=== PATIENT | female | born 1935 | race Caucasian/White ===

== ENCOUNTER 2017-01-18 04:27 | Inpatient (IN) ==
[2017-01-18] MEDS ORDERED: BISACODYL 10 MG SUPP.RECT PR PRN ×2 (07:11→22:37)
[2017-01-18] MEDS ORDERED: ONDANSETRON 4 MG/2 ML VIAL IV PRN ×4 (07:11→22:37)
[2017-01-18] MEDS ORDERED: HYDROmorphone 2 MG/ML SYRINGE IV PRN (07:11)
[2017-01-18] MEDS ORDERED: ACETAMINOPHEN 1,000 MG/100 ML BOTTLE IV PRN ×2 (07:11→22:37)
[2017-01-18] MEDS ORDERED: ACETAMINOPHEN 325 MG TABLET PO PRN (07:11)
[2017-01-18] MEDS ORDERED: PANTOPRAZOLE 40 MG VIAL IV SCH (07:30)
[2017-01-18] MEDS ORDERED: 0.9 % SODIUM CHLORIDE 250 ML IV SCH (08:00)
--- NOTE | 2017-01-18 08:43 | History and Physical Report ---
DATE OF ADMISSION: 01/18/2017 REASON FOR ADMISSION: Fall with left shoulder injury. HISTORY OF CHIEF COMPLAINT: The patient is a 81-year-old who was seen in [place] at [facility] after she fell in the bathroom, sustaining injury to right shoulder. Initial workup revealed comminuted fracture of left shoulder. Exact precipitant of fall was unclear; however, patient was confused. She to attempting to take a shower. Initial evaluation by the EMS Service revealed low blood sugars around 30. Other than that, patient denies loss of consciousness, incontinence, recent diarrhea, weakness, or medication changes, chest palpitation, thunderclap headaches. There were no available beds at [facility]. Hospitalist Service at [facility] was consulted along with Orthopedic Surgeon, Dr. Boyce and Egg Smeller, Dr. Yeung by Dr. Fisher, [facility] physician. The patient was subsequently transferred. Initial workup including chest imaging was negative except for white count of 17.4. The patient has been afebrile and hemodynamically stable. REVIEW OF SYSTEMS: Ten-point review of system was performed and negative except the ones discussed above. PAST MEDICAL HISTORY: 1. Significant for ESRD on hemodialysis since 2014, managed by Dr. Gilbert. 2. Diabetes mellitus type 2. 3. Left upper extremity fistula placement with Dr. Chase, currently on Plavix. 4. Hypertension. 5. Anxiety disorder. 6. Hyperlipidemia. CURRENT MEDICATIONS: 1. Atorvastatin 80 mg. 2. Glimipiride 2 mg . 3. Sertraline 75 mg. 4. Nadolol 8 mg b.i.d. 5. Clonidine 1 tab t.i.d. 6. Levothyroxine 1 tab daily. 7. Plavix 1 tab daily. 8. Lisinopril 20 mg b.i.d. 9. Torsemide 100 mg q.a.m. ALLERGIES: KNOWN TO SULFA. FAMILY HISTORY: Significant for coronary artery disease, myocardial infarction in son and father. SOCIAL HISTORY: The patient resides at [place]. Her daughter is accompanying her. She is a former smoker, quit in 1974; occasional alcohol, as per patient once or twice a year. CODE STATUS: FULL CODE. PAST SURGICAL HISTORY: 1. Appendectomy. 2. Subclavian dialysis catheter placement. 3. Cholecystectomy. 4. Fistula placement. 5. Hysterectomy. 6. Peritoneal dialysis shunt. PHYSICAL EXAMINATION: GENERAL: The patient is alert, oriented, in moderate distress, appears pale. VITAL SIGNS: Reviewed from medical records, stable, afebrile, heart rate around 60s. HEENT: Pupils symmetric. Oral cavity is dry. No ear or nose discharge. Head is normocephalic and atraumatic. NECK: No lymphadenopathy. CHEST: S1, S2 regular rhythm. ESM grade 1. Diminished breath sounds at bases. ABDOMEN: Soft and nontender. EXTREMITIES: Left upper extremity currently in sling. Lower extremities: No cyanosis or clubbing. No joint swelling. SKIN: No suspicious lesions. PSYCHIATRIC: Alert and cooperative, mild anxiety. NEURO: Nonfocal, normal higher function on limited neuro exam. LABS AND IMAGING: White count 17.4, hemoglobin 7.4, sodium 128, potassium 4.8, creatinine 5.1. X-ray chest: Unremarkable for acute process. X-ray shoulder: Comminuted left shoulder fracture. ASSESSMENT AND PLAN: A 81-year-old with left shoulder comminuted fracture. 1. Left shoulder fracture, will be managed by Orthopedics, Dr. Boyce. 2. Hospitalist consult for medical issues: a. History of diabetes mellitus type 2. Continue basal prandial insulin. b. Hypothyroidism. Continue thyroxine. c. Hyperlipidemia. Continue statin. d. Hypertension. Continue lisinopril and nadolol. e. Anxiety disorder. Continue sertraline. f. End-stage renal disease, on hemodialysis. Continue hemodialysis per Nephrology. Dr. Yeung has been consulted by ER physician at [place]. g. History of peripheral vascular disease. Continue Plavix. h. Anemia likely secondary to chronic kidney disease-2 units blood transfusion preop. AA:alex Job ID: [id number] Doc ID: [id number] Gray Yeung MD
--- NOTE | 2017-01-18 11:06 | Cat Scan Report ---
History: Fell and fractured shoulder Findings: The shoulder was imaged in axial plane at 2.5 mm intervals. Oblique coronal and oblique sagittal along with 3-D volume rendered images were then created. There is an acute comminuted fracture of the proximal humerus. There is a transverse component through the surgical neck. There are small comminuted fractures along the medial side of the neck fracture. There is up to 45 degrees anterior angulation at the junction of the shaft and humeral head. There is impaction of the shaft into the head along the posterior aspect of the fracture line. There is also a comminuted multi partite fracture involving the greater and lesser tuberosities. The alignment of the tuberosities is nearly anatomic. There is relatively little displacement of those fragments. The humeral head remains normally aligned with the glenoid.. The fracture does not extend to the articular surface of the humerus. The scapula and clavicle are normal without evidence of fracture. The visualized left ribs are also normal with no fracture. Impression: Multi partite fracture of the surgical neck of the humerus extending into the tuberosities Interpreted and Authenticated by: Raghu Montgomery 01/18/17
[2017-01-18] MEDS ORDERED: 0.9 % SODIUM CHLORIDE 1,000 ML IV SCH ×4 (11:15→22:37)
[2017-01-18] MEDS: DOCUSATE SODIUM 100 MG CAPSULE PO SCH ×2 (12:28→21:58)
[2017-01-18] MEDS: HEPARIN 5,000 UNIT/ML VIAL SQ SCH ×2 (12:29→21:58)
[2017-01-18] MEDS: 0.9 % SODIUM CHLORIDE 10 ML SYRINGE IV SCH (12:29)
[2017-01-18 13:11] LABS: Hemoglobin A1C 4.7 % HGB (4.0-6.0)
[2017-01-18] MEDS ORDERED: hydrALAZINE 20 MG/ML VIAL IV PRN ×2 (15:13→22:37)
[2017-01-18] MEDS ORDERED: CALCIUM CARBONATE 500 MG TAB.CHEW CHEWED PRN ×2 (17:18→22:37)
[2017-01-18] MEDS ORDERED: cloNIDine HCL 0.1 MG TABLET PO PRN ×2 (17:20→22:37)
[2017-01-18] MEDS ORDERED: SEVELAMER 800 MG TABLET PO SCH (17:30)
[2017-01-18] MEDS ORDERED: cefTRIAXone 2 GM in DEXTROSE 5% IN WATER 50 ML IV SCH (18:30)
[2017-01-18] MEDS ORDERED: cefTRIAXone 1 GM VIAL ONE (19:33)
[2017-01-18] MEDS ORDERED: cefTRIAXone 2 GM VIAL ONE (19:35)
[2017-01-18] MEDS ORDERED: IOPAMIDOL 100 ML BOTTLE IJ ONE (19:42)
--- NOTE | 2017-01-18 19:44 | Internal Med Progress Note ---
Medical - PN: Subj Patient information: Note initiated : 01/18/17 at 7:40 pm Service Date, if different from initiated Date: [] Patient: Debra Wolff 81 y/o F admitted on 01/18/17 for Fracture/dislocation. Chief Complaint: [] Interval history: /-patient admitted after a fall with right humerus and hip fracture. History of ESRD on HD management nephrology. Await orthopedics intervention. Review postop - Constitutional Vitals: Vital Signs Temp Pulse Resp BP Pulse Ox 99.8 F H 86 18 159/46 94 01/18/17 16:00 01/18/17 16:00 01/18/17 16:00 01/18/17 16:00 01/18/17 16:00 Period Temp Pulse Resp BP Sys/Spence Pulse Ox Last 24 Hr 98.7 F-99.8 F 62-93 17-20 109-197/31-92 92-95 Intake and Output 01/18/17 01/18/17 01/18/17 05:59 13:59 21:59 Intake Total 700 / 700 107 / 107 Output Total 40453 / 64161 5704 / 5704 Balance -24030 / -86722 -5597 / -5597 Weight 120 lb 8 oz Patient Weight 01/19/17 05:59 Weight 120 lb 8 oz Intake & Output: Intake & Output 01/18/17 01/18/17 01/18/17 05:59 13:59 21:59 Intake Total 700 / 700 107 / 107 Output Total 69308 / 24123 5704 / 5704 Balance -49436 / -68272 -5597 / -5597 Weight 120 lb 8 oz Intake: IV 107 / 107 Sodium Chloride 0.9% 250 7 / 7 ml @ 20 mls/hr IV . [id number] [facility] Rx#:[id number] Blood Product 700 / 700 Output: Hemodialysis UF 83231 / 43637 5704 / 5704 General appearance: cooperative, no acute distress Medical - PN: Obj Da - Labs CBC & Chem 7: 01/19/17 05:35 01/19/17 05:35 Meds: Medications Acetaminophen (Tylenol) 650 mg PO Q4-6HP PRN PRN Reason: PAIN/FEVER > 101 Bisacodyl (Dulcolax) 10 mg IA Q2-3DAYS PRN PRN Reason: Constipation Calcium Carbonate/Glycine (Tums) 500 mg CHEWED Q4HP PRN PRN Reason: Dyspepsia Clonidine HCl (Catapres) 0.1 mg PO TID [facility] Clonidine HCl (Catapres) 0.1 mg PO Q2HP PRN PRN Reason: Hypertension Docusate Sodium (Colace) 100 mg PO BID [facility] Last Admin: 01/18/17 12:28 Dose: Not Given Heparin Sodium (Porcine) (Heparin) 5,000 unit SQ Q12 [facility] Last Admin: 01/18/17 12:29 Dose: Not Given Hydralazine HCl (Apresoline) 10 mg IV Q4-6HP PRN PRN Reason: Hypertension Hydromorphone HCl (Dilaudid) 0 mg IV Q4HP PRN PRN Reason: Pain Last Admin: 01/18/17 09:34 Dose: 0.5 mg Acetaminophen (Ofirmev) 1,000 mg in 100 mls @ 200 mls/hr IV Q6HP PRN PRN Reason: PAIN/FEVER > 101 Last Infusion: 01/18/17 17:15 Dose: Infused Sodium Chloride (Sodium Chloride 0.9%) 250 mls @ 20 mls/hr IV .[id number] [facility] Stop: 01/18/17 20:29 Last Infusion: 01/18/17 14:30 Dose: Infused Sodium Chloride (Sodium Chloride 0.9%) 1,000 mls @ 50 mls/hr IV .Q20H [facility] Stop: 01/19/17 07:14 Last Admin: 01/18/17 12:00 Dose: 50 mls/hr Ceftriaxone Sodium 2 gm/ (Dextrose) 50 mls @ 100 mls/hr IV Q24H [facility] Lisinopril (Zestril) 20 mg PO BID [facility] Minoxidil (Minoxidil) 2.5 mg PO BID [facility] Nadolol (Corgard) 80 mg PO BID [facility] Ondansetron HCl (Zofran) 4 mg IV Q4-6HP PRN PRN Reason: Nausea And Vomiting Pantoprazole Sodium (Protonix) 40 mg IV QAMAC [facility] Last Admin: 01/18/17 13:11 Dose: 40 mg Senna/Docusate Sodium (Senna Plus Tablet) 1 tab PO HS [facility] Sevelamer Carbonate (Renvela) 1,600 mg PO TIDCC [facility] Last Admin: 01/18/17 18:37 Dose: Not Given Sodium Chloride (Saline Flush) 10 ml IV Q8 [facility] Last Admin: 01/18/17 12:29 Dose: Not Given Torsemide (Demadex) 100 mg PO DAILY [facility] Medical - PN: A/P - Time Spent With Patient Total time spent is greater than 50% in coordination of care (as documented) at patient's floor/unit and/or counseling patient: 25 - 35 minutes (1) Closed left hip fracture Status: Acute Assessment and plan: * left hip fracture-orthopedics on board. Surgery today * Left shoulder fracture-nonoperable as per surgery * Pain management on as needed opioids Issues managed by hospitalist service * Hypertension meds on hold * history of PVD/upper extremity fistula lacement by IR-on Plavix * ESRD on HD Current Visit: Yes Medical - PN: Qual - VTE Deep Vein Thrombosis/Pulmonary Embolism Present on Admission: No
[2017-01-18] MEDS ORDERED: KETAMINE 100 MG/ML ML IV ONE (20:45)
[2017-01-18] MEDS ORDERED: MIDAZOLAM 5 MG/5 ML VIAL IV ONE (20:45)
[2017-01-18] MEDS ORDERED: DEXAMETHASONE 10 MG/ML VIAL IV ONE (20:45)
[2017-01-18] MEDS ORDERED: PROPOFOL 200 MG/20 ML VIAL IV ONE (20:45)
[2017-01-18] MEDS ORDERED: NADOLOL 40 MG TABLET PO SCH (21:00)
[2017-01-18] MEDS ORDERED: cloNIDine HCL 0.1 MG TABLET PO SCH (21:00)
[2017-01-18] MEDS ORDERED: LISINOPRIL 20 MG TABLET PO SCH (21:00)
[2017-01-18] MEDS ORDERED: SENNOSIDES/DOCUSATE SODIUM 1 TAB TABLET PO SCH (21:00)
[2017-01-18] MEDS ORDERED: MINOXIDIL 2.5 MG TABLET PO SCH (21:00)
[2017-01-18] MEDS ORDERED: IPRATROPIUM/ALBUTEROL 3 ML AMPUL.NEB NEB PRN ×2 (21:06→22:37)
[2017-01-18] MEDS ORDERED: NALOXONE HCL 0.4 MG/ML VIAL IV PRN ×2 (21:06→22:37)
[2017-01-18] MEDS ORDERED: 0.9 % SODIUM CHLORIDE 250 ML IV PRN ×2 (21:06→22:37)
[2017-01-18] MEDS ORDERED: diphenhydrAMINE 50 MG/ML VIAL IV PRN ×2 (21:06→22:37)
[2017-01-18] MEDS ORDERED: METHOCARBAMOL 1,000 MG/10 ML VIAL IV PRN ×2 (21:06→22:37)
[2017-01-18] MEDS ORDERED: fentaNYL 100 MCG/2 ML VIAL IV PRN ×2 (21:06→22:37)
[2017-01-18] MEDS ORDERED: BENZOCAINE/MENTHOL 1 LOZENGE PO PRN ×2 (21:06→22:37)
[2017-01-18] MEDS ORDERED: FLUMAZENIL 0.1 MG/ML ML IV PRN ×2 (21:06→22:37)
[2017-01-18] MEDS ORDERED: PROMETHAZINE 25 MG/ML VIAL IV PRN ×2 (21:06→22:37)
--- NOTE | 2017-01-18 21:31 | Brief Operative Note ---
Date of procedure: 01/18/17 Pre-op diagnosis: left hip gamma nail Post-op diagnosis: same Grafts/Implants: Yes Anesthesia: GETA Complications: none Surgeon: Jacinto Boyce Ends Breakage Clerk: Panfilo Guzman Estimated blood loss (cc): 50 Specimens Removed/Pathology: none sent Condition: stable Disposition: PACU
--- NOTE | 2017-01-18 22:10 | General Surgery Progress Note ---
Subjective Narrative: Note initiated : 01/18/17 at 10:04 pm Service Date, if different from initiated Date: [] Patient: Debra Wolff 81 y/o F admitted on 01/18/17 for Fracture/dislocation. Chief Complaint: [] Objective Temp Pulse Resp BP Pulse Ox 99.8 F H 86 18 159/46 94 01/18/17 16:00 01/18/17 16:00 01/18/17 16:00 01/18/17 16:00 01/18/17 16:00 - Additional Data Intake & Output - Last 24 hours: Intake & Output 01/16/17 01/17/17 01/18/17 01/19/17 05:59 05:59 05:59 05:59 Intake Total 1607 / 1607 Output Total 87111 / 58956 Balance - / - Weight 120 lb 8 oz - Labs Diabetes panel 01/18/17 Range/Units 11:27 Hemoglobin A1c 4.7 (4.0-6.0) % [facility] Medical - PN: A/P - Time Spent With Patient Total time spent is greater than 50% in coordination of care (as documented) at patient's floor/unit and/or counseling patient: less than 15 minutes - Narrative A/P Narrative: Patient with EKG changes in PACU on 3 lead telemetry. Repeat 12 Lead EKG ordered and obtained in PACU. Computerized read suggests diffuse ischemia (see EKG printout in chart). Dr. Isaacs called and notified of EKG changes. Patient is asymptomatic with stable vital signs following stable interoperative course. Dr. Isaacs ordered cardiac enzymes. 500 cc fluid challenge administered in PACU. Patient will be transferred to telemetry with Dr. Isaacs managing care upon discharge from PACU.
[2017-01-18] MEDS ORDERED: 0.9 % SODIUM CHLORIDE 500 ML IV ONE (22:22)
[2017-01-18 23:10] LABS: Creatine Kinase 288 IU/L (24-170); Creatine Kinase MB 3.6 ng/ml (0-2.9)
[2017-01-19] MEDS: 0.9 % SODIUM CHLORIDE 10 ML SYRINGE IV SCH ×4 (00:34→22:22)
[2017-01-19] MEDS ORDERED: METOPROLOL TARTRATE 5 MG/5 ML VIAL IV ONE ×3 (00:54→01:14)
[2017-01-19] MEDS: METOPROLOL TARTRATE 5 MG/5 ML VIAL IV SCH ×3 (00:55→01:16)
--- NOTE | 2017-01-19 05:48 | Consultation ---
DATE OF CONSULTATION: 01/18/2017 TYPE OF CONSULTATION: Renal artery and __ consultation. REFERRING PHYSICIAN: Gray Rivas MD REASON FOR CONSULTATION: End-stage renal disease on hemodialysis. HISTORY OF PRESENT ILLNESS: Miss Wolff is a 81-year-old female who has end-stage renal disease and hemodialysis at [facility]. She has dialysis on Tuesdays, and Saturdays. She presented to the [place] emergency room after a fall. She sustained injury to her left shoulder. It appears that she was hypoglycemic at the time. When the EMT arrived and checked her blood sugar, her sugar was around 30. She denies any loss of consciousness. From the [facility] emergency room, she was transferred to [facility] because there were no beds avaialble at [facility]. She is also found to have fracture of left hip. PAST MEDICAL HISTORY significant for: 1. End-stage renal disease, on hemodialysis since 01/08/2015. She dialyses on Sunday, and Saturdays at [facility]. 2. Type 1 diabetes with all of the complciations of diabetes including diabetic retinopathy, neuorpathy and nephropathy. 3. Difficult hypertension. 4. Anxiety disorder. 5. Hyperlipidemia. CURRENT MEDICATIONS: Currently, she is on Atorvastatin 80 mg once daily. Glimepiride 2 mg once daily. Sertraline 75 mg once daily. Nadolol 80 mg twice daily. Claritin 0.1 mg three times daily. Levothyroxine 1 tablet once daily. Plavix 1 tablet daily. Lisinopril 20 mg twice daily. Torsemide 100 mg once daily. ALLERGIES: ALLERGIC TO SULFA. FAMILY HISTORY: Sgnificant for coronary artery disease. Her son of an [place]. SOCIAL HISTORY: The patient lives in [place]. Her daughter is a [employer] sql developer in [place]. CODE STATUS: She is FULL CODE. PAST SURGICAL HISTORY: history of hemodialysis catheter placement, cholecystectomy, a fistula surgery, hysterectomy, and she had a peritoneal dialysis catheter as well. PHYSICAL EXAMINATION: VITAL SIGNS: Her blood pressure is 170-190 systolic with a diastolic in the 50s. Pulse is in the 60s. Pulse oximetry was 92-95 percent on room air. GENERAL: She is alert, oriented times 3. She is not in any distress. HEENT: NC/AT, PERRLA, EOMI. No pallor, no cyanosis, no icterus. Fundus examination is not performed. tympanic membranes appear normal. Oral cavity appears normal. Normal mucosa. NECK: Supple. No jugulovenous distention or lymphadenopathy. No thyromegaly. No carotid bruits. LUNGS: Decreased air entry bilaterally. No rales or rhonchi. HEART: S1 and S2 heard. No S3 or S4. No murmurs, no rubs. ABDOMEN: Soft, nontender, no organomegaly. Positive bowel sounds. No mass, no rebound. EXTREMITIES: Did not show evidence of edema. Difficult to palpate dorsalis pedis and posterior tibialis. No skin rash or joint swelling is noted. NEURO: Her higher functions are normal. Cranial nerves are normal. No sensory or motor deficits. LABORATORY DATA: Apparently, she had a hemoglobin of 7.4 [address] lab done at [facility]. Her creatinine was 5.1 with a potassium of 4.8. ASSESMENT AND PLAN: 1. End-stage renal disease secondary to type 1 diabetes. She usually dialyzes on Sunday, and Sunday at the [facility]. She is due for dialysis today and I have written the orders and I saw the patient on dialysis. She is being dialyzed with a potassium of 3.0 with calcium of 2.5 and will have about 2 liters of fluid removed. 2. Anemia of multiple factors. She will receive 2 units of blood transfusion. 3. Multiple other problems, management per hospitalist. NOMI: Job ID: [id number] Doc ID: [id number] Jose Rivas MD [facility]
--- NOTE | 2017-01-19 06:09 | Orthopedic Progress Note ---
Subjective Patient information: Note initiated : 01/19/17 at 6:07 am Service Date, if different from initiated Date: [] Patient: Derba Wolff 81 y/o F admitted on 01/18/17 for Fracture/dislocation. Chief Complaint: [] Principal diagnosis: S/P left cephalomedullary nailing Interval history: Doing well this morning. Alert and oriented. States that hip feels better and is having no pain just laying there like she was yesterday. Still has some anticipated pain with PROM. No complaints today. Went into Afib last night after surgery but was converted back to normal sinus rhythm early this morning. Scheduled for dialysis today. Objective Vital signs: Vital Signs Temp Pulse Pulse Pulse Resp BP BP 01/19/17 01:50 97.5 F L 128 H 14 114/50 01/19/17 01:00 97.6 F 144 H 14 131/40 01/19/17 00:27 97.5 F L 132 H 14 107/60 01/19/17 00:04 97.5 F L 123 H 14 111/48 01/18/17 23:30 97.5 F L 136 H 14 114/65 01/18/17 23:15 97.5 F L 121 H 16 122/78 01/18/17 23:00 121 H 16 120/75 01/18/17 22:45 129 H 16 121/72 01/18/17 22:40 134 H 18 149/64 01/18/17 22:25 129 H 20 123/43 01/18/17 22:10 97.8 F 132 H 18 140/60 01/18/17 21:55 139 H 18 140/60 01/18/17 21:40 97.8 F 86 86 18 110/26 01/18/17 16:00 99.8 F H 86 18 159/46 01/18/17 14:17 99.1 F 71 194/66 01/18/17 14:02 75 193/92 01/18/17 13:45 93 H 197/42 01/18/17 13:32 68 174/44 01/18/17 13:12 68 181/44 01/18/17 12:58 66 162/33 01/18/17 12:42 65 156/31 01/18/17 12:28 81 134/76 01/18/17 12:14 65 159/31 01/18/17 12:00 98.7 F 66 20 01/18/17 11:58 66 141/45 01/18/17 11:44 67 155/58 01/18/17 11:28 62 116/68 01/18/17 11:19 98.8 F 81 109/42 01/18/17 08:00 99.1 F 71 18 01/18/17 06:45 99.1 F 66 17 BP Pulse Ox 01/19/17 01:50 01/19/17 01:00 98 01/19/17 00:27 98 01/19/17 00:04 95 01/18/17 23:30 96 01/18/17 23:15 97 01/18/17 23:00 99 01/18/17 22:45 99 01/18/17 22:40 99 01/18/17 22:25 99 01/18/17 22:10 99 01/18/17 21:55 99 01/18/17 21:40 01/18/17 16:00 94 01/18/17 14:17 01/18/17 14:02 01/18/17 13:45 01/18/17 13:32 01/18/17 13:12 01/18/17 12:58 01/18/17 12:42 01/18/17 12:28 01/18/17 12:14 01/18/17 12:00 141/45 95 01/18/17 11:58 01/18/17 11:44 01/18/17 11:28 01/18/17 11:19 01/18/17 08:00 132/48 92 01/18/17 06:45 138/46 95 Intake and Output 01/18/17 01/19/17 01/19/17 21:59 05:59 13:59 Intake Total 907 / 907 290 / 290 Output Total 5754 / 5754 Balance -4847 / -4847 290 / 290 Intake: IV 907 / 907 50 / 50 Sodium Chloride 0.9% 250 7 / 7 ml @ 20 mls/hr IV . [id number] [facility] Rx#:[id number] Dextrose 5% in Water 50 50 / 50 ml @ 100 mls/hr IV Q24H [facility] with Rocephin 2 gm Rx #:[id number] Oral 240 / 240 Output: Hemodialysis UF 5704 / 5704 Estimated Blood Loss 50 / 50 Intake & Output: Intake & Output 01/18/17 01/19/17 01/19/17 21:59 05:59 13:59 Intake Total 907 / 907 290 / 290 Output Total 5754 / 5754 Balance -4847 / -4847 290 / 290 Intake: IV 907 / 907 50 / 50 Sodium Chloride 0.9% 250 7 / 7 ml @ 20 mls/hr IV . [id number] [facility] Rx#:[id number] Dextrose 5% in Water 50 50 / 50 ml @ 100 mls/hr IV Q24H [facility] with Rocephin 2 gm Rx #:[id number] Oral 240 / 240 Output: Hemodialysis UF 5704 / 5704 Estimated Blood Loss 50 / 50 Incision: Yes clean and dry Incision clean and dry: Yes Dressing: Yes clean, Yes dry, Yes intact Weight bearing status: non Neurological exam IM: Yes alert, Yes oriented X3, Yes motor sensory intact Extremities exam IM: No calf tenderness, No Hetal's sign, Yes neurovascular intact - Periperhal Pulses Peripheral pulses: 2+: dorsalis pedis (L), dorsalis pedis (R), posterior tibialis (L), posterior tibialis (R) - Labs CBC & BMP: 01/19/17 05:35 01/19/17 05:35 Labs: 01/19/17 05:35 Hgb Pending Hct Pending Assessment and Plan (1) Closed left hip fracture PO day 1 s/p left cephalomedullary nailing; nondisplaced acetabular fracture; displaced 3 part prox humerus fracture; TTWB but due to the proximal humerus fracture she will need to be in a wheelchair as she can't use that shoulder with a walker NWB Left upper extremity Probably need for SNF placement Status: Acute Qualifiers: Encounter type: subsequent encounter Fracture healing: with routine healing Qualified Code(s): S72.002D - Fracture of unspecified part of neck of left femur, subsequent encounter for closed fracture with routine healing
[2017-01-19 06:25] LABS: Mean Cell Volume 94.3 fL (80.0-100.0); Mean Corpuscular Hemoglobin 31.1 pg (26.0-34.0); Platelet Count 200 K/mcL (140-440); RBC 3.78 M/mcL (4.00-5.20); Red Cell Distribution Width 16.4 % (11.5-14.5)
[2017-01-19 06:30] LABS: Creatine Kinase MB 6.7 ng/ml (0-2.9)
[2017-01-19 06:32] LABS: ALT/SGPT 47 U/l (0-40); Albumin 3.4 gm/dL (3.2-5.2); Albumin/Globulin Ratio 0.9 (1.0-2.3); Alkaline Phosphatase 174 U/L (39-117); Bilirubin,Direct 0.3 mg/dL (0.0-0.3); Blood Urea Nitrogen 22 mg/dl (8-23); Gamma Glutamyl Transpeptidase 91 U/L (5-36); Magnesium 2.1 mg/dL (1.6-2.5); Phosphorous 5.7 mg/dL (2.7-4.5); Uric Acid 3.2 mg/dL (2.5-8.0)
[2017-01-19 06:59] LABS: Anisocytosis 1+ (NONE SEEN); Band Neutrophils % 4 % (0-10); Lymphocytes % 6 % (15-49); Monocytes % (Manual) 2 % (1-9); Platelet Estimate NORMAL (NORMAL); RBC Morphology ABNORM (NORMAL); Segmented Neutrophils % 88 % (38-78); Toxic Granulation 1+ (NONE SEEN)
--- NOTE | 2017-01-19 07:42 | Cat Scan Report ---
History: Fell with left-sided hip injury Findings: The pelvis is imaged without contrast at 2.5 mm intervals. Sagittal and coronal reformats were created. There is an acute minimally displaced fracture involving the anterior column of the left acetabulum. There are spurs along the margin of the greater trochanter. There is no clearly identified fracture of the proximal femur. There is also a fracture in the left inferior pubic ramus. A subtle vertically oriented fracture is present in the medial side of the left pubic bone, contiguous with the symphysis pubis.. There is subcutaneous edema lateral to the hip. No intrapelvic hematoma is present. Left SI joint is normal. Impression: Fractures of the anterior column of the left ischium, left inferior pubic ramus and left pubic bone The ICU was called with results Interpreted and Authenticated by: Raghu Montgomery 01/19/17
--- NOTE | 2017-01-19 07:50 | XRay Report ---
HISTORY: Reason for Exam:surgery FINDINGS: A brandon has been inserted through the greater trochanter into the mid shaft of the femur. There is a crossing pin extending through the brandon into the femoral head. No fracture line is seen in the femoral neck or intertrochanteric region. There are small spur along the margin of the greater trochanter. The fractured left inferior pubic ramus is in good alignment. Vascular calcifications are present in the pelvis and groin. The bowel gas pattern is normal. IMPRESSION: Well-positioned hardware in the proximal femur Interpreted and Authenticated by: Raghu Montgomery 01/19/17
[2017-01-19] MEDS: PANTOPRAZOLE 40 MG VIAL IV SCH (07:56)
--- NOTE | 2017-01-19 07:56 | Cat Scan Report ---
CLINICAL INFORMATION: Pulsatile mass in the midabdomen and pelvic fracture COMPARISON: None. TECHNIQUE: 100-cc of Optiray 320 were injected intravenously and using SmartPrep, 0.625 helical slices were obtained throughout the entire abdominal aorta and iliac arteries. Following reconstruction, 2.5-mm axial, sagittal, and coronal images were processed and reviewed. 3D images were also processed. FINDINGS: There are thin bands of scar or discoid atelectasis in the lung bases. The liver and spleen are normal in size and homogeneous. The gallbladder is been removed. The pancreas and adrenals are normal. The kidneys are normal in size and contour and there is no hydronephrosis or significant loss of renal parenchyma. There are densely calcified plaques along the wall normal caliber abdominal aorta. There is no aneurysm or dissection. There is severe atherosclerotic disease causing severe stenosis at the origins of the celiac and superior mesenteric arteries. There are relatively mild stenosis at the origins of the renal arteries. There is no abdominal mass or adenopathy. No ascites is present. There is no intraperitoneal hemorrhage. There are numerous diverticula in the sigmoid colon but without evidence of diverticulitis. A large amount of fecal material is present in the colon. The small bowel is mild ileus pattern. There is a buckle fracture along the anterior margin of the superior portion of the left sacrum. This was outside of the field of view on the preceding hip CT.12 fractures are again noted in the anterior: Left acetabulum left inferior pubic ramus and pubic bone. There is severe disc space narrowing at L5-S1. IMPRESSION: 1. Atherosclerosis in the aorta but there is no aneurysm. 2. Fracture left sacrum, left ischium and left pubic bone 3. Diverticulosis 4. Dr. Rivas was called with results Interpreted and Authenticated by: Raghu Montgomery 01/19/17
[2017-01-19] MEDS ORDERED: TORSEMIDE 10 MG TABLET PO SCH (09:00)
--- NOTE | 2017-01-19 09:31 | History and Physical Report ---
DATE OF ADMISSION: 01/18/2017 CHIEF COMPLAINT: Left shoulder and hip pain. HISTORY: The patient is a 81-year-old female who fell in the bathroom onto her left shoulder and hip. She did not hit her head, had no loss of consciousness. However, she felt that this may be related to low blood sugar which was found to be 30 at that time. She was initially transferred to [facility] and then transferred to [facility] due to bed availability. She is complaining of shoulder and hip pain. No other abnormalities or no other complaints at this time. PAST MEDICAL HISTORY: 1. End-stage renal disease on hemodialysis. 2. Type 2 diabetes. 3. Left upper extremity fistula placement. 4. Hypertension. 5. Anxiety. 6. Hyperlipidemia. PAST SURGICAL HISTORY: 1. Fistula placement. 2. Appendectomy. 3. Cholecystectomy. 4. Hysterectomy. 5. Peritoneal dialysis shunt. MEDICATIONS: 1. Atorvastatin 80 mg p.o. q. day. 2. Glimepiride 2 mg p.o. q. day. 3. Sertraline 75 mg p.o. q. day. 4. Nadolol 8 mg p.o. b.i.d. 5. Clonidine one tablet t.i.d. 6. Levothyroxine one tablet p.o. q. day. 7. Plavix one tablet p.o. q. day. 8. Lisinopril 20 mg p.o. b.i.d. 9. Torsemide 100 mg q.a.m. ALLERGIES: SULFA. FAMILY HISTORY: Significant for coronary artery disease, myocardial infarction. SOCIAL HISTORY: She lives in [place] with her . She is accompanied by her family. She quit smoking in 1974. Occasional alcohol once or twice per year. REVIEW OF SYSTEMS: No recent chest pain, shortness of breath, fever, chills, nausea, vomiting, diarrhea or constipation. PHYSICAL EXAMINATION: GENERAL: Resting on the hospital bed in [id number] pain, alert and oriented x 3 and cooperative to exam. VITALS: Heart rate 60 to 80, temperature 98.6, BP 176/68, sats 98% on room air. HEART: Regular rate and rhythm without murmur or gallop. CHEST: Clear to auscultation in all lung frazier bilaterally. ABDOMEN: Soft, nontender, nondistended. EXTREMITIES: Left upper extremity is in a sling. She is tender to palpation, has some bruising in this area. Full range of motion of the elbow, wrist and fingers. Sensation intact to light touch grossly throughout the extremity, 2+ DP and PT with capillary refill less than 2 seconds. Left hip demonstrates tenderness to palpation in the groin and over the greater trochanter. Pain with any attempt to move the hip. Full range of motion of the right upper and lower extremity. Sensation intact in the lower extremities to light touch grossly, 2+ DP and PT with capillary refill less than 2 seconds. DIAGNOSTIC STUDIES: Radiographs and CT were performed both of the left hip and the left shoulder. Left shoulder demonstrates a comminuted proximal humerus fracture four-part with varus impaction of about 30 degrees. Otherwise stable and in adequate position. The humeral head is well-seated within the glenoid and reduced. The left hip CT demonstrates a nondisplaced intertrochanteric fracture which extends to the greater trochanteric region. There is a nondisplaced lateral acetabular fracture up into the rami. ASSESSMENT: 1. Left proximal humerus comminuted fracture with mild varus angulation but overall in adequate position. 2. Nondisplaced left hip intertrochanteric fracture. 3. Nondisplaced lateral acetabular rim fracture. PLAN: We talked at length about the option on her shoulder. Because of her medical condition and the adequate position currently, we felt that we should watch it and treat it conservatively. We will place her in a sling. No motion of the shoulder at this point. We will plan to see her back in about a week and repeat radiographs to make sure there is no further displacement. If it continues to show adequate position, we will continue to follow it with the goal of it healing nonoperatively. We talked about the possibility and need for physical therapy down the road and possible contracture she could get potentially. As far as the acetabulum goes, it is a small nondisplaced lateral fracture which should heal well. We will have her remain nonweightbearing for about 4 weeks and then gradually progress her weightbearing from there. The intertrochanteric fracture is concerning for potential displacement down the road. We talked about nonoperative versus operative treatment, and she is in quite a bit of pain and with the higher risk of transition to possible displacement, we felt that surgical intervention was warranted. Our plan will be for a left hip intermedullary nailing with a short Gamma nail. The risks and benefits were discussed with the patient in detail including, but not limited to, the risks of anesthesia, problems with the heart or lungs related to anesthesia, infection, compromise or injury to the nerves and blood vessels, deep venous thrombosis, pulmonary embolism, pneumonia, continued pain after surgery, worsening pain or symptoms after surgery, swelling, loss of motion, need for repeat surgery, hardware failure, re-tear or failure of repair site, malunion, nonunion, and hardware pain requiring future removal. We talked about the postoperative course in detail. She and her family wish to proceed. DARRIUS:marija Job ID: [id number] Doc ID: [id number] Hardik Boyce MD
[2017-01-19] MEDS: HEPARIN 5,000 UNIT/ML VIAL SQ SCH ×2 (09:32→22:15)
[2017-01-19] MEDS: LISINOPRIL 20 MG TABLET PO SCH ×2 (09:32→22:17)
[2017-01-19] MEDS: DOCUSATE SODIUM 100 MG CAPSULE PO SCH ×2 (09:33→22:16)
[2017-01-19] MEDS: SEVELAMER 800 MG TABLET PO SCH ×3 (09:33→18:41)
[2017-01-19] MEDS: cloNIDine HCL 0.1 MG TABLET PO SCH ×3 (09:33→22:17)
[2017-01-19] MEDS: cefTRIAXone 2 GM in DEXTROSE 5% IN WATER 50 ML IV SCH (09:36)
--- NOTE | 2017-01-19 09:36 | Operative Note ---
DATE OF OPERATION: 01/18/2017 PREOPERATIVE DIAGNOSIS: Intertrochanteric fracture, left hip. POSTOPERATIVE DIGNOSIS: Intertrochanteric fracture, left hip. PROCEDURE: Left hip cephalomedullary nailing. SURGEON: Hardik Boyce M.D. HANDLE BENDER SURGEON: Panfilo Guzman PA-C. ANESTHESIA: Spinal with LMA assist. ESTIMATED BLOOD LOSS: 50 mL. COMPLICATIONS: None noted. SPECIMENS REMOVED: None. DRAINS: None. IMPLANTS: Yumiko Gamma nail short, 130 degree with an 85 mm lag screw and 5 x 35 mm distal cortical screw. INDICATIONS: The patient fell and was unable to ambulate. Radiographs have confirmed a displaced intertrochanteric fracture of the proximal femur. The patient was admitted to the hospital and underwent medical clearance. After a long discussion about treatment options, the patient elected to proceed with cephalomedullary nailing. The risks and benefits were discussed with the patient in detail including, but not limited to, the risks of anesthesia, problems with the heart or lungs related to anesthesia, infection, compromise or injury to the nerves and blood vessels, deep venous thrombosis, pulmonary embolism, pneumonia, continued pain after surgery, worsening pain or symptoms after surgery, swelling, loss of motion, malunion, non-union, leg length discrepancy, and need for repeat surgery. DESCRIPTION OF PROCEDURE: The patient was seen in pre-anesthesia waiting room where all questions were answered and the correct side and site were identified and marked. The patient was then brought to the operating room and administered the anesthetic and given preoperative antibiotics. A time-out was then called. The patient was placed on the fracture table with all prominences well padded. The leg was brought into traction, adduction, and slight internal rotation. We used C-arm with orthogonal views to confirm anatomic reduction of the fracture. The extremity was prepped and draped in the usual sterile fashion. C-arm was again used to confirm landmarks. A percutaneous incision was created about 4 centimeters proximal to the greater trochanter. A guide pin was placed into the femoral canal under fluoroscopy after we found the appropriate starting position along the medial boarder of the trochanter and just anterior to the center position laterally. We placed a protector sleeve proximally and over-reamed with the 17 mm proximal reamer. Next, we changed out the guide pin for a ball-tipped guide brandon and placed it into the femoral canal. Position was confirmed with the C-arm. The 180 mm Yumiko Gamma nail was then placed with appropriate depth and version using the percutaneous targeting guide. The lateral lag screw sleeve was placed in the targeting guide and a second small percutaneous incision was made to allow the sleeve access to the lateral cortex of the femur. We drilled the guide pin into the center - center position of the femoral head confirmed with fluoroscopy. We measured and drilled over the guide pin. The lag screw was then inserted and we compressed the fracture then placed the proximal screw. The targeting sleeve was again used to place a percutaneous 5.0 mm screw distally in the static hole. It was drilled, measured, and placed using C-arm guidance. Traction was removed on the hip. The targeting device was then removed and final radiographs were taken confirming reduction of the fracture and adequate placement of all hardware. We thoroughly irrigated the three percutaneous incisions and closed the deep fascia with #0 Vicryl. We closed the subcutaneous tissue and skin in layers out to sonja in the skin. A sterile pressure dressing was applied. All needle and sponge counts were correct. The patient was transferred to the recovery room in stable condition. Kim Job ID: [id number] Doc ID: [id number] Hardik Boyce MD
[2017-01-19] MEDS: NADOLOL 40 MG TABLET PO SCH ×2 (09:37→22:15)
[2017-01-19] MEDS: MINOXIDIL 2.5 MG TABLET PO SCH ×2 (10:04→22:14)
[2017-01-19] MEDS: TORSEMIDE 10 MG TABLET PO SCH (10:04)
[2017-01-19] MEDS: ACETAMINOPHEN 325 MG TABLET PO PRN ×2 (10:05→22:16)
--- NOTE | 2017-01-19 12:27 | Internal Med Progress Note ---
Medical - PN: Subj Patient information: Note initiated : 01/19/17 at 12:18 pm Service Date, if different from initiated Date: [] Patient: Debra Wolff 81 y/o F admitted on 01/18/17 for Fracture/Dislocation , Left Shoulder Fracture. Chief Complaint: [] Interval history: 01/18-patient admitted after a fall with Lt humerus and hip fracture. History of ESRD on HD management nephrology. Await orthopedics intervention. Review postop. 01/19-patient seen in room. anesthesia concerned about Intra-Op EKG changes including ST depression. Serial troponins uptrending from 0.06-0.15 likely secondary to anesthesia induced demand ischemia. however patient clearly is asymptomatic without any pain diaphoresis dizziness or unstable hemodynamics. Continue serial trending. patient already on aspirin and Plavix and statin. Patient will require outpatient cardiac stress testing. Extensive peripheral vascular disease as evident on abdominal imaging. hemodialysis ongoing. Postoperative care as per orthopedics along with aggressive rehabilitation. - Constitutional Vitals: Vital Signs Temp Pulse Resp BP Pulse Ox 98.1 F 65 16 167/32 97 01/19/17 10:40 01/19/17 11:50 01/19/17 07:57 01/19/17 11:50 01/19/17 07:57 Period Temp Pulse Resp BP Sys/Spence Pulse Ox Last 24 Hr 97.5 F-99.8 F 65-144 14-20 107-197/26-92 94-99 Intake and Output 01/18/17 01/19/17 01/19/17 21:59 05:59 13:59 Intake Total 907 / 907 290 / 290 400 / 400 Output Total 5754 / 5754 4048 / 4048 Balance -4847 / -4847 290 / 290 -3648 / -3648 Intake & Output: Intake & Output 01/18/17 01/19/17 01/19/17 21:59 05:59 13:59 Intake Total 907 / 907 290 / 290 400 / 400 Output Total 5754 / 5754 4048 / 4048 Balance -4847 / -4847 290 / 290 -3648 / -3648 Intake: IV 907 / 907 50 / 50 50 / 50 Sodium Chloride 0.9% 250 7 / 7 ml @ 20 mls/hr IV . [id number] TERESA Rx#:[id number] Dextrose 5% in Water 50 50 / 50 50 / 50 ml @ 100 mls/hr IV Q24H TERESA with Rocephin 2 gm Rx #:[id number] Oral 240 / 240 350 / 350 Output: Hemodialysis UF 5704 / 5704 4048 / 4048 Estimated Blood Loss 50 / 50 Other: Meal Breakfast Percent of Meal Consumed 100% General appearance: cooperative, no acute distress Exam: alert oriented Left shoulder in sling Left hip postoperative dressing Hemodialysis ongoing no anxiety or agitation nonlabored breathing Medical - PN: Obj Da - Labs CBC & Chem 7: 01/19/17 05:35 01/19/17 05:35 Labs: Abnormal Lab Results 01/19/17 01/19/17 01/19/17 05:35 05:35 05:35 WBC RBC Hgb Hct POC Hct RDW Seg Neutrophils % Lymphocytes % WBC Morphology Toxic Granulation RBC Morphology Anisocytosis POC Chloride Chloride 94 L Carbon Dioxide 21 L Anion Gap 20.0 H Creatinine 3.5 H POC Creatinine Glucose 153 H POC WB Ioniz Calcium Phosphorus 5.7 H GGT 91 H AST 61 H ALT 47 H Alkaline Phosphatase 174 H Lactate Dehydrogenase 387 H Total Creatine Kinase 296 H CK-MB (CK-2) 6.7 H Troponin T 0.15 H* Albumin/Globulin Ratio 0.9 L Triglycerides 178 H 01/19/17 01/18/17 01/18/17 05:35 22:05 22:05 WBC 17.2 H RBC 3.78 L Hgb 11.8 L Hct 35.6 L POC Hct RDW 16.4 H Seg Neutrophils % 88 H Lymphocytes % 6 L WBC Morphology Abnorm A Toxic Granulation 1+ A RBC Morphology Abnorm A Anisocytosis 1+ A POC Chloride Chloride Carbon Dioxide Anion Gap Creatinine POC Creatinine Glucose POC WB Ioniz Calcium Phosphorus GGT AST ALT Alkaline Phosphatase Lactate Dehydrogenase Total Creatine Kinase 288 H CK-MB (CK-2) 3.6 H Troponin T 0.06 H* Albumin/Globulin Ratio Triglycerides 01/18/17 20:20 WBC RBC Hgb Hct POC Hct 31.0 L RDW Seg Neutrophils % Lymphocytes % WBC Morphology Toxic Granulation RBC Morphology Anisocytosis POC Chloride 93 L Chloride Carbon Dioxide Anion Gap Creatinine POC Creatinine 3.0 H Glucose POC WB Ioniz Calcium 1.05 L Phosphorus GGT AST ALT Alkaline Phosphatase Lactate Dehydrogenase Total Creatine Kinase CK-MB (CK-2) Troponin T Albumin/Globulin Ratio Triglycerides Meds: Medications Acetaminophen (Tylenol) 650 mg PO Q4-6HP PRN PRN Reason: PAIN/FEVER > 101 Last Admin: 01/19/17 10:05 Dose: 650 mg Bisacodyl (Dulcolax) 10 mg OR Q2-3DAYS PRN PRN Reason: Constipation Calcium Carbonate/Glycine (Tums) 500 mg CHEWED Q4HP PRN PRN Reason: Dyspepsia Clonidine HCl (Catapres) 0.1 mg PO Q2HP PRN PRN Reason: Hypertension Clonidine HCl (Catapres) 0.1 mg PO TID [facility] Last Admin: 01/19/17 09:33 Dose: 0.1 mg Docusate Sodium (Colace) 100 mg PO BID [facility] Last Admin: 01/19/17 09:33 Dose: 100 mg Heparin Sodium (Porcine) (Heparin) 5,000 unit SQ Q12 [facility] Last Admin: 01/19/17 09:32 Dose: 5,000 unit Hydralazine HCl (Apresoline) 10 mg IV Q4-6HP PRN PRN Reason: Hypertension Hydromorphone HCl (Dilaudid) 0 mg IV Q4HP PRN PRN Reason: Pain Acetaminophen (Ofirmev) 1,000 mg in 100 mls @ 200 mls/hr IV Q6HP PRN PRN Reason: PAIN/FEVER > 101 Ceftriaxone Sodium 2 gm/ (Dextrose) 50 mls @ 100 mls/hr IV Q24H [facility] Last Infusion: 01/19/17 10:06 Dose: Infused Lisinopril (Zestril) 20 mg PO BID [facility] Last Admin: 01/19/17 09:32 Dose: 20 mg Minoxidil (Minoxidil) 2.5 mg PO BID [facility] Last Admin: 01/19/17 10:04 Dose: 2.5 mg Nadolol (Corgard) 80 mg PO BID [facility] Last Admin: 01/19/17 09:37 Dose: 80 mg Ondansetron HCl (Zofran) 4 mg IV Q4-6HP PRN PRN Reason: Nausea And Vomiting Pantoprazole Sodium (Protonix) 40 mg IV QAMAC [facility] Last Admin: 01/19/17 07:56 Dose: 40 mg Senna/Docusate Sodium (Senna Plus Tablet) 1 tab PO HS [facility] Sevelamer Carbonate (Renvela) 1,600 mg PO TIDCC [facility] Last Admin: 01/19/17 09:33 Dose: 1,600 mg Sodium Chloride (Saline Flush) 10 ml IV Q8 [facility] Last Admin: 01/19/17 05:37 Dose: 10 ml Torsemide (Demadex) 100 mg PO DAILY [facility] Last Admin: 01/19/17 10:04 Dose: 100 mg Medical - PN: A/P - Time Spent With Patient Total time spent is greater than 50% in coordination of care (as documented) at patient's floor/unit and/or counseling patient: 25 - 35 minutes (1) Closed left hip fracture Status: Acute Assessment and plan: * left hip fracture-orthopedics on board. postop day 1. management per orthopedics * Left shoulder fracture-nonoperable as per surgery.on shoulder immobilization s per orthopedics * Pain management on as needed opioids Issues managed by hospitalist service * Systemic inflammatory response syndrome-leukocytosis 17,400 likely secondary to fracture induced stress. cultures negative so far. no overnight fever. * Non-ST elevation myocardial infarction with uptrending troponin-likely secondary to anesthesia induced demand ischemia. Peak troponin 0.15. Continue serial trending.Continue aspirin and Plavixstatin. Patient will require outpatient cardiology follow-up * Hypertension- on home meds managed by nephrology. * dM type II-continue prandial insulin * Peripheral Vascular disease continue Plavix/statin Plan * ESRD on HD management nephrology * SIRS workup. * postoperative managed per orthopedics * Serial troponins * Outpatient cardiac consultation for stress testing in light of elevated troponins Current Visit: Yes Medical - PN: Qual - VTE Deep Vein Thrombosis/Pulmonary Embolism Present on Admission: No
--- NOTE | 2017-01-19 15:03 | Nephrology Progress Note ---
Subjective Patient information: Note initiated : 01/19/17 at 3:00 pm Service Date, if different from initiated Date: [] Patient: Debra Wolff 81 y/o F admitted on 01/18/17 for Fracture/Dislocation , Left Shoulder Fracture. Chief Complaint: S/p hip surgery. She is doing well. Principal diagnosis: S/P left cephalomedullary nailing Objective - Vital Signs Vital signs: Vital Signs Temp Pulse Pulse Pulse Resp BP BP 01/19/17 12:40 98.2 F 66 161/51 01/19/17 12:00 98.3 F 65 20 162/37 01/19/17 11:50 65 167/32 01/19/17 11:13 66 197/46 01/19/17 11:10 68 162/37 01/19/17 10:40 98.1 F 96 H 144/35 01/19/17 08:00 73 16 01/19/17 07:57 97.6 F 73 16 179/71 01/19/17 01:50 97.5 F L 128 H 14 114/50 01/19/17 01:00 97.6 F 144 H 14 131/40 01/19/17 00:27 97.5 F L 132 H 14 107/60 01/19/17 00:04 97.5 F L 123 H 14 111/48 01/18/17 23:30 97.5 F L 136 H 14 114/65 01/18/17 23:15 97.5 F L 121 H 16 122/78 01/18/17 23:00 121 H 16 120/75 01/18/17 22:45 129 H 16 121/72 01/18/17 22:40 134 H 18 149/64 01/18/17 22:25 129 H 20 123/43 01/18/17 22:10 97.8 F 132 H 18 140/60 01/18/17 21:55 139 H 18 140/60 01/18/17 21:40 97.8 F 86 86 18 110/26 01/18/17 16:00 99.8 F H 86 18 159/46 Pulse Ox 01/19/17 12:40 01/19/17 12:00 100 01/19/17 11:50 01/19/17 11:13 01/19/17 11:10 01/19/17 10:40 01/19/17 08:00 97 01/19/17 07:57 97 01/19/17 01:50 01/19/17 01:00 98 01/19/17 00:27 98 01/19/17 00:04 95 01/18/17 23:30 96 01/18/17 23:15 97 01/18/17 23:00 99 01/18/17 22:45 99 01/18/17 22:40 99 01/18/17 22:25 99 01/18/17 22:10 99 01/18/17 21:55 99 01/18/17 21:40 01/18/17 16:00 94 Intake and Output 01/19/17 01/19/17 01/19/17 05:59 13:59 21:59 Intake Total 290 / 290 400 / 400 240 / 240 Output Total 6048 / 6048 Balance 290 / 290 -5648 / -5648 240 / 240 Intake: IV 50 / 50 50 / 50 Dextrose 5% in Water 50 50 / 50 50 / 50 ml @ 100 mls/hr IV Q24H TERESA with Rocephin 2 gm Rx #:[id number] Oral 240 / 240 350 / 350 240 / 240 Output: Hemodialysis UF 6048 / 6048 Other: Meal Breakfast Lunch Percent of Meal Consumed 100% 75% Feeding Ability Assist with Tray Set Up Intake & Output: Intake & Output 01/19/17 01/19/17 01/19/17 05:59 13:59 21:59 Intake Total 290 / 290 400 / 400 240 / 240 Output Total 6048 / 6048 Balance 290 / 290 -5648 / -5648 240 / 240 Intake: IV 50 / 50 50 / 50 Dextrose 5% in Water 50 50 / 50 50 / 50 ml @ 100 mls/hr IV Q24H TERESA with Rocephin 2 gm Rx #:[id number] Oral 240 / 240 350 / 350 240 / 240 Output: Hemodialysis UF 6048 / 6048 Other: Meal Breakfast Lunch Percent of Meal Consumed 100% 75% Feeding Ability Assist with Tray Set Up - General Appearance General appearance: appears started age EENT: ATNC Neck: no JVD Respiratory: no kyphosis Cardiology: no murmurs Gastrointestinal: normoactive bowel sounds Integumentary: no rash Neurologic: no focal deficit - Lab 01/19/17 05:35 01/19/17 05:35 Most recent lab results Calcium 8.6 mg/dl (8.6-10.4) 01/19/17 05:35 Phosphorus 5.7 mg/dL (2.7-4.5) H 01/19/17 05:35 Magnesium 2.1 mg/dL (1.6-2.5) 01/19/17 05:35 Assessment and Plan (1) End stage renal disease on dialysis She had dialysis treatment done yesterday and tolerated it. She had contrast study last night. So will redo the HD again today. BP is high. I have requested home meds. I have written dialysis orders for tomorrow. I will not be rounding on her. Please do not hesitate to contact me with any questions. Status: Acute
[2017-01-19 15:44] LABS: Creatine Kinase 384 IU/L (24-170); Creatine Kinase MB 10.5 ng/ml (0-2.9)
[2017-01-19] MEDS ORDERED: CLOPIDOGREL 75 MG TABLET PO ONE (16:15)
[2017-01-19] MEDS ORDERED: ASPIRIN 81 MG TAB.CHEW PO ONE (16:15)
[2017-01-19] MEDS: SENNOSIDES/DOCUSATE SODIUM 1 TAB TABLET PO SCH (22:14)
[2017-01-19] MEDS: ATORVASTATIN 20 MG TABLET PO SCH (22:20)
[2017-01-19] MEDS: HYDROmorphone 2 MG/ML SYRINGE IV PRN (22:41)
[2017-01-20] MEDS: 0.9 % SODIUM CHLORIDE 10 ML SYRINGE IV SCH ×3 (04:19→20:31)
[2017-01-20 05:32] LABS: ALT/SGPT 34 U/l (0-40); Albumin 3.1 gm/dL (3.2-5.2); Albumin/Globulin Ratio 1.1 (1.0-2.3); Alkaline Phosphatase 131 U/L (39-117); Bilirubin,Direct < 0.2 mg/dL (0.0-0.3); Blood Urea Nitrogen 23 mg/dl (8-23); Gamma Glutamyl Transpeptidase 58 U/L (5-36); Phosphorous 3.2 mg/dL (2.7-4.5); Uric Acid 2.9 mg/dL (2.5-8.0)
[2017-01-20 06:26] LABS: Mean Cell Volume 94.6 fL (80.0-100.0); Mean Corpuscular HGB Conc 32.9 g/dL (31.0-36.0); Mean Corpuscular Hemoglobin 31.1 pg (26.0-34.0); Platelet Count 217 K/mcL (140-440); RBC 2.82 M/mcL (4.00-5.20); Red Cell Distribution Width 15.6 % (11.5-14.5)
[2017-01-20 06:30] LABS: Anisocytosis 1+ (NONE SEEN); Band Neutrophils % 3 % (0-10); Eosinophils % (Manual) 3 % (0-7); Lymphocytes % 16 % (15-49); Monocytes % (Manual) 5 % (1-9); Platelet Estimate NORMAL (NORMAL); RBC Morphology ABNORM (NORMAL); Segmented Neutrophils % 73 % (38-78); Toxic Granulation 1+ (NONE SEEN)
[2017-01-20] MEDS: LEVOTHYROXINE 100 MCG TABLET PO SCH (07:23)
[2017-01-20] MEDS: PANTOPRAZOLE 40 MG VIAL IV SCH (07:23)
[2017-01-20] MEDS: HYDROmorphone 2 MG/ML SYRINGE IV PRN ×4 (08:01→20:30)
[2017-01-20] MEDS: SEVELAMER 800 MG TABLET PO SCH ×4 (09:23→17:47)
[2017-01-20] MEDS: cloNIDine HCL 0.1 MG TABLET PO SCH ×4 (09:24→20:26)
[2017-01-20] MEDS: CLOPIDOGREL 75 MG TABLET PO SCH (09:25)
[2017-01-20] MEDS: MINOXIDIL 2.5 MG TABLET PO SCH ×2 (09:26→20:27)
[2017-01-20] MEDS: TORSEMIDE 10 MG TABLET PO SCH (09:36)
[2017-01-20] MEDS: cefTRIAXone 2 GM in DEXTROSE 5% IN WATER 50 ML IV SCH (09:42)
[2017-01-20] MEDS: LISINOPRIL 20 MG TABLET PO SCH ×2 (09:43→20:25)
[2017-01-20] MEDS: DOCUSATE SODIUM 100 MG CAPSULE PO SCH ×2 (09:43→20:26)
[2017-01-20] MEDS: ASPIRIN 81 MG TAB.CHEW PO SCH (09:44)
[2017-01-20] MEDS: NADOLOL 40 MG TABLET PO SCH ×2 (09:44→20:26)
[2017-01-20] MEDS: HEPARIN 5,000 UNIT/ML VIAL SQ SCH ×2 (09:46→20:26)
--- NOTE | 2017-01-20 10:31 | Orthopedic Progress Note ---
Subjective Patient information: Note initiated : 01/20/17 at 10:29 am Service Date, if different from initiated Date: [] Patient: Debra Wolff 81 y/o F admitted on 01/18/17 for Fracture/Dislocation , Left Shoulder Fracture. Chief Complaint: [] Patient is doing well and is awake and oriented. She has been up on the edge of her bed but has not ambulated yet. Denies any calf tenderness. Principal diagnosis: S/P left cephalomedullary nailing Objective Vital signs: Vital Signs Temp Pulse Pulse Resp BP BP BP 01/20/17 04:00 98.7 F 59 L 14 154/56 01/20/17 00:00 98.5 F 62 16 124/81 01/19/17 20:00 98.4 F 63 18 164/66 01/19/17 16:00 98.7 F 65 18 145/52 01/19/17 14:21 65 01/19/17 12:40 98.2 F 66 161/51 01/19/17 12:00 98.3 F 65 20 162/37 01/19/17 11:50 65 167/32 01/19/17 11:13 66 197/46 01/19/17 11:10 68 162/37 01/19/17 10:40 98.1 F 96 H 144/35 Pulse Ox 01/20/17 04:00 97 01/20/17 00:00 97 01/19/17 20:00 99 01/19/17 16:00 100 01/19/17 14:21 01/19/17 12:40 01/19/17 12:00 100 01/19/17 11:50 01/19/17 11:13 01/19/17 11:10 01/19/17 10:40 Intake and Output 01/19/17 01/20/17 01/20/17 21:59 05:59 13:59 Intake Total 980 / 980 240 / 240 Balance 980 / 980 240 / 240 Intake: Oral 980 / 980 240 / 240 Other: Meal Dinner Percent of Meal Consumed 25% Feeding Ability Assist with Tray Set Up Weight 114 lb Intake & Output: Intake & Output 01/19/17 01/20/17 01/20/17 21:59 05:59 13:59 Intake Total 980 / 980 240 / 240 Balance 980 / 980 240 / 240 Weight 114 lb Intake: Oral 980 / 980 240 / 240 Other: Meal Dinner Percent of Meal Consumed 25% Feeding Ability Assist with Tray Set Up Incision: Yes clean and dry Incision clean and dry: Yes Dressing: Yes clean, Yes dry, Yes intact Weight bearing status: non Neurological exam IM: Yes neurovascular intact Extremities exam IM: Yes calf tenderness (Negative), Yes Hetal's sign (Negative) - Labs CBC & BMP: 01/20/17 03:25 01/20/17 03:25 Labs: 01/20/17 01/19/17 03:25 05:35 Hgb 8.8 L 11.8 L Hct 26.7 L 35.6 L Assessment and Plan (1) Closed left hip fracture Patient will continue non-weightbearing/toe-touch weight bearing status on LLE. Ambulate with PT. Status: Acute Qualifiers: Encounter type: subsequent encounter Fracture healing: with routine healing Qualified Code(s): S72.002D - Fracture of unspecified part of neck of left femur, subsequent encounter for closed fracture with routine healing
--- NOTE | 2017-01-20 12:41 | Internal Med Progress Note ---
Medical - PN: Subj Patient information: Note initiated : 01/20/17 at 12:37 pm Service Date, if different from initiated Date: [] Patient: Debra Wolff 81 y/o F admitted on 01/18/17 for Fracture/Dislocation , Left Shoulder Fracture. Chief Complaint: [] Interval history: 01/18-patient admitted after a fall with Lt humerus and hip fracture. History of ESRD on HD management nephrology. Await orthopedics intervention. Review postop. 01/19-patient seen in room. anesthesia concerned about Intra-Op EKG changes including ST depression. Serial troponins uptrending from 0.06-0.15 likely secondary to anesthesia induced demand ischemia. however patient clearly is asymptomatic without any pain diaphoresis dizziness or unstable hemodynamics. Continue serial trending. patient already on aspirin and Plavix and statin. Patient will require outpatient cardiac stress testing. Extensive peripheral vascular disease as evident on abdominal imaging. hemodialysis ongoing. Postoperative care as per orthopedics along with aggressive rehabilitation. EKG no significant change. ADDENDUM 01/19- 18:00 - case discussed with Dr Conti stone driller helper at [facility] as [place] did not have tele beds. Knitter Mechanic recommended medical management as 16 Hrs out troponin level 0.28 is quite reassuring for a minor ischemic event likely precipitated by surgery/ stress. He recommended ASA/ plavix to continue along with statin and a B Natalie. Also Echo and OP nuke stress test on discharge. 01/20- troponin at 0.27 at 24 hours with a peak of 0.28. No chest pain. On aspirin and Plavix/statin. Scheduled outpatient nuclear studies on discharge. Recovering well from hip surgery. No significant postoperative pain. Patient expresses concern about left shoulder fracture and nonoperative management and wanted a second opinion from orthopedics. I subsequently discussed case with Dr. Levi Wilson would see the patient and reviewing images for further advice. I then informed patient about discussion with Dr. Wilson. Patient had hemodialysis yesterday. Managed by nephrology. No overnight fever chills or other concerns per staff. No telemetry events. - Constitutional Vitals: Vital Signs Temp Pulse Resp BP Pulse Ox 98.1 F 48 L 14 126/38 97 01/20/17 11:40 01/20/17 12:10 01/20/17 04:00 01/20/17 12:10 01/20/17 04:00 Period Temp Pulse Resp BP Sys/Spence Pulse Ox Last 24 Hr 98.1 F-98.7 F 48-67 14-18 124-164/38-81 97-100 Intake and Output 01/19/17 01/20/17 01/20/17 21:59 05:59 13:59 Intake Total 980 / 980 240 / 240 Output Total 439 / 439 Balance 980 / 980 240 / 240 -439 / -439 Weight 114 lb Intake & Output: Intake & Output 01/19/17 01/20/17 01/20/17 21:59 05:59 13:59 Intake Total 980 / 980 240 / 240 Output Total 439 / 439 Balance 980 / 980 240 / 240 -439 / -439 Weight 114 lb Intake: Oral 980 / 980 240 / 240 Output: Hemodialysis UF 439 / 439 Other: Meal Dinner Percent of Meal Consumed 25% Feeding Ability Assist with Tray Set Up General appearance: cooperative, no acute distress Exam: alert oriented nonlabored breathing No lymphedema mild anxiety Left arm in sling Medical - PN: Obj Da - Labs CBC & Chem 7: 01/20/17 03:25 01/20/17 03:25 Labs: Abnormal Lab Results 01/20/17 01/20/17 01/20/17 10:20 03:25 03:25 WBC 14.2 H RBC 2.82 L Hgb 8.8 L Hct 26.7 L POC Hct RDW 15.6 H Seg Neutrophils % Lymphocytes % WBC Morphology Abnorm A Toxic Granulation 1+ A RBC Morphology Abnorm A Anisocytosis 1+ A RBC Fragments Occ A Sodium 130 L POC Chloride Chloride 90 L Carbon Dioxide Anion Gap Creatinine 3.6 H POC Creatinine Glucose 183 H Calcium 8.3 L POC WB Ioniz Calcium Phosphorus GGT 58 H AST 40 H ALT Alkaline Phosphatase 131 H Lactate Dehydrogenase 330 H Total Creatine Kinase CK-MB (CK-2) Troponin T 0.27 H* Albumin 3.1 L Albumin/Globulin Ratio Triglycerides 155 H 01/19/17 01/19/17 01/19/17 14:19 14:19 05:35 WBC RBC Hgb Hct POC Hct RDW Seg Neutrophils % Lymphocytes % WBC Morphology Toxic Granulation RBC Morphology Anisocytosis RBC Fragments Sodium POC Chloride Chloride Carbon Dioxide Anion Gap Creatinine POC Creatinine Glucose Calcium POC WB Ioniz Calcium Phosphorus GGT AST ALT Alkaline Phosphatase Lactate Dehydrogenase Total Creatine Kinase 384 H CK-MB (CK-2) 10.5 H Troponin T 0.28 H* 0.15 H* Albumin Albumin/Globulin Ratio Triglycerides 01/19/17 01/19/17 01/19/17 05:35 05:35 05:35 WBC 17.2 H RBC 3.78 L Hgb 11.8 L Hct 35.6 L POC Hct RDW 16.4 H Seg Neutrophils % 88 H Lymphocytes % 6 L WBC Morphology Abnorm A Toxic Granulation 1+ A RBC Morphology Abnorm A Anisocytosis 1+ A RBC Fragments Sodium POC Chloride Chloride 94 L Carbon Dioxide 21 L Anion Gap 20.0 H Creatinine 3.5 H POC Creatinine Glucose 153 H Calcium POC WB Ioniz Calcium Phosphorus 5.7 H GGT 91 H AST 61 H ALT 47 H Alkaline Phosphatase 174 H Lactate Dehydrogenase 387 H Total Creatine Kinase 296 H CK-MB (CK-2) 6.7 H Troponin T Albumin Albumin/Globulin Ratio 0.9 L Triglycerides 178 H 01/18/17 01/18/17 01/18/17 22:05 22:05 20:20 WBC RBC Hgb Hct POC Hct 31.0 L RDW Seg Neutrophils % Lymphocytes % WBC Morphology Toxic Granulation RBC Morphology Anisocytosis RBC Fragments Sodium POC Chloride 93 L Chloride Carbon Dioxide Anion Gap Creatinine POC Creatinine 3.0 H Glucose Calcium POC WB Ioniz Calcium 1.05 L Phosphorus GGT AST ALT Alkaline Phosphatase Lactate Dehydrogenase Total Creatine Kinase 288 H CK-MB (CK-2) 3.6 H Troponin T 0.06 H* Albumin Albumin/Globulin Ratio Triglycerides Meds: Medications Acetaminophen (Tylenol) 650 mg PO Q4-6HP PRN PRN Reason: PAIN/FEVER > 101 Last Admin: 01/19/17 22:16 Dose: 650 mg Aspirin (Aspirin) 81 mg PO DAILY [facility] Last Admin: 01/20/17 09:44 Dose: 81 mg Atorvastatin Calcium (Lipitor) 80 mg PO HS [facility] Last Admin: 01/19/17 22:20 Dose: 80 mg Bisacodyl (Dulcolax) 10 mg NM Q2-3DAYS PRN PRN Reason: Constipation Calcium Carbonate/Glycine (Tums) 500 mg CHEWED Q4HP PRN PRN Reason: Dyspepsia Clonidine HCl (Catapres) 0.1 mg PO Q2HP PRN PRN Reason: Hypertension Clonidine HCl (Catapres) 0.2 mg PO TID [facility] Last Admin: 01/20/17 09:24 Dose: 0.2 mg Clopidogrel Bisulfate (Plavix) 75 mg PO DAILY [facility] Last Admin: 01/20/17 09:25 Dose: 75 mg Docusate Sodium (Colace) 100 mg PO BID [facility] Last Admin: 01/20/17 09:43 Dose: 100 mg Heparin Sodium (Porcine) (Heparin) 5,000 unit SQ Q12 [facility] Last Admin: 01/20/17 09:46 Dose: 5,000 unit Hydralazine HCl (Apresoline) 10 mg IV Q4-6HP PRN PRN Reason: Hypertension Hydromorphone HCl (Dilaudid) 0 mg IV Q4HP PRN PRN Reason: Pain Last Admin: 01/20/17 08:01 Dose: 0.25 mg Acetaminophen (Ofirmev) 1,000 mg in 100 mls @ 200 mls/hr IV Q6HP PRN PRN Reason: PAIN/FEVER > 101 Ceftriaxone Sodium 2 gm/ (Dextrose) 50 mls @ 100 mls/hr IV Q24H [facility] Last Admin: 01/20/17 09:42 Dose: 100 mls/hr Levothyroxine Sodium (Synthroid) 100 mcg PO QAMAC [facility] Last Admin: 01/20/17 07:23 Dose: 100 mcg Lisinopril (Zestril) 20 mg PO BID [facility] Last Admin: 01/20/17 09:43 Dose: 20 mg Minoxidil (Minoxidil) 2.5 mg PO BID [facility] Last Admin: 01/20/17 09:26 Dose: 2.5 mg Nadolol (Corgard) 80 mg PO BID [facility] Last Admin: 01/20/17 09:44 Dose: 80 mg Ondansetron HCl (Zofran) 4 mg IV Q4-6HP PRN PRN Reason: Nausea And Vomiting Pantoprazole Sodium (Protonix) 40 mg IV QAMAC [facility] Last Admin: 01/20/17 07:23 Dose: 40 mg Senna/Docusate Sodium (Senna Plus Tablet) 1 tab PO HS [facility] Last Admin: 01/19/17 22:14 Dose: 1 tab Sertraline HCl (Zoloft) 75 mg PO DAILY [facility] Sevelamer Carbonate (Renvela) 1,600 mg PO TIDCC [facility] Last Admin: 01/20/17 09:23 Dose: 1,600 mg Sodium Chloride (Saline Flush) 10 ml IV Q8 [facility] Last Admin: 01/20/17 04:19 Dose: 10 ml Torsemide (Demadex) 100 mg PO DAILY [facility] Last Admin: 01/20/17 09:36 Dose: 100 mg Medical - PN: A/P - Time Spent With Patient Total time spent is greater than 50% in coordination of care (as documented) at patient's floor/unit and/or counseling patient: 25 - 35 minutes (1) Closed left hip fracture Status: Acute Assessment and plan: * left hip fracture-orthopedics on board. postop day 2. management per orthopedics * Left shoulder fracture-nonoperable as per surgery.on shoulder immobilization s per orthopedics,however patient insists on second opinion. Dr. Meza consulted. * Pain management- stable Issues managed by hospitalist service * Non-ST elevation myocardial infarction-peak troponin 0.28. Case discussed with cardiology. Recommended medical management on aspirin and Plavix and statin. schedule outpatient nuclear stress test. Echo ordered * Systemic inflammatory response syndrome- improving leukocytosis at 14.2. likely fracture/surgery induced stress response * Non-ST elevation myocardial infarction with uptrending troponin-likely secondary to anesthesia induced demand ischemia. Peak troponin 0.15. Continue serial trending.Continue aspirin and Plavixstatin. Patient will require outpatient cardiology follow-up * Hypertension- on home meds managed by nephrology. * DM type II-continue prandial insulin * Peripheral Vascular disease continue Plavix/statin Plan * postoperative care per orthopedics * left shoulder fracture second opinion from Dr. Levi Wilson(on patient's request) * ESRD on HD management nephrology * Echocardiogram * outpatient nuclear stress test on discharge * medical management of CAD as per cardiology Current Visit: Yes Medical - PN: Qual - VTE Deep Vein Thrombosis/Pulmonary Embolism Present on Admission: No
[2017-01-20] MEDS: SERTRALINE 50 MG TABLET PO SCH (15:15)
[2017-01-20] MEDS ORDERED: 0.9 % SODIUM CHLORIDE 500 ML IV ONE (15:24)
[2017-01-20] MEDS: METOPROLOL TARTRATE 5 MG/5 ML VIAL IV SCH ×2 (15:42→15:51)
[2017-01-20] MEDS: SENNOSIDES/DOCUSATE SODIUM 1 TAB TABLET PO SCH (20:26)
[2017-01-20] MEDS: ATORVASTATIN 20 MG TABLET PO SCH (20:58)
[2017-01-21] MEDS: 0.9 % SODIUM CHLORIDE 10 ML SYRINGE IV SCH ×4 (03:55→21:13)
[2017-01-21 05:11] LABS: Mean Cell Volume 94.9 fL (80.0-100.0); Mean Corpuscular HGB Conc 33.6 g/dL (31.0-36.0); Mean Corpuscular Hemoglobin 31.9 pg (26.0-34.0); Platelet Count 219 K/mcL (140-440); RBC 2.89 M/mcL (4.00-5.20); Red Cell Distribution Width 15.4 % (11.5-14.5)
[2017-01-21 05:41] LABS: ALT/SGPT 32 U/l (0-40); Albumin 3.1 gm/dL (3.2-5.2); Albumin/Globulin Ratio 1.1 (1.0-2.3); Alkaline Phosphatase 122 U/L (39-117); Bilirubin,Direct < 0.2 mg/dL (0.0-0.3); Blood Urea Nitrogen 15 mg/dl (8-23); Gamma Glutamyl Transpeptidase 55 U/L (5-36); Magnesium 2.1 mg/dL (1.6-2.5); Uric Acid 2.2 mg/dL (2.5-8.0)
[2017-01-21 05:53] LABS: Anisocytosis 1+ (NONE SEEN); Band Neutrophils % 3 % (0-10); Eosinophils % (Manual) 1 % (0-7); Lymphocytes % 17 % (15-49); Monocytes % (Manual) 9 % (1-9); Platelet Estimate NORMAL (NORMAL); RBC Morphology ABNORM (NORMAL); Segmented Neutrophils % 70 % (38-78); Toxic Granulation 1+ (NONE SEEN)
[2017-01-21] MEDS: PANTOPRAZOLE 40 MG VIAL IV SCH (07:45)
[2017-01-21] MEDS: SEVELAMER 800 MG TABLET PO SCH ×3 (07:45→17:22)
[2017-01-21] MEDS: LEVOTHYROXINE 100 MCG TABLET PO SCH (07:45)
[2017-01-21] MEDS: cefTRIAXone 2 GM in DEXTROSE 5% IN WATER 50 ML IV SCH (09:11)
[2017-01-21] MEDS: ASPIRIN 81 MG TAB.CHEW PO SCH (09:11)
[2017-01-21] MEDS: TORSEMIDE 10 MG TABLET PO SCH (09:11)
[2017-01-21] MEDS: cloNIDine HCL 0.1 MG TABLET PO SCH ×3 (09:14→21:09)
[2017-01-21] MEDS: SERTRALINE 50 MG TABLET PO SCH (09:15)
[2017-01-21] MEDS: LISINOPRIL 20 MG TABLET PO SCH ×2 (09:15→21:09)
[2017-01-21] MEDS: CLOPIDOGREL 75 MG TABLET PO SCH (09:16)
[2017-01-21] MEDS: DOCUSATE SODIUM 100 MG CAPSULE PO SCH ×2 (09:16→21:09)
[2017-01-21] MEDS: MINOXIDIL 2.5 MG TABLET PO SCH ×2 (09:17→21:08)
[2017-01-21] MEDS: NADOLOL 40 MG TABLET PO SCH ×2 (09:18→21:08)
[2017-01-21] MEDS: HEPARIN 5,000 UNIT/ML VIAL SQ SCH ×2 (09:19→21:07)
--- NOTE | 2017-01-21 09:54 | Orthopedic Progress Note ---
Subjective Patient information: Note initiated : 01/21/17 at 9:44 am Service Date, if different from initiated Date: [] Patient: Debra Wolff 81 y/o F admitted on 01/18/17 for Fracture/Dislocation , Left Shoulder Fracture. Chief Complaint: [] Principal diagnosis: S/P left cephalomedullary nailing Interval history: doing better today. hip pain improving Objective Vital signs: Vital Signs Temp Pulse Pulse Resp BP BP BP 01/21/17 07:54 70 01/21/17 07:51 98.4 F 70 16 148/39 01/21/17 05:29 122/76 01/21/17 04:15 70 175/64 01/21/17 04:00 99.1 F 70 16 197/57 01/20/17 23:54 97.9 F 110 H 16 144/75 01/20/17 20:00 107 H 01/20/17 19:54 97.3 F L 20 112/58 01/20/17 15:25 98.2 F 20 92/48 01/20/17 14:40 98.5 F 82 126/56 01/20/17 14:10 75 158/32 01/20/17 13:40 58 L 211/76 01/20/17 12:43 98 H 180/38 01/20/17 12:41 61 207/66 01/20/17 12:10 48 L 126/38 01/20/17 12:00 98.1 F 20 180/38 01/20/17 11:40 98.1 F 61 164/40 Pulse Ox 01/21/17 07:54 01/21/17 07:51 98 01/21/17 05:29 01/21/17 04:15 01/21/17 04:00 98 01/20/17 23:54 99 01/20/17 20:00 01/20/17 19:54 98 01/20/17 15:25 98 01/20/17 14:40 01/20/17 14:10 01/20/17 13:40 01/20/17 12:43 01/20/17 12:41 01/20/17 12:10 01/20/17 12:00 95 01/20/17 11:40 Intake and Output 01/20/17 01/21/17 01/21/17 21:59 05:59 13:59 Intake Total 120 / 120 300 / 300 Output Total 6411 / 6411 Balance -6291 / -6291 300 / 300 Intake: Oral 120 / 120 300 / 300 Output: Hemodialysis UF 6411 / 6411 Other: Meal Dinner Percent of Meal Consumed 50% Feeding Ability Assist with Tray Set Up # Bowel Movements 0 Weight 114 lb 8 oz Intake & Output: Intake & Output 01/20/17 01/21/17 01/21/17 21:59 05:59 13:59 Intake Total 120 / 120 300 / 300 Output Total 6411 / 6411 Balance -6291 / -6291 300 / 300 Weight 114 lb 8 oz Intake: Oral 120 / 120 300 / 300 Output: Hemodialysis UF 6411 / 6411 Other: Meal Dinner Percent of Meal Consumed 50% Feeding Ability Assist with Tray Set Up # Bowel Movements 0 Incision: Yes healing, Yes clean and dry Incision clean and dry: Yes Dressing: Yes clean, Yes dry Weight bearing status: non Neurological exam IM: Yes abnormal gait, Yes alert, Yes oriented X3, Yes motor sensory intact, Yes neurovascular intact Extremities exam IM: No calf tenderness, Yes Foot pink and warm, Yes neurovascular intact - Labs CBC & BMP: 01/21/17 03:29 01/21/17 03:29 Labs: 01/21/17 01/20/17 01/19/17 03:29 03:25 05:35 Hgb 9.2 L 8.8 L 11.8 L Hct 27.4 L 26.7 L 35.6 L Assessment and Plan (1) Closed left hip fracture pod 2 s/p left hip gamma nail. left proximal humerus fracture non-operative treatment NWB LUE, NWB LLE but ok to stand and pivot for transfers ok for rehab when ok per medicine f/u in office in 10-14 days. Status: Acute Qualifiers: Encounter type: subsequent encounter Fracture healing: with routine healing Qualified Code(s): S72.002D - Fracture of unspecified part of neck of left femur, subsequent encounter for closed fracture with routine healing
--- NOTE | 2017-01-21 10:01 | Internal Med Progress Note ---
Medical - PN: Subj Patient information: Note initiated : 01/21/17 at 9:57 am Service Date, if different from initiated Date: [] Patient: Debra Wolff 81 y/o F admitted on 01/18/17 for Fracture/Dislocation , Left Shoulder Fracture. Chief Complaint: [] Interval history: 01/18-patient admitted after a fall with Lt humerus and hip fracture. History of ESRD on HD management nephrology. Await orthopedics intervention. Review postop. 01/19-patient seen in room. anesthesia concerned about Intra-Op EKG changes including ST depression. Serial troponins uptrending from 0.06-0.15 likely secondary to anesthesia induced demand ischemia. however patient clearly is asymptomatic without any pain diaphoresis dizziness or unstable hemodynamics. Continue serial trending. patient already on aspirin and Plavix and statin. Patient will require outpatient cardiac stress testing. Extensive peripheral vascular disease as evident on abdominal imaging. hemodialysis ongoing. Postoperative care as per orthopedics along with aggressive rehabilitation. EKG no significant change. ADDENDUM 01/19- 18:00 - case discussed with Dr Conti systems lead at [facility] as [place] did not have tele beds. Tree Trimmer recommended medical management as 16 Hrs out troponin level 0.28 is quite reassuring for a minor ischemic event likely precipitated by surgery/ stress. He recommended ASA/ plavix to continue along with statin and a B Natalie. Also Echo and OP nuke stress test on discharge. 01/20- troponin at 0.27 at 24 hours with a peak of 0.28. No chest pain. On aspirin and Plavix/statin. Scheduled outpatient nuclear studies on discharge. Recovering well from hip surgery. No significant postoperative pain. Patient expresses concern about left shoulder fracture and nonoperative management and wanted a second opinion from orthopedics. I subsequently discussed case with Dr. Levi Wilson would see the patient and review images for further advice. I then informed patient about discussion with Dr. Wilson. Patient had hemodialysis yesterday. Managed by nephrology. No overnight fever chills or other concerns per staff. No telemetry events. 01/21- Patient complaining of left elbow pain. No overnight events. paroxysmal A. fib rate controlled and intermittently in sinus. Hemodialysis yesterday. patient's chads score is over 2 mandating anticoagulation on Coumadin however being on aspirin and Plavix patient will be a high risk bleeding. at this time will continue an aspirin Plavix/beta natalie and have patient follow outpatient cardiology/nuclear stress test on discharge. orthopedics recommends discharging in 24 hours. no overnight fever chills nausea vomiting. Telemetry paroxysmal A. fib. white count down to 11.8 from 14.2. Afebrile. - Constitutional Vitals: Vital Signs Temp Pulse Resp BP Pulse Ox 98.4 F 70 16 148/39 98 01/21/17 07:51 01/21/17 07:54 01/21/17 07:51 01/21/17 07:51 01/21/17 07:51 Period Temp Pulse Resp BP Sys/Spence Pulse Ox Last 24 Hr 97.3 F-99.1 F 48-110 16-20 92-211/32-76 95-99 Intake and Output 01/20/17 01/21/17 01/21/17 21:59 05:59 13:59 Intake Total 120 / 120 300 / 300 200 / 200 Output Total 6411 / 6411 Balance -6291 / -6291 300 / 300 200 / 200 Weight 114 lb 8 oz Intake & Output: Intake & Output 01/20/17 01/21/17 01/21/17 21:59 05:59 13:59 Intake Total 120 / 120 300 / 300 200 / 200 Output Total 6411 / 6411 Balance -6291 / -6291 300 / 300 200 / 200 Weight 114 lb 8 oz Intake: Oral 120 / 120 300 / 300 200 / 200 Output: Hemodialysis UF 6411 / 6411 Other: Meal Dinner Breakfast Percent of Meal Consumed 50% 50% Feeding Ability Assist with Tray Set Up Assist with Tray Set Up # Bowel Movements 0 General appearance: cooperative, no acute distress Exam: lert and oriented left arm in sling Left hipPostop dressing No anxiety telemetry proximal A. fib Nonlabored breathing Medical - PN: Obj Da - Labs CBC & Chem 7: 01/21/17 03:29 01/21/17 03:29 Labs: Abnormal Lab Results 01/21/17 01/21/17 01/20/17 03:29 03:29 10:20 WBC 11.8 H RBC 2.89 L Hgb 9.2 L Hct 27.4 L POC Hct RDW 15.4 H Seg Neutrophils % Lymphocytes % WBC Morphology Abnorm A Vacuolated Neuts 1+ A Toxic Granulation 1+ A RBC Morphology Abnorm A Anisocytosis 1+ A RBC Fragments Sodium POC Chloride Chloride 95 L Carbon Dioxide Anion Gap Creatinine 3.0 H POC Creatinine Glucose 117 H Uric Acid 2.2 L Calcium 8.3 L POC WB Ioniz Calcium Phosphorus GGT 55 H AST ALT Alkaline Phosphatase 122 H Lactate Dehydrogenase 312 H Total Creatine Kinase CK-MB (CK-2) Troponin T 0.27 H* Albumin 3.1 L Albumin/Globulin Ratio Triglycerides 170 H 01/20/17 01/20/17 01/19/17 03:25 03:25 14:19 WBC 14.2 H RBC 2.82 L Hgb 8.8 L Hct 26.7 L POC Hct RDW 15.6 H Seg Neutrophils % Lymphocytes % WBC Morphology Abnorm A Vacuolated Neuts Toxic Granulation 1+ A RBC Morphology Abnorm A Anisocytosis 1+ A RBC Fragments Occ A Sodium 130 L POC Chloride Chloride 90 L Carbon Dioxide Anion Gap Creatinine 3.6 H POC Creatinine Glucose 183 H Uric Acid Calcium 8.3 L POC WB Ioniz Calcium Phosphorus GGT 58 H AST 40 H ALT Alkaline Phosphatase 131 H Lactate Dehydrogenase 330 H Total Creatine Kinase CK-MB (CK-2) Troponin T 0.28 H* Albumin 3.1 L Albumin/Globulin Ratio Triglycerides 155 H 01/19/17 01/19/17 01/19/17 14:19 05:35 05:35 WBC RBC Hgb Hct POC Hct RDW Seg Neutrophils % Lymphocytes % WBC Morphology Vacuolated Neuts Toxic Granulation RBC Morphology Anisocytosis RBC Fragments Sodium POC Chloride Chloride Carbon Dioxide Anion Gap Creatinine POC Creatinine Glucose Uric Acid Calcium POC WB Ioniz Calcium Phosphorus GGT AST ALT Alkaline Phosphatase Lactate Dehydrogenase Total Creatine Kinase 384 H 296 H CK-MB (CK-2) 10.5 H 6.7 H Troponin T 0.15 H* Albumin Albumin/Globulin Ratio Triglycerides 01/19/17 01/19/17 01/18/17 05:35 05:35 22:05 WBC 17.2 H RBC 3.78 L Hgb 11.8 L Hct 35.6 L POC Hct RDW 16.4 H Seg Neutrophils % 88 H Lymphocytes % 6 L WBC Morphology Abnorm A Vacuolated Neuts Toxic Granulation 1+ A RBC Morphology Abnorm A Anisocytosis 1+ A RBC Fragments Sodium POC Chloride Chloride 94 L Carbon Dioxide 21 L Anion Gap 20.0 H Creatinine 3.5 H POC Creatinine Glucose 153 H Uric Acid Calcium POC WB Ioniz Calcium Phosphorus 5.7 H GGT 91 H AST 61 H ALT 47 H Alkaline Phosphatase 174 H Lactate Dehydrogenase 387 H Total Creatine Kinase CK-MB (CK-2) Troponin T 0.06 H* Albumin Albumin/Globulin Ratio 0.9 L Triglycerides 178 H 01/18/17 01/18/17 22:05 20:20 WBC RBC Hgb Hct POC Hct 31.0 L RDW Seg Neutrophils % Lymphocytes % WBC Morphology Vacuolated Neuts Toxic Granulation RBC Morphology Anisocytosis RBC Fragments Sodium POC Chloride 93 L Chloride Carbon Dioxide Anion Gap Creatinine POC Creatinine 3.0 H Glucose Uric Acid Calcium POC WB Ioniz Calcium 1.05 L Phosphorus GGT AST ALT Alkaline Phosphatase Lactate Dehydrogenase Total Creatine Kinase 288 H CK-MB (CK-2) 3.6 H Troponin T Albumin Albumin/Globulin Ratio Triglycerides Meds: Medications Acetaminophen (Tylenol) 650 mg PO Q4-6HP PRN PRN Reason: PAIN/FEVER > 101 Last Admin: 01/19/17 22:16 Dose: 650 mg Aspirin (Aspirin) 81 mg PO DAILY [facility] Last Admin: 01/21/17 09:11 Dose: 81 mg Atorvastatin Calcium (Lipitor) 80 mg PO HS [facility] Last Admin: 01/20/17 20:58 Dose: 80 mg Bisacodyl (Dulcolax) 10 mg MS Q2-3DAYS PRN PRN Reason: Constipation Calcium Carbonate/Glycine (Tums) 500 mg CHEWED Q4HP PRN PRN Reason: Dyspepsia Clonidine HCl (Catapres) 0.2 mg PO TID [facility] Last Admin: 01/21/17 09:14 Dose: 0.2 mg Clonidine HCl (Catapres) 0.1 mg PO Q4HP PRN PRN Reason: Hypertension Clopidogrel Bisulfate (Plavix) 75 mg PO DAILY [facility] Last Admin: 01/21/17 09:16 Dose: 75 mg Docusate Sodium (Colace) 100 mg PO BID [facility] Last Admin: 01/21/17 09:16 Dose: 100 mg Heparin Sodium (Porcine) (Heparin) 5,000 unit SQ Q12 [facility] Last Admin: 01/21/17 09:19 Dose: 5,000 unit Hydralazine HCl (Apresoline) 10 mg IV Q4-6HP PRN PRN Reason: Hypertension Last Admin: 01/21/17 03:54 Dose: 10 mg Hydromorphone HCl (Dilaudid) 0 mg IV Q4HP PRN PRN Reason: Pain Last Admin: 01/20/17 20:30 Dose: 0.25 mg Acetaminophen (Ofirmev) 1,000 mg in 100 mls @ 200 mls/hr IV Q6HP PRN PRN Reason: PAIN/FEVER > 101 Ceftriaxone Sodium 2 gm/ (Dextrose) 50 mls @ 100 mls/hr IV Q24H [facility] Last Admin: 01/21/17 09:11 Dose: 100 mls/hr Levothyroxine Sodium (Synthroid) 100 mcg PO QAMAC [facility] Last Admin: 01/21/17 07:45 Dose: 100 mcg Lisinopril (Zestril) 20 mg PO BID [facility] Last Admin: 01/21/17 09:15 Dose: 20 mg Minoxidil (Minoxidil) 2.5 mg PO BID [facility] Last Admin: 01/21/17 09:17 Dose: 2.5 mg Nadolol (Corgard) 80 mg PO BID [facility] Last Admin: 01/21/17 09:18 Dose: 80 mg Ondansetron HCl (Zofran) 4 mg IV Q4-6HP PRN PRN Reason: Nausea And Vomiting Pantoprazole Sodium (Protonix) 40 mg IV QAMAC [facility] Last Admin: 01/21/17 07:45 Dose: 40 mg Senna/Docusate Sodium (Senna Plus Tablet) 1 tab PO HS [facility] Last Admin: 01/20/17 20:26 Dose: 1 tab Sertraline HCl (Zoloft) 75 mg PO DAILY [facility] Last Admin: 01/21/17 09:15 Dose: 75 mg Sevelamer Carbonate (Renvela) 1,600 mg PO TIDCC [facility] Last Admin: 01/21/17 07:45 Dose: 1,600 mg Sodium Chloride (Saline Flush) 10 ml IV Q8 [facility] Last Admin: 01/21/17 05:09 Dose: 10 ml Torsemide (Demadex) 100 mg PO DAILY [facility] Last Admin: 01/21/17 09:11 Dose: 100 mg Medical - PN: A/P - Time Spent With Patient Total time spent is greater than 50% in coordination of care (as documented) at patient's floor/unit and/or counseling patient: 25 - 35 minutes (1) Closed left hip fracture Status: Acute Assessment and plan: * left hip fracture-orthopedics on board. postop day 3. management per orthopedics * Left shoulder fracture-nonoperable as per surgery.on shoulder immobilization s per orthopedics,however patient insists on second opinion. Dr. Meza consulted. * Left elbow pain- imaging ordered. Discussed with orthopedics. Orthopedics will review imaging for further advice * Postop pain-stable Issues managed by hospitalist service * Non-ST elevation myocardial infarction-peak troponin 0.28. Case discussed with cardiology Dr. Conti at [facility]. Recommended medical management on aspirin and Plavix and statin along with addition of beta natalie. schedule outpatient nuclear stress test. Echo read pending. * Systemic inflammatory response syndrome- improving leukocytosis at 11.8. likely trauma/surgery induced stress responsep * Hypertension- stable on home meds. Managed by nephrology * DM type II-continue prandial insulin * PVD- continue Plavix/statin Plan * possible discharge in 24 hour as per orthopedics * Orthopedics to review left elbow imaging * ESRD on HD management nephrology * await Echocardiogram * value analysis coordinator to schedule outpatient nuclear stress test on discharge * cardiology follow-up on discharge Current Visit: Yes Medical - PN: Qual - VTE Deep Vein Thrombosis/Pulmonary Embolism Present on Admission: No
[2017-01-21] MEDS: HYDROmorphone 2 MG/ML SYRINGE IV PRN ×2 (10:33→21:10)
--- NOTE | 2017-01-21 10:51 | Echocardiogram Report ---
ECHOCARDIOGRAM: 2-D and M-mode echocardiography with cardiac Doppler and color flow imaging were performed with a [employer] A[employer]io MX. (See accompanying M-mode and Doppler reports for quantitation.) INDICATION: Elevated troponin. Overall size of the four cardiac chambers and aortic root appeared normal. LV wall thickness appeared mildly to moderately increased. Systolic performance appeared hyperdynamic. Estimated ejection fraction is 75 percent. The aortic root appeared sclerotic. The aortic valve appeared trileaflet. Light leaflet calcification was present. Maximal instantaneous aortic valve flow systolic velocity was slightly elevated at 2.0 meters per second, probably high flow related. Aortic regurgitation, probably mild (1+) was noted. The mitral and tricuspid valves appeared unremarkable. Heavy calcification involving the aortic-mitral intervalvular fibrosis was noted. Doppler interrogation of LV inflow disclosed a monophasic spectral dispersion pattern related to absent AV synchrony. There was no evidence for mitral regurgitation. Pulmonary venous interrogation appeared to show normal \\"S\\" wave dominance. The pulmonic valve is not visualized. Pulmonary artery acceleration time appeared normal. There was no evidence for pulmonic stenosis or pulmonic regurgitation. There was no evidence for tricuspid regurgitation. No intracardiac shunting was appreciated. There was no evidence of pericardial effusion. The IVC was narrow and showed normal respiratory variation. Atrial fibrillation with a moderate response was present. CONCLUSION: Technically difficult study due to immobile left shoulder/hemodialysis during exam. Aortic root sclerosis. Light aortic leaflet calcification with adequate valve opening and aortic regurgitation, probably mild (1+). Mild to moderate concentric LVH with hyperdynamic systolic performance. Heavy calcification, aortic-mitral intervalvular fibrosa. (See accompanying M-mode and Doppler reports for quantitation). ECHOCARDIOGRAPHY M-MODE CALCULATIONS: HT: 5 feet 1 inch. WT: 114. BSA: 1.49. NORMALS AORTA: AORTIC ROOT 2.2 2.0-3.7 cm LEFT ATRIUM 2.4 1.9-4.0 cm MITRAL VALVE: EXCURSION 1.8 1.9-2.7 cm EPSS 0.2 <0.5 cm LT VENTRICLE: LVID (ED) 3.5-5.7 cm LVID (ES) SEPTAL THICKNESS 0.6-1.1 cm SEPTAL EXCURSION 0.3-0.8 cm LVPW THICKNESS 0.6-1.1 cm LVPW EXCURSION 0.9-1.4 cm MINOR AXIS FS 25%-40% RT VENTRICLE: RVID (ED) 0.9-2.6 cm(up to 3cm if LLD) QUALITATIVE DOPPLER FLOW STUDIES MITRAL VALVE AORTIC VALVE AR, probably mild (1+). TRICUSPID VALVE PULMONIC VALVE QUANTITATIVE DOPPLER FLOW STUDIES SAMPLE SITES VELOCITIES PEAK PRESSURE VALVE AREA and/or VALVE WINDOW (PEAK,M/SEC) DROP (GRADIENT) PRESSURE HALF-TIME MV (Diastole) 1.1 MV (Systole) AO (Diastole) 3.5 AO (Systole) 2.0 TV (Systole) PV (Systole) 0.9 PV (Diastole) LWG:anna Job ID: [id number] Doc ID: [id number] Anuel Sotomayor MD
--- NOTE | 2017-01-21 14:49 | XRay Report ---
HISTORY: Reason for Exam:New development of left elbow pain FINDINGS: No fracture or dislocation are present. The joint spaces are normal in width and alignment. There is no joint effusion. There is a long slender spur along the posterior border of the olecranon where the Achilles tendon inserts. In the antecubital fossa there are vascular calcifications and a few surgical clips. There is nonspecific soft tissue swelling along the dorsal side of the proximal shaft of the ulna. No bone erosion is present. IMPRESSION: Soft tissue swelling and no fracture Interpreted and Authenticated by: Raghu Montgomery 01/21/17
--- NOTE | 2017-01-21 19:29 | Nephrology Progress Note ---
Subjective Patient information: Note initiated : 01/21/17 at 7:27 pm Service Date, if different from initiated Date: [] Patient: Debra Wolff 81 y/o F admitted on 01/18/17 for Fracture/Dislocation , Left Shoulder Fracture. Chief Complaint: Denies any pain. No shortness of breath. Principal diagnosis: S/P left cephalomedullary nailing Objective - Vital Signs Vital signs: Vital Signs Temp Pulse Resp BP BP Pulse Ox 01/21/17 16:30 98.7 F 64 16 147/62 100 01/21/17 16:23 66 01/21/17 12:18 98.2 F 65 14 115/31 99 01/21/17 11:47 63 01/21/17 07:54 70 01/21/17 07:51 98.4 F 70 16 148/39 98 01/21/17 07:50 67 16 98 01/21/17 05:29 122/76 01/21/17 04:15 70 175/64 01/21/17 04:00 99.1 F 70 16 197/57 98 01/20/17 23:54 97.9 F 110 H 16 144/75 99 01/20/17 20:00 107 H 01/20/17 19:54 97.3 F L 20 112/58 98 Intake and Output 01/21/17 01/21/17 01/21/17 05:59 13:59 21:59 Intake Total 300 / 300 250 / 250 240 / 240 Balance 300 / 300 250 / 250 240 / 240 Intake: IV 50 / 50 Dextrose 5% in Water 50 50 / 50 ml @ 100 mls/hr IV Q24H TERESA with Rocephin 2 gm Rx #:[id number] Oral 300 / 300 200 / 200 240 / 240 Other: Meal Breakfast Dinner Percent of Meal Consumed 50% 50% Feeding Ability Assist with Tray Set Up Assist with Tray Set Up Intake & Output: Intake & Output 01/21/17 01/21/17 01/21/17 05:59 13:59 21:59 Intake Total 300 / 300 250 / 250 240 / 240 Balance 300 / 300 250 / 250 240 / 240 Intake: IV 50 / 50 Dextrose 5% in Water 50 50 / 50 ml @ 100 mls/hr IV Q24H TERESA with Rocephin 2 gm Rx #:[id number] Oral 300 / 300 200 / 200 240 / 240 Other: Meal Breakfast Dinner Percent of Meal Consumed 50% 50% Feeding Ability Assist with Tray Set Up Assist with Tray Set Up - General Appearance General appearance: well-developed EENT: ATNC Neck: no JVD Respiratory: no kyphosis Cardiology: no murmurs Gastrointestinal: normoactive bowel sounds Integumentary: no rash Neurologic: no focal deficit - Lab 01/21/17 03:29 01/21/17 03:29 Most recent lab results Calcium 8.3 mg/dl (8.6-10.4) L 01/21/17 03:29 Phosphorus 3.0 mg/dL (2.7-4.5) 01/21/17 03:29 Magnesium 2.1 mg/dL (1.6-2.5) 01/21/17 03:29 Assessment and Plan (1) End stage renal disease on dialysis Electrolytes and volume status appear adequate. BP is better Status: Acute
[2017-01-21] MEDS: SENNOSIDES/DOCUSATE SODIUM 1 TAB TABLET PO SCH (21:07)
[2017-01-21] MEDS: ATORVASTATIN 20 MG TABLET PO SCH (21:09)
[2017-01-22] MEDS: HYDROmorphone 2 MG/ML SYRINGE IV PRN ×2 (00:46→07:42)
[2017-01-22 06:43] LABS: Mean Cell Volume 94.3 fL (80.0-100.0); Mean Corpuscular HGB Conc 32.9 g/dL (31.0-36.0); Platelet Count 199 K/mcL (140-440); RBC 2.84 M/mcL (4.00-5.20); Red Cell Distribution Width 15.3 % (11.5-14.5)
--- NOTE | 2017-01-22 07:20 | Orthopedic Progress Note ---
Subjective Patient information: Note initiated : 01/22/17 at 7:18 am Service Date, if different from initiated Date: [] Patient: Debra Wolff 81 y/o F admitted on 01/18/17 for Fracture/Dislocation , Left Shoulder Fracture. Chief Complaint: [] Principal diagnosis: S/P left cephalomedullary nailing Interval history: continues to improve. pain under control Objective Vital signs: Vital Signs Temp Pulse Resp BP BP Pulse Ox 01/22/17 04:56 98.9 F 20 129/41 99 01/22/17 00:47 98.5 F 22 160/46 100 01/21/17 21:00 100.0 F H 100 H 16 130/65 100 01/21/17 20:00 100 H 01/21/17 16:30 98.7 F 64 16 147/62 100 01/21/17 16:23 66 01/21/17 12:18 98.2 F 65 14 115/31 99 01/21/17 11:47 63 01/21/17 07:54 70 01/21/17 07:51 98.4 F 70 16 148/39 98 01/21/17 07:50 67 16 98 Intake and Output 01/21/17 01/22/17 01/22/17 21:59 05:59 13:59 Intake Total 240 / 240 150 / 150 Balance 240 / 240 150 / 150 Intake: Oral 240 / 240 150 / 150 Other: Meal Dinner Percent of Meal Consumed 50% Feeding Ability Assist with Tray Set Up Weight 115 lb Intake & Output: Intake & Output 01/21/17 01/22/17 01/22/17 21:59 05:59 13:59 Intake Total 240 / 240 150 / 150 Balance 240 / 240 150 / 150 Weight 115 lb Intake: Oral 240 / 240 150 / 150 Other: Meal Dinner Percent of Meal Consumed 50% Feeding Ability Assist with Tray Set Up Incision: Yes healing, Yes clean and dry Incision clean and dry: Yes Dressing: Yes clean, Yes dry, Yes intact Weight bearing status: non Neurological exam IM: Yes alert, Yes oriented X3, Yes motor sensory intact, Yes neurovascular intact Extremities exam IM: Yes Foot pink and warm, Yes neurovascular intact - Labs CBC & BMP: 01/22/17 04:40 01/21/17 03:29 Labs: 01/22/17 01/21/17 01/20/17 04:40 03:29 03:25 Hgb 8.8 L 9.2 L 8.8 L Hct 26.8 L 27.4 L 26.7 L 01/19/17 05:35 Hgb 11.8 L Hct 35.6 L Assessment and Plan (1) Closed left hip fracture pod 3 s/p left hip gamma nail. left proximal humerus fracture non-operative treatment NWB LUE, NWB LLE but ok to stand and pivot for transfers ok to come out of the sling for rom of the elbow, wrist, fingers take of mckayla wrap over arm at least once per day to allow skin to breath ok for rehab when ok per medicine f/u in office in 10-14 days. Status: Acute Qualifiers: Encounter type: subsequent encounter Fracture healing: with routine healing Qualified Code(s): S72.002D - Fracture of unspecified part of neck of left femur, subsequent encounter for closed fracture with routine healing
[2017-01-22 07:26] LABS: ALT/SGPT 27 U/l (0-40); Albumin 2.6 gm/dL (3.2-5.2); Albumin/Globulin Ratio 0.9 (1.0-2.3); Alkaline Phosphatase 99 U/L (39-117); Bilirubin,Direct < 0.2 mg/dL (0.0-0.3); Blood Urea Nitrogen 24 mg/dl (8-23); Gamma Glutamyl Transpeptidase 43 U/L (5-36); Magnesium 2.1 mg/dL (1.6-2.5); Phosphorous 2.9 mg/dL (2.7-4.5); Uric Acid 3.5 mg/dL (2.5-8.0)
[2017-01-22] MEDS: PANTOPRAZOLE 40 MG VIAL IV SCH (07:26)
[2017-01-22] MEDS: 0.9 % SODIUM CHLORIDE 10 ML SYRINGE IV SCH ×4 (07:26→21:33)
[2017-01-22] MEDS: LEVOTHYROXINE 100 MCG TABLET PO SCH (07:42)
[2017-01-22 08:13] LABS: Band Neutrophils % 1 % (0-10); Basophils % (Manual) 1 % (0-2); Eosinophils % (Manual) 2 % (0-7); Lymphocytes % 17 % (15-49); Monocytes % (Manual) 10 % (1-9); Platelet Estimate NORMAL (NORMAL); RBC Morphology NORMAL (NORMAL); Segmented Neutrophils % 69 % (38-78)
[2017-01-22] MEDS: SEVELAMER 800 MG TABLET PO SCH ×3 (09:29→18:07)
[2017-01-22] MEDS: NADOLOL 40 MG TABLET PO SCH ×2 (09:30→21:29)
[2017-01-22] MEDS: TORSEMIDE 10 MG TABLET PO SCH (09:30)
[2017-01-22] MEDS: cloNIDine HCL 0.1 MG TABLET PO SCH ×3 (09:30→21:29)
[2017-01-22] MEDS: DOCUSATE SODIUM 100 MG CAPSULE PO SCH ×2 (09:30→21:28)
[2017-01-22] MEDS: ASPIRIN 81 MG TAB.CHEW PO SCH (09:30)
[2017-01-22] MEDS: MINOXIDIL 2.5 MG TABLET PO SCH ×2 (09:31→21:29)
[2017-01-22] MEDS: HEPARIN 5,000 UNIT/ML VIAL SQ SCH ×2 (09:31→21:26)
[2017-01-22] MEDS: SERTRALINE 50 MG TABLET PO SCH (09:32)
[2017-01-22] MEDS: LISINOPRIL 20 MG TABLET PO SCH ×2 (09:32→21:28)
[2017-01-22] MEDS: CLOPIDOGREL 75 MG TABLET PO SCH (09:32)
[2017-01-22] MEDS: cefTRIAXone 2 GM in DEXTROSE 5% IN WATER 50 ML IV SCH (09:57)
--- NOTE | 2017-01-22 13:17 | Internal Med Progress Note ---
Medical - PN: Subj Patient information: Note initiated : 01/22/17 at 1:15 pm Service Date, if different from initiated Date: [] Patient: Debra Wolff 81 y/o F admitted on 01/18/17 for Fracture/Dislocation , Left Shoulder Fracture. Chief Complaint: [] Interval history: 01/18-patient admitted after a fall with Lt humerus and left femur fracture, pelvis fracture. History of ESRD on HD management nephrology. Await orthopedics intervention. Review postop. 01/19-patient seen in room. anesthesia concerned about Intra-Op EKG changes including ST depression. Serial troponin uptrending from 0.06-0.15 likely secondary to anesthesia induced demand ischemia. however patient clearly is asymptomatic without any pain diaphoresis dizziness or unstable hemodynamics. Continue serial trending. patient already on aspirin and Plavix and statin. Patient will require outpatient cardiac stress testing. Extensive peripheral vascular disease as evident on abdominal imaging. hemodialysis ongoing. Postoperative care as per orthopedics along with aggressive rehabilitation. EKG no significant change. ADDENDUM 01/19- 18:00 - case discussed with Dr Conti clinic clerk at [facility] as [place] did not have tele beds. Auto Radio Mechanic recommended medical management as 16 Hrs out troponin level 0.28 is quite reassuring for a minor ischemic event likely precipitated by surgery/ stress. He recommended ASA/ plavix to continue along with statin and a B Natalie. Also Echo and OP nuke stress test on discharge. 01/20- troponin at 0.27 at 24 hours with a peak of 0.28. No chest pain. On aspirin and Plavix/statin. Scheduled outpatient nuclear studies on discharge. Recovering well from hip surgery. No significant postoperative pain. Patient expresses concern about left shoulder fracture and nonoperative management and wanted a second opinion from orthopedics. I subsequently discussed case with Dr. Levi Wilson would see the patient and review images for further advice. I then informed patient about discussion with Dr. Wilson. Patient had hemodialysis yesterday. Managed by nephrology. No overnight fever chills or other concerns per staff. No telemetry events. 01/21- Patient complaining of left elbow pain. No overnight events. paroxysmal A. fib rate controlled and intermittently in sinus. Hemodialysis yesterday. patient's chads score is over 2 mandating anticoagulation on Coumadin however being on aspirin and Plavix patient will be a high risk bleeding. at this time will continue an aspirin Plavix/beta natalie and have patient follow outpatient cardiology/nuclear stress test on discharge. orthopedics recommends discharging in 24 hours. no overnight fever chills nausea vomiting. Telemetry paroxysmal A. fib. white count down to 11.8 from 14.2. Afebrile. 01/22 Patient reports pain control is not adequate, she still is in significant pain, labs reviewed shows Sodium dropped to 124, from 136, no changes in mental status. The patient is also drinking a lot of water as per her. Discussed with her that the low sodium could be from pain vs excess water consumption in [facility]. Pt will be placed on free water restriction of 1500ml, started on po oxycodone in addition to dilaudid for pain control. Overnight intermittent in AFib, but no RVR, monitor, to be followed up by cardiology as outpatient. Pt was also on rocephin for unknow reason, I spoke with Dr Hassan who noted no indication for IV antibiotics, I could not find any need for rocephin based on chart review. no h/o infection in ER notes in [facility]. Will stop same. Pertinent ROS: Denies headache, dizziness Denies chest pain, palpitations Denies cough or shortness of breath Denies abdominal pain, nausea or vomiting. - Constitutional Vitals: Vital Signs Temp Pulse Resp BP Pulse Ox 96.7 F L 60 20 114/56 100 01/22/17 11:42 01/22/17 08:00 01/22/17 11:42 01/22/17 11:42 01/22/17 11:42 Period Temp Pulse Resp BP Sys/Spence Pulse Ox Last 24 Hr 96.7 F-100.0 F 60-100 16-22 114-160/41-65 99-100 Intake and Output 01/21/17 01/22/17 01/22/17 21:59 05:59 13:59 Intake Total 240 / 240 150 / 150 240 / 240 Balance 240 / 240 150 / 150 240 / 240 Weight 115 lb Intake & Output: Intake & Output 01/21/17 01/22/17 01/22/17 21:59 05:59 13:59 Intake Total 240 / 240 150 / 150 240 / 240 Balance 240 / 240 150 / 150 240 / 240 Weight 115 lb Intake: Oral 240 / 240 150 / 150 240 / 240 Other: Meal Dinner Breakfast Percent of Meal Consumed 50% 50% Feeding Ability Assist with Tray Set Up Assist with Tray Set Up Exam: Constitutional; Afebrile, cooperative, alert, not in distress. Eyes- No icterus, Pupils equal, reactive, No periorbital swelling Ears- Ext ear normal, hearing normal to conversation. Neck- Midline trachea, supple Respiratory system: Air Entry equal on both sides, No crackles or wheezing, no rhonchi. CVS- Rate rhythm regular, S1,S2 heard, no gallop, no rub. Abdomen- Soft nontender abdomen, no organomegaly, no tenderness, no guarding or rigidity, VESSEL OPERATOR- AOOx3, exam grossly non focal. limited due to fractures. Medical - PN: Obj Da - Labs CBC & Chem 7: 01/22/17 04:40 01/22/17 04:40 Labs: Abnormal Lab Results 01/22/17 01/22/17 01/21/17 04:40 04:40 03:29 WBC 11.9 H RBC 2.84 L Hgb 8.8 L Hct 26.8 L RDW 15.3 H Monocytes % (Manual) 10 H WBC Morphology Vacuolated Neuts Toxic Granulation RBC Morphology Anisocytosis RBC Fragments Sodium 124 L Chloride 85 L 95 L BUN 24 H Creatinine 4.4 H 3.0 H Glucose 157 H 117 H Uric Acid 2.2 L Calcium 8.0 L 8.3 L GGT 43 H 55 H AST Alkaline Phosphatase 122 H Lactate Dehydrogenase 296 H 312 H Total Creatine Kinase CK-MB (CK-2) Troponin T Total Protein 5.6 L Albumin 2.6 L 3.1 L Albumin/Globulin Ratio 0.9 L Triglycerides 193 H 170 H 01/21/17 01/20/17 01/20/17 03:29 10:20 03:25 WBC 11.8 H RBC 2.89 L Hgb 9.2 L Hct 27.4 L RDW 15.4 H Monocytes % (Manual) WBC Morphology Abnorm A Vacuolated Neuts 1+ A Toxic Granulation 1+ A RBC Morphology Abnorm A Anisocytosis 1+ A RBC Fragments Sodium 130 L Chloride 90 L BUN Creatinine 3.6 H Glucose 183 H Uric Acid Calcium 8.3 L GGT 58 H AST 40 H Alkaline Phosphatase 131 H Lactate Dehydrogenase 330 H Total Creatine Kinase CK-MB (CK-2) Troponin T 0.27 H* Total Protein Albumin 3.1 L Albumin/Globulin Ratio Triglycerides 155 H 01/20/17 01/19/17 01/19/17 03:25 14:19 14:19 WBC 14.2 H RBC 2.82 L Hgb 8.8 L Hct 26.7 L RDW 15.6 H Monocytes % (Manual) WBC Morphology Abnorm A Vacuolated Neuts Toxic Granulation 1+ A RBC Morphology Abnorm A Anisocytosis 1+ A RBC Fragments Occ A Sodium Chloride BUN Creatinine Glucose Uric Acid Calcium GGT AST Alkaline Phosphatase Lactate Dehydrogenase Total Creatine Kinase 384 H CK-MB (CK-2) 10.5 H Troponin T 0.28 H* Total Protein Albumin Albumin/Globulin Ratio Triglycerides Meds: Medications Acetaminophen (Tylenol) 650 mg PO Q4-6HP PRN PRN Reason: PAIN/FEVER > 101 Last Admin: 01/19/17 22:16 Dose: 650 mg Aspirin (Aspirin) 81 mg PO DAILY [facility] Last Admin: 01/22/17 09:30 Dose: 81 mg Atorvastatin Calcium (Lipitor) 80 mg PO HS [facility] Last Admin: 01/21/17 21:09 Dose: 80 mg Bisacodyl (Dulcolax) 10 mg HI Q2-3DAYS PRN PRN Reason: Constipation Calcium Carbonate/Glycine (Tums) 500 mg CHEWED Q4HP PRN PRN Reason: Dyspepsia Clonidine HCl (Catapres) 0.2 mg PO TID [facility] Last Admin: 01/22/17 09:30 Dose: 0.2 mg Clonidine HCl (Catapres) 0.1 mg PO Q4HP PRN PRN Reason: Hypertension Clopidogrel Bisulfate (Plavix) 75 mg PO DAILY [facility] Last Admin: 01/22/17 09:32 Dose: 75 mg Docusate Sodium (Colace) 100 mg PO BID [facility] Last Admin: 01/22/17 09:30 Dose: 100 mg Heparin Sodium (Porcine) (Heparin) 5,000 unit SQ Q12 [facility] Last Admin: 01/22/17 09:31 Dose: 5,000 unit Hydralazine HCl (Apresoline) 10 mg IV Q4-6HP PRN PRN Reason: Hypertension Last Admin: 01/21/17 03:54 Dose: 10 mg Hydromorphone HCl (Dilaudid) 0 mg IV Q4HP PRN PRN Reason: Pain Last Admin: 01/22/17 07:42 Dose: 0.25 mg Acetaminophen (Ofirmev) 1,000 mg in 100 mls @ 200 mls/hr IV Q6HP PRN PRN Reason: PAIN/FEVER > 101 Ceftriaxone Sodium 2 gm/ (Dextrose) 50 mls @ 100 mls/hr IV Q24H [facility] Last Admin: 01/22/17 09:57 Dose: 100 mls/hr [facility]othyroxine [facility] (Synthroid) [facility] Last Admin: 01/22/17 07:42 Dose: 100 mcg Lisinopril (Zestril) 20 mg PO BID [facility] Last Admin: 01/22/17 09:32 Dose: 20 mg Minoxidil (Minoxidil) 2.5 mg PO BID [facility] Last Admin: 01/22/17 09:31 Dose: 2.5 mg Nadolol (Corgard) 80 mg PO BID [facility] Last Admin: 01/22/17 09:30 Dose: 80 mg Ondansetron HCl (Zofran) 4 mg IV Q4-6HP PRN PRN Reason: Nausea And Vomiting Oxycodone HCl (Roxicodone) 5 mg PO Q4HP PRN PRN Reason: Pain Pantoprazole Sodium (Protonix) [facility] Last Admin: 01/22/17 07:26 Dose: 40 mg Senna/Docusate Sodium (Senna Plus Tablet) 1 tab PO HS [facility] Last Admin: 01/21/17 21:07 Dose: 1 tab Sertraline HCl (Zoloft) 75 mg PO DAILY [facility] Last Admin: 01/22/17 09:32 Dose: 75 mg Sevelamer Carbonate (Renvela) 1,600 mg PO TIDCC [facility] Last Admin: 01/22/17 09:29 Dose: 1,600 mg Sodium Chloride (Saline Flush) 10 ml IV Q8 [facility] Last Admin: 01/22/17 07:45 Dose: 10 ml Torsemide (Demadex) 100 mg PO DAILY [facility] Last Admin: 01/22/17 09:30 Dose: 100 mg Medical - PN: A/P - Time Spent With Patient Total time spent is greater than 50% in coordination of care (as documented) at patient's floor/unit and/or counseling patient: (1) Hyponatremia Status: Acute Current Visit: Yes (2) Shoulder fracture, left Status: Acute Current Visit: Yes (3) Hypertension Status: Acute Current Visit: Yes (4) Pain, postoperative, acute Status: Acute Current Visit: Yes (5) Closed left hip fracture Status: Acute Current Visit: Yes (6) End stage renal disease on dialysis Status: Acute Current Visit: Yes (7) Atrial fib/flutter, transient Status: Acute Current Visit: Yes (8) Non-ST elevation myocardial infarction (NSTEMI), type 2 Status: Acute Current Visit: Yes - Narrative A/P Narrative: Patient with low sodium, likely due to inadequate pain management as well as excess free water intake Restrict free water to 1500ml / day, Increase pain medication, start on oxycodone Recheck sodium later continue to monitor on telemetery. continue dialysis as per nephrology, on TTS schedule. D/C rocephin BP stable, continue home medications. continue to monitor for now, Anticipate D/C to snf in AM. Medical - PN: Qual - VTE Deep Vein Thrombosis/Pulmonary Embolism Present on Admission: No
[2017-01-22 14:22] LABS: Blood Urea Nitrogen 30 mg/dl (8-23)
--- NOTE | 2017-01-22 17:03 | Nephrology Progress Note ---
Subjective Patient information: Note initiated : 01/22/17 at 4:55 pm Service Date, if different from initiated Date: [] Patient: Debra Wolff 81 y/o F admitted on 01/18/17 for Fracture/Dislocation , Left Shoulder Fracture. Chief Complaint: Some pain in the hip. No shortness of breath. Overall feels well. Principal diagnosis: S/P left cephalomedullary nailing Objective - Vital Signs Vital signs: Vital Signs Temp Pulse Resp BP BP Pulse Ox 01/22/17 16:00 97.9 F 20 105/49 98 01/22/17 11:42 96.7 F L 20 114/56 100 01/22/17 08:00 60 01/22/17 04:56 98.9 F 20 129/41 99 01/22/17 00:47 98.5 F 22 160/46 100 01/21/17 21:00 100.0 F H 100 H 16 130/65 100 01/21/17 20:00 100 H Intake and Output 01/22/17 01/22/17 01/22/17 05:59 13:59 21:59 Intake Total 150 / 150 240 / 240 Output Total 0 / 0 Balance 150 / 150 240 / 240 0 / 0 Intake: Oral 150 / 150 240 / 240 Output: Void Amount 0 / 0 Other: Meal Breakfast Percent of Meal Consumed 50% Feeding Ability Assist with Tray Set Up # Bowel Movements 0 Intake & Output: Intake & Output 01/22/17 01/22/17 01/22/17 05:59 13:59 21:59 Intake Total 150 / 150 240 / 240 Output Total 0 / 0 Balance 150 / 150 240 / 240 0 / 0 Intake: Oral 150 / 150 240 / 240 Output: Void Amount 0 / 0 Other: Meal Breakfast Percent of Meal Consumed 50% Feeding Ability Assist with Tray Set Up # Bowel Movements 0 - General Appearance General appearance: well-developed EENT: ATNC Neck: no JVD Respiratory: no kyphosis Cardiology: no murmurs Gastrointestinal: normoactive bowel sounds Integumentary: no rash Neurologic: no focal deficit Musculoskeletal: no deformities - Lab 01/22/17 04:40 01/22/17 13:25 Most recent lab results Calcium 7.9 mg/dl (8.6-10.4) L 01/22/17 13:25 Phosphorus 2.9 mg/dL (2.7-4.5) 01/22/17 04:40 Magnesium 2.1 mg/dL (1.6-2.5) 01/22/17 04:40 Assessment and Plan (1) End stage renal disease on dialysis Volume status appear adequate. BP is adequate. Hyponatremia. Restrict free water. Dialysis will fix it. Status: Acute
[2017-01-22] MEDS ORDERED: PAMIDRONATE 90 MG in 0.9 % SODIUM CHLORIDE 500 ML IV ONE (18:00)
[2017-01-22] MEDS: SENNOSIDES/DOCUSATE SODIUM 1 TAB TABLET PO SCH (21:28)
[2017-01-22] MEDS: ATORVASTATIN 20 MG TABLET PO SCH (21:32)
[2017-01-22 22:36] LABS: Blood Urea Nitrogen 32 mg/dl (8-23)
[2017-01-22] MEDS: oxyCODONE HCL 5 MG TABLET PO PRN (23:07)
[2017-01-22] MEDS ORDERED: SODIUM CHLORIDE 3 % 50 ML IV SCH ×2 (23:15)
--- NOTE | 2017-01-22 23:23 | Event Note ---
subacute hyponatremia, Na 120 presently was 124 this AM and 136 yesterday AM. Case was discussed with nephrology, advised fluid restriction, which was done. Pt Na stil dropped from 124 to 120. Plan to give 50cc of Hypertonic saline one time now, and recheck bmp with AM labs which is in 4 from the adminstration of sodium Pt will have tsh, cortisol level checked in AM. Low Na likely due to pain (appropriate ADH Secretion) Vs excess intake of free water. Will have HD tomorrow, monitor closely for now, pt on tele.
[2017-01-23] MEDS: oxyCODONE HCL 5 MG TABLET PO PRN ×5 (03:16→20:14)
[2017-01-23 05:32] LABS: Mean Cell Volume 93.6 fL (80.0-100.0); Mean Corpuscular Hemoglobin 30.9 pg (26.0-34.0); Platelet Count 176 K/mcL (140-440); Red Cell Distribution Width 15.2 % (11.5-14.5)
[2017-01-23] MEDS: 0.9 % SODIUM CHLORIDE 10 ML SYRINGE IV SCH ×3 (06:04→20:32)
[2017-01-23 06:16] LABS: ALT/SGPT 24 U/l (0-40); Albumin 2.5 gm/dL (3.2-5.2); Albumin/Globulin Ratio 0.8 (1.0-2.3); Alkaline Phosphatase 91 U/L (39-117); Bilirubin,Direct < 0.2 mg/dL (0.0-0.3); Blood Urea Nitrogen 33 mg/dl (8-23); Gamma Glutamyl Transpeptidase 35 U/L (5-36); Phosphorous 3.8 mg/dL (2.7-4.5); Uric Acid 4.3 mg/dL (2.5-8.0)
[2017-01-23] MEDS: HYDROmorphone 2 MG/ML SYRINGE IV PRN (06:33)
[2017-01-23] MEDS ORDERED: SODIUM CHLORIDE 3 % 50 ML IV ONE (07:15)
[2017-01-23 07:36] LABS: Anisocytosis 1+ (NONE SEEN); Band Neutrophils % 1 % (0-10); Eosinophils % (Manual) 3 % (0-7); Lymphocytes % 5 % (15-49); Monocytes % (Manual) 8 % (1-9); Platelet Estimate NORMAL (NORMAL); RBC Morphology ABNORM (NORMAL); Segmented Neutrophils % 83 % (38-78)
[2017-01-23] MEDS ORDERED: 0.9 % SODIUM CHLORIDE 250 ML IV SCH ×2 (09:00)
[2017-01-23] MEDS: PANTOPRAZOLE 40 MG VIAL IV SCH (09:50)
[2017-01-23] MEDS: SEVELAMER 800 MG TABLET PO SCH ×3 (10:10→18:02)
--- NOTE | 2017-01-23 12:42 | Nephrology Progress Note ---
Subjective Patient information: Note initiated : 01/23/17 at 12:38 pm Service Date, if different from initiated Date: [] Patient: Debra Wolff 81 y/o F admitted on 01/18/17 for Fracture/Dislocation , Left Shoulder Fracture. Chief Complaint: Confused. Better at dialysis. BP is going up. Principal diagnosis: S/P left cephalomedullary nailing Objective - Vital Signs Vital signs: Vital Signs Temp Pulse Pulse Resp BP BP BP 01/23/17 12:31 94 H 187/61 01/23/17 12:01 81 176/52 01/23/17 12:00 97.8 F 20 176/92 01/23/17 11:30 77 157/65 01/23/17 11:01 81 159/54 01/23/17 10:36 96.3 F L 61 151/53 01/23/17 08:00 98.4 F 94 H 21 160/87 01/23/17 04:00 97.7 F 20 134/52 01/23/17 00:00 98.3 F 20 135/49 01/22/17 19:31 98.3 F 20 108/52 01/22/17 19:00 60 01/22/17 16:00 97.9 F 20 105/49 Pulse Ox 01/23/17 12:31 01/23/17 12:01 01/23/17 12:00 94 01/23/17 11:30 01/23/17 11:01 01/23/17 10:36 01/23/17 08:00 95 01/23/17 04:00 97 01/23/17 00:00 97 01/22/17 19:31 99 01/22/17 19:00 95 01/22/17 16:00 98 Intake and Output 01/22/17 01/23/17 01/23/17 21:59 05:59 13:59 Intake Total 400 / 400 880 / 880 Output Total 6348 / 6348 Balance 399 / 399 880 / 880 -6348 / -6348 Intake: IV 580 / 580 Sodium Chloride 0.9% 500 530 / 530 ml @ 88.333 mls/hr IV ONCE ONE with Aredia 90 mg Rx#:[id number] Sodium Chloride 3% 50 ml 50 / 50 @ 50 mls/hr IV ONCE TERESA Rx#:[id number] Oral 400 / 400 300 / 300 Output: Void Amount 0 / 0 250 / 250 # of times incontinent of 1 / 1 urine Hemodialysis UF 6098 / 6098 Other: # Bowel Movements 0 0 Weight 123 lb Intake & Output: Intake & Output 01/22/17 01/23/17 01/23/17 21:59 05:59 13:59 Intake Total 400 / 400 880 / 880 Output Total 6348 / 6348 Balance 399 / 399 880 / 880 -6348 / -6348 Weight 123 lb Intake: IV 580 / 580 Sodium Chloride 0.9% 500 530 / 530 ml @ 88.333 mls/hr IV ONCE ONE with Aredia 90 mg Rx#:[id number] Sodium Chloride 3% 50 ml 50 / 50 @ 50 mls/hr IV ONCE TERESA Rx#:[id number] Oral 400 / 400 300 / 300 Output: Void Amount 0 / 0 250 / 250 # of times incontinent of 1 / 1 urine Hemodialysis UF 6098 / 6098 Other: # Bowel Movements 0 0 - General Appearance General appearance: appears started age EENT: ATNC Neck: no JVD Respiratory: no kyphosis Cardiology: no murmurs Gastrointestinal: normoactive bowel sounds Integumentary: no rash Neurologic: no focal deficit - Lab 01/23/17 04:19 01/23/17 04:19 Most recent lab results Calcium 8.0 mg/dl (8.6-10.4) L 01/23/17 04:19 Phosphorus 3.8 mg/dL (2.7-4.5) 01/23/17 04:19 Magnesium 2.0 mg/dL (1.6-2.5) 01/23/17 04:19 Assessment and Plan (1) End stage renal disease on dialysis ESRD on dialysis now. Doing well. Volume status appear adequate. BP getting high on dialysis. She will get more clonidine. Hyponatremia. Restrict free water. Being dialysed. Change in mental status. Related to narcotics. Will get a head ct because of recent fall. Status: Acute
[2017-01-23] MEDS: cloNIDine HCL 0.1 MG TABLET PO PRN (12:54)
--- NOTE | 2017-01-23 13:07 | Internal Med Progress Note ---
Medical - PN: Subj Patient information: Note initiated : 01/23/17 at 1:05 pm Service Date, if different from initiated Date: [] Patient: Debra Wolff 81 y/o F admitted on 01/18/17 for Fracture/Dislocation , Left Shoulder Fracture. Chief Complaint: [] Interval history: 01/18-patient admitted after a fall with Lt humerus and left femur fracture, pelvis fracture. History of ESRD on HD management nephrology. Await orthopedics intervention. Review postop. 01/19-patient seen in room. anesthesia concerned about Intra-Op EKG changes including ST depression. Serial troponin uptrending from 0.06-0.15 likely secondary to anesthesia induced demand ischemia. however patient clearly is asymptomatic without any pain diaphoresis dizziness or unstable hemodynamics. Continue serial trending. patient already on aspirin and Plavix and statin. Patient will require outpatient cardiac stress testing. Extensive peripheral vascular disease as evident on abdominal imaging. hemodialysis ongoing. Postoperative care as per orthopedics along with aggressive rehabilitation. EKG no significant change. ADDENDUM 01/19- 18:00 - case discussed with Dr Conti story analyst at [facility] as [place] did not have tele beds. Academic Advising Director recommended medical management as 16 Hrs out troponin level 0.28 is quite reassuring for a minor ischemic event likely precipitated by surgery/ stress. He recommended ASA/ plavix to continue along with statin and a B Natalie. Also Echo and OP nuke stress test on discharge. 01/20- troponin at 0.27 at 24 hours with a peak of 0.28. No chest pain. On aspirin and Plavix/statin. Scheduled outpatient nuclear studies on discharge. Recovering well from hip surgery. No significant postoperative pain. Patient expresses concern about left shoulder fracture and nonoperative management and wanted a second opinion from orthopedics. I subsequently discussed case with Dr. Levi Wilson would see the patient and review images for further advice. I then informed patient about discussion with Dr. Wilson. Patient had hemodialysis yesterday. Managed by nephrology. No overnight fever chills or other concerns per staff. No telemetry events. 01/21- Patient complaining of left elbow pain. No overnight events. paroxysmal A. fib rate controlled and intermittently in sinus. Hemodialysis yesterday. patient's chads score is over 2 mandating anticoagulation on Coumadin however being on aspirin and Plavix patient will be a high risk bleeding. at this time will continue an aspirin Plavix/beta natalie and have patient follow outpatient cardiology/nuclear stress test on discharge. orthopedics recommends discharging in 24 hours. no overnight fever chills nausea vomiting. Telemetry paroxysmal A. fib. white count down to 11.8 from 14.2. Afebrile. 01/22 Patient reports pain control is not adequate, she still is in significant pain, labs reviewed shows Sodium dropped to 124, from 136, no changes in mental status. The patient is also drinking a lot of water as per her. Discussed with her that the low sodium could be from pain vs excess water consumption in [facility]. Pt will be placed on free water restriction of 1500ml, started on po oxycodone in addition to dilaudid for pain control. Overnight intermittent in AFib, but no RVR, monitor, to be followed up by cardiology as outpatient. Pt was also on rocephin for unknow reason, I spoke with Dr Hassan who noted no indication for IV antibiotics, I could not find any need for rocephin based on chart review. no h/o infection in ER notes in [facility]. Will stop same. 01/23 pt seen examined, overnight events noted, pt was hyponatremic last night needing hypertonic saline x 1, her na this AM was better, but she was confused so was monitored on tele. 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 Pertinent ROS: Denies headache, dizziness Denies chest pain, palpitations Denies cough or shortness of breath Denies abdominal pain, nausea or vomiting. - Constitutional Vitals: Vital Signs Temp Pulse Resp BP Pulse Ox 97.8 F 60 20 165/63 94 01/23/17 12:00 01/23/17 13:02 01/23/17 12:00 01/23/17 13:02 01/23/17 12:00 Period Temp Pulse Resp BP Sys/Spence Pulse Ox Last 24 Hr 96.3 F-98.4 F 60-94 20-21 105-187/49-92 94-99 Intake and Output 01/22/17 01/23/17 01/23/17 21:59 05:59 13:59 Intake Total 400 / 400 880 / 880 Output Total 9092 / 9092 Balance 399 / 399 880 / 880 -9092 / -9092 Weight 123 lb Intake & Output: Intake & Output 01/22/17 01/23/17 01/23/17 21:59 05:59 13:59 Intake Total 400 / 400 880 / 880 Output Total 9092 / 9092 Balance 399 / 399 880 / 880 -9092 / -9092 Weight 123 lb Intake: IV 580 / 580 Sodium Chloride 0.9% 500 530 / 530 ml @ 88.333 mls/hr IV ONCE ONE with Aredia 90 mg Rx#:[id number] Sodium Chloride 3% 50 ml 50 / 50 @ 50 mls/hr IV ONCE TERESA Rx#:[id number] Oral 400 / 400 300 / 300 Output: Void Amount 0 / 0 250 / 250 # of times incontinent of urine Hemodialysis UF 8842 / 8842 Other: # Bowel Movements 0 0 Exam: Constitutional; Afebrile, cooperative, alert, not in distress. Eyes- No icterus, Pupils equal, reactive, No periorbital swelling Ears- Ext ear normal, hearing normal to conversation. Neck- Midline trachea, supple Respiratory system: Air Entry equal on both sides, No crackles or wheezing, no rhonchi. CVS- Rate rhythm regular, S1,S2 heard, no gallop, no rub. Abdomen- Soft nontender abdomen, no organomegaly, no tenderness, no guarding or rigidity, DATABASE MARKETING ANALYST- AOOx2, moving all extremities, no focal deficit noted. Medical - PN: Obj Da - Labs CBC & Chem 7: 01/23/17 04:19 01/23/17 04:19 Labs: Abnormal Lab Results 01/23/17 01/23/17 01/22/17 04:19 04:19 21:30 WBC 11.1 H RBC 2.50 L Hgb 7.7 L Hct 23.4 L RDW 15.2 H Seg Neutrophils % 83 H Lymphocytes % 5 L Monocytes % (Manual) WBC Morphology Abnorm A Vacuolated Neuts 1+ A Toxic Granulation RBC Morphology Abnorm A Polychromasia Few A Anisocytosis 1+ A Sodium 123 L 120 L Potassium 3.2 L Chloride 84 L 82 L Anion Gap 17.0 H BUN 33 H 32 H Creatinine 5.0 H 4.8 H Glucose 139 H 156 H Uric Acid Calcium 8.0 L 7.7 L GGT Alkaline Phosphatase Lactate Dehydrogenase 256 H Total Protein 5.5 L Albumin 2.5 L Albumin/Globulin Ratio 0.8 L Triglycerides 179 H 01/22/17 01/22/17 01/22/17 13:25 04:40 04:40 WBC 11.9 H RBC 2.84 L Hgb 8.8 L Hct 26.8 L RDW 15.3 H Seg Neutrophils % Lymphocytes % Monocytes % (Manual) 10 H WBC Morphology Vacuolated Neuts Toxic Granulation RBC Morphology Polychromasia Anisocytosis Sodium 122 L 124 L Potassium Chloride 82 L 85 L Anion Gap BUN 30 H 24 H Creatinine 4.7 H 4.4 H Glucose 154 H 157 H Uric Acid Calcium 7.9 L 8.0 L GGT 43 H Alkaline Phosphatase Lactate Dehydrogenase 296 H Total Protein 5.6 L Albumin 2.6 L Albumin/Globulin Ratio 0.9 L Triglycerides 193 H 01/21/17 01/21/17 03:29 03:29 WBC 11.8 H RBC 2.89 L Hgb 9.2 L Hct 27.4 L RDW 15.4 H Seg Neutrophils % Lymphocytes % Monocytes % (Manual) WBC Morphology Abnorm A Vacuolated Neuts 1+ A Toxic Granulation 1+ A RBC Morphology Abnorm A Polychromasia Anisocytosis 1+ A Sodium Potassium Chloride 95 L Anion Gap BUN Creatinine 3.0 H Glucose 117 H Uric Acid 2.2 L Calcium 8.3 L GGT 55 H Alkaline Phosphatase 122 H Lactate Dehydrogenase 312 H Total Protein Albumin 3.1 L Albumin/Globulin Ratio Triglycerides 170 H Meds: Medications Acetaminophen (Tylenol) 650 mg PO Q4-6HP PRN PRN Reason: PAIN/FEVER > 101 Last Admin: 01/19/17 22:16 Dose: 650 mg Aspirin (Aspirin) 81 mg PO DAILY PENDING SALE TO [facility] Last Admin: 01/22/17 09:30 Dose: 81 mg Atorvastatin Calcium (Lipitor) 80 mg PO HS PENDING SALE TO [facility] Last Admin: 01/22/17 21:32 Dose: 80 mg Bisacodyl (Dulcolax) 10 mg OH Q2-3DAYS PRN PRN Reason: Constipation Calcium Carbonate/Glycine (Tums) 500 mg CHEWED Q4HP PRN PRN Reason: Dyspepsia Clonidine HCl (Catapres) 0.2 mg PO TID PENDING SALE TO [facility] Last Admin: 01/22/17 21:29 Dose: 0.2 mg Clonidine HCl (Catapres) 0.1 mg PO Q4HP PRN PRN Reason: Hypertension Last Admin: 01/23/17 12:54 Dose: 0.1 mg Clopidogrel Bisulfate (Plavix) 75 mg PO DAILY PENDING SALE TO [facility] Last Admin: 01/22/17 09:32 Dose: 75 mg Docusate Sodium (Colace) 100 mg PO BID PENDING SALE TO [facility] Last Admin: 01/22/17 21:28 Dose: 100 mg Heparin Sodium (Porcine) (Heparin) 5,000 unit SQ Q12 PENDING SALE TO [facility] Last Admin: 01/22/17 21:26 Dose: 5,000 unit Hydralazine HCl (Apresoline) 10 mg IV Q4-6HP PRN PRN Reason: Hypertension Last Admin: 01/21/17 03:54 Dose: 10 mg Hydromorphone HCl (Dilaudid) 0 mg IV Q4HP PRN PRN Reason: Pain Last Admin: 01/23/17 06:33 Dose: 0.25 mg Acetaminophen (Ofirmev) 1,000 mg in 100 mls @ 200 mls/hr IV Q6HP PRN PRN Reason: PAIN/FEVER > 101 Sodium Chloride (Sodium Chloride 0.9%) 250 mls @ 20 mls/hr IV .[id number] PENDING SALE TO [facility] Stop: 01/23/17 21:29 Sodium Chloride (Sodium Chloride 0.9%) 250 mls @ 20 mls/hr IV .[id number] PENDING SALE TO [facility] Stop: 01/23/17 21:29 Last Admin: 01/23/17 10:04 Dose: Not Given Levothyroxine Sodium (Synthroid) 100 mcg PO QAMAC PENDING SALE TO [facility] Last Admin: 01/22/17 07:42 Dose: 100 mcg Lisinopril (Zestril) 20 mg PO BID PENDING SALE TO [facility] Last Admin: 01/22/17 21:28 Dose: 20 mg Minoxidil (Minoxidil) 2.5 mg PO BID PENDING SALE TO [facility] Last Admin: 01/22/17 21:29 Dose: 2.5 mg Nadolol (Corgard) 80 mg PO BID PENDING SALE TO [facility] Last Admin: 01/22/17 21:29 Dose: 80 mg Ondansetron HCl (Zofran) 4 mg IV Q4-6HP PRN PRN Reason: Nausea And Vomiting Oxycodone HCl (Roxicodone) 5 mg PO Q4HP PRN PRN Reason: Pain Last Admin: 01/23/17 11:46 Dose: 5 mg Pantoprazole Sodium (Protonix) 40 mg IV QAMAC PENDING SALE TO [facility] Last Admin: 01/23/17 09:50 Dose: 40 mg Senna/Docusate Sodium (Senna Plus Tablet) 1 tab PO HS PENDING SALE TO [facility] Last Admin: 01/22/17 21:28 Dose: 1 tab Sertraline HCl (Zoloft) 75 mg PO DAILY PENDING SALE TO [facility] Last Admin: 01/22/17 09:32 Dose: 75 mg Sevelamer Carbonate (Renvela) 1,600 mg PO TIDCC PENDING SALE TO [facility] Last Admin: 01/23/17 10:10 Dose: 1,600 mg Sodium Chloride (Saline Flush) 10 ml IV Q8 PENDING SALE TO [facility] Last Admin: 01/23/17 06:04 Dose: 10 ml Torsemide (Demadex) 100 mg PO DAILY PENDING SALE TO [facility] Last Admin: 01/22/17 09:30 Dose: 100 mg Medical - PN: A/P - Time Spent With Patient Total time spent is greater than 50% in coordination of care (as documented) at patient's floor/unit and/or counseling patient: (1) Hyponatremia Status: Acute Current Visit: Yes (2) Shoulder fracture, left Status: Acute Current Visit: Yes (3) Hypertension Status: Acute Current Visit: Yes (4) Pain, postoperative, acute Status: Acute Current Visit: Yes (5) Closed left hip fracture Status: Acute Current Visit: Yes (6) End stage renal disease on dialysis Status: Acute Current Visit: Yes (7) Atrial fib/flutter, transient Status: Acute Current Visit: Yes (8) Non-ST elevation myocardial infarction (NSTEMI), type 2 Status: Acute Current Visit: Yes - Narrative A/P Narrative: HD today Transfuse 2 units blood for anemia, MOnitor Sodium later in the day after transfusion. monitor on tele for now. has intermittent afib, but plan is outpatient follow up for now. Medical - PN: Qual - VTE Deep Vein Thrombosis/Pulmonary Embolism Present on Admission: No
[2017-01-23] MEDS: LISINOPRIL 20 MG TABLET PO SCH ×2 (14:14→20:34)
[2017-01-23] MEDS: DOCUSATE SODIUM 100 MG CAPSULE PO SCH ×2 (14:14→20:14)
[2017-01-23] MEDS: CLOPIDOGREL 75 MG TABLET PO SCH (14:15)
[2017-01-23] MEDS: SERTRALINE 50 MG TABLET PO SCH (14:15)
[2017-01-23] MEDS: HEPARIN 5,000 UNIT/ML VIAL SQ SCH ×2 (14:15→20:33)
[2017-01-23] MEDS: ASPIRIN 81 MG TAB.CHEW PO SCH (14:16)
[2017-01-23] MEDS: cloNIDine HCL 0.1 MG TABLET PO SCH ×3 (14:16→20:33)
[2017-01-23] MEDS: TORSEMIDE 10 MG TABLET PO SCH (14:23)
[2017-01-23] MEDS: LEVOTHYROXINE 100 MCG TABLET PO SCH (14:24)
[2017-01-23] MEDS: NADOLOL 40 MG TABLET PO SCH ×2 (14:25→20:33)
[2017-01-23] MEDS: MINOXIDIL 2.5 MG TABLET PO SCH ×2 (14:25→21:11)
--- NOTE | 2017-01-23 14:58 | Orthopedic Progress Note ---
Subjective Patient information: Note initiated : 01/23/17 at 2:56 pm Service Date, if different from initiated Date: [] Patient: Debra Wolff 81 y/o F admitted on 01/18/17 for Fracture/Dislocation , Left Shoulder Fracture. Chief Complaint: [] Principal diagnosis: S/P left cephalomedullary nailing Interval history: doing well. no complaints from an ortho standpoint, issues with sodium and some confusion Objective Vital signs: Vital Signs Temp Pulse Pulse Resp BP BP BP 01/23/17 14:05 97.1 F L 43 L 112/67 01/23/17 13:37 58 L 166/57 01/23/17 13:02 60 165/63 01/23/17 12:31 94 H 187/61 01/23/17 12:01 81 176/52 01/23/17 12:00 97.8 F 20 176/92 01/23/17 11:30 77 157/65 01/23/17 11:01 81 159/54 01/23/17 10:36 96.3 F L 61 151/53 01/23/17 08:00 98.4 F 94 H 21 160/87 01/23/17 04:00 97.7 F 20 134/52 01/23/17 00:00 98.3 F 20 135/49 01/22/17 19:31 98.3 F 20 108/52 01/22/17 19:00 60 01/22/17 16:00 97.9 F 20 105/49 Pulse Ox 01/23/17 14:05 01/23/17 13:37 01/23/17 13:02 01/23/17 12:31 01/23/17 12:01 01/23/17 12:00 94 01/23/17 11:30 01/23/17 11:01 01/23/17 10:36 01/23/17 08:00 95 01/23/17 04:00 97 01/23/17 00:00 97 01/22/17 19:31 99 01/22/17 19:00 95 01/22/17 16:00 98 Intake and Output 01/23/17 01/23/17 01/23/17 05:59 13:59 21:59 Intake Total 880 / 880 Output Total 23162 / 80981 3400 / 3400 Balance 880 / 880 -59300 / -02377 -3400 / -3400 Intake: IV 580 / 580 Sodium Chloride 0.9% 500 530 / 530 ml @ 88.333 mls/hr IV ONCE ONE with Aredia 90 mg Rx#:[id number] Sodium Chloride 3% 50 ml 50 / 50 @ 50 mls/hr IV ONCE TERESA Rx#:[id number] Oral 300 / 300 Output: Void Amount 250 / 250 Hemodialysis UF 89567 / 79646 3400 / 3400 Other: # Bowel Movements 0 Intake & Output: Intake & Output 01/23/17 01/23/17 01/23/17 05:59 13:59 21:59 Intake Total 880 / 880 Output Total 93945 / 11037 3400 / 3400 Balance 880 / 880 -76870 / -63457 -3400 / -3400 Intake: IV 580 / 580 Sodium Chloride 0.9% 500 530 / 530 ml @ 88.333 mls/hr IV ONCE ONE with Aredia 90 mg Rx#:[id number] Sodium Chloride 3% 50 ml 50 / 50 @ 50 mls/hr IV ONCE TERESA Rx#:[id number] Oral 300 / 300 Output: Void Amount 250 / 250 Hemodialysis UF 19839 / 31148 3400 / 3400 Other: # Bowel Movements 0 Incision: Yes healing, Yes clean and dry Incision clean and dry: Yes Dressing: Yes clean, Yes dry, Yes intact Weight bearing status: non Neurological exam IM: Yes abnormal gait, Yes alert, Yes oriented X3, Yes motor sensory intact, Yes neurovascular intact Extremities exam IM: Yes Foot pink and warm, Yes neurovascular intact - Labs CBC & BMP: 01/23/17 04:19 01/23/17 04:19 Labs: 01/23/17 01/22/17 01/21/17 04:19 04:40 03:29 Hgb 7.7 L 8.8 L 9.2 L Hct 23.4 L 26.8 L 27.4 L 01/20/17 01/19/17 03:25 05:35 Hgb 8.8 L 11.8 L Hct 26.7 L 35.6 L Assessment and Plan (1) Closed left hip fracture pod 4 s/p left hip gamma nail. left proximal humerus fracture non-operative treatment NWB LUE, NWB LLE but ok to stand and pivot for transfers ok to come out of the sling for rom of the elbow, wrist, fingers take of mckayla wrap over arm at least once per day to allow skin to breath ok for rehab when ok per medicine f/u in office in 10-14 days. Status: Acute Qualifiers: Encounter type: subsequent encounter Fracture healing: with routine healing Qualified Code(s): S72.002D - Fracture of unspecified part of neck of left femur, subsequent encounter for closed fracture with routine healing
[2017-01-23] MEDS: SENNOSIDES/DOCUSATE SODIUM 1 TAB TABLET PO SCH (20:31)
[2017-01-23] MEDS: ATORVASTATIN 20 MG TABLET PO SCH (20:40)
[2017-01-24 00:48] LABS: Blood Urea Nitrogen 17 mg/dl (8-23)
[2017-01-24 00:51] LABS: Basophils # (Auto) 0 K/mcL (0.0-0.3); Basophils % (Auto) 0 % (0.0-2.0); Eosinophils # (Auto) 0.1 K/mcL (0.0-0.7); Eosinophils % (Auto) 0.9 % (0.0-7.0); Granulocytes % (Auto) 84.2 % (38.0-78.0); Lymphocytes # (Auto) 1.1 K/mcL (1.5-4.8); Lymphocytes % (Auto) 9.1 % (15.5-49.0); Mean Cell Volume 87.5 fL (80.0-100.0); Mean Corpuscular HGB Conc 32.1 g/dL (31.0-36.0); Mean Corpuscular Hemoglobin 28.1 pg (26.0-34.0); Monocytes # (Auto) 0.7 K/mcL (0.1-0.9); Monocytes % (Auto) 5.8 % (1.0-9.0); Platelet Count 180 K/mcL (140-440); RBC 3.78 M/mcL (4.00-5.20); Red Cell Distribution Width 14.3 % (11.5-14.5)
[2017-01-24] MEDS ORDERED: LORazepam 2 MG/ML VIAL IV PRN (02:27)
[2017-01-24] MEDS ORDERED: HYDROmorphone 2 MG TABLET PO PRN (07:22)
[2017-01-24 08:08] LABS: ALT/SGPT 30 U/l (0-40); Albumin 2.7 gm/dL (3.2-5.2); Albumin/Globulin Ratio 1.1 (1.0-2.3); Alkaline Phosphatase 104 U/L (39-117); Bilirubin,Direct 0.4 mg/dL (0.0-0.3); Blood Urea Nitrogen 17 mg/dl (8-23); Gamma Glutamyl Transpeptidase 37 U/L (5-36); Phosphorous 2.8 mg/dL (2.7-4.5); Uric Acid 2.9 mg/dL (2.5-8.0)
[2017-01-24] MEDS: MINOXIDIL 2.5 MG TABLET PO SCH ×2 (08:33→20:53)
[2017-01-24] MEDS: cloNIDine HCL 0.1 MG TABLET PO SCH ×3 (08:33→20:54)
[2017-01-24] MEDS: LISINOPRIL 20 MG TABLET PO SCH ×2 (08:33→20:54)
[2017-01-24] MEDS: HYDROmorphone 2 MG/ML SYRINGE IV PRN ×2 (08:35→22:01)
--- NOTE | 2017-01-24 08:36 | Nephrology Progress Note ---
Subjective Patient information: Note initiated : 01/24/17 at 8:33 am Service Date, if different from initiated Date: [] Patient: Debra Wolff 81 y/o F admitted on 01/18/17 for Fracture/Dislocation , Left Shoulder Fracture. Chief Complaint: Was confused at night. This morning painful when moved to have CT. When she is in bed, she is pain free. Principal diagnosis: S/P left cephalomedullary nailing Objective - Vital Signs Vital signs: Vital Signs Temp Pulse Pulse Resp BP BP BP 01/24/17 04:00 98.5 F 68 20 114/46 01/24/17 00:00 98.8 F 74 18 103/42 01/23/17 20:00 97.5 F L 20 88/42 01/23/17 17:42 99.4 F 74 16 105/30 01/23/17 16:00 97.1 F L 20 89/34 01/23/17 14:05 97.1 F L 43 L 112/67 01/23/17 13:37 58 L 166/57 01/23/17 13:02 60 165/63 01/23/17 12:31 94 H 187/61 01/23/17 12:01 81 176/52 01/23/17 12:00 97.8 F 20 176/92 01/23/17 11:30 77 157/65 01/23/17 11:01 81 159/54 01/23/17 10:36 96.3 F L 61 151/53 Pulse Ox 01/24/17 04:00 98 01/24/17 00:00 97 01/23/17 20:00 99 01/23/17 17:42 100 01/23/17 16:00 100 01/23/17 14:05 01/23/17 13:37 01/23/17 13:02 01/23/17 12:31 01/23/17 12:01 01/23/17 12:00 94 01/23/17 11:30 01/23/17 11:01 01/23/17 10:36 Intake and Output 01/23/17 01/24/17 01/24/17 21:59 05:59 13:59 Intake Total 565 / 565 425 / 425 Output Total 3400 / 3400 Balance -2835 / -2835 425 / 425 Intake: Oral 240 / 240 100 / 100 Blood Product 325 / 325 325 / 325 Output: Void Amount 0 / 0 Hemodialysis UF 3400 / 3400 Other: Meal Dinner Percent of Meal Consumed 75% Feeding Ability Assist with Tray Set Up # Bowel Movements 0 Weight 121 lb Intake & Output: Intake & Output 01/23/17 01/24/17 01/24/17 21:59 05:59 13:59 Intake Total 565 / 565 425 / 425 Output Total 3400 / 3400 Balance -2835 / -2835 425 / 425 Weight 121 lb Intake: Oral 240 / 240 100 / 100 Blood Product 325 / 325 325 / 325 Output: Void Amount 0 / 0 Hemodialysis UF 3400 / 3400 Other: Meal Dinner Percent of Meal Consumed 75% Feeding Ability Assist with Tray Set Up # Bowel Movements 0 - General Appearance General appearance: appears started age EENT: ATNC Neck: no JVD Respiratory: no kyphosis Cardiology: no murmurs Gastrointestinal: normoactive bowel sounds Integumentary: no rash Neurologic: no focal deficit Musculoskeletal: no deformities - Lab 01/23/17 23:40 01/23/17 23:40 Most recent lab results Calcium 7.6 mg/dl (8.6-10.4) L 01/23/17 23:40 Phosphorus 2.8 mg/dL (2.7-4.5) 01/23/17 23:40 Magnesium 2.0 mg/dL (1.6-2.5) 01/23/17 23:40 Assessment and Plan (1) End stage renal disease on dialysis ESRD on dialysis now. Doing well. Volume status appear adequate. BP getting high on dialysis. She will get more clonidine. Hyponatremia. Restrict free water. Being dialysed. Better this am. Change in mental status. Related to narcotics. Will get a head ct because of recent fall. Status: Acute
[2017-01-24] MEDS ORDERED: CALCITONIN NASAL SPRAY 3.7ML BOTTLE NS SCH (09:00)
[2017-01-24] MEDS ORDERED: CELECOXIB 100 MG CAPSULE PO ONE (09:00)
[2017-01-24] MEDS: SEVELAMER 800 MG TABLET PO SCH ×3 (09:18→17:21)
[2017-01-24] MEDS: NADOLOL 40 MG TABLET PO SCH ×2 (09:55→20:54)
[2017-01-24] MEDS: 0.9 % SODIUM CHLORIDE 10 ML SYRINGE IV SCH ×3 (09:56→22:53)
[2017-01-24] MEDS: cloNIDine HCL 0.1 MG TABLET PO PRN (11:01)
[2017-01-24] MEDS: TORSEMIDE 10 MG TABLET PO SCH (12:45)
[2017-01-24] MEDS: LACTULOSE 20 GM/30 ML ORAL.SOL PO SCH ×3 (12:59→20:52)
[2017-01-24] MEDS: HEPARIN 5,000 UNIT/ML VIAL SQ SCH ×2 (13:00→20:54)
[2017-01-24] MEDS: PANTOPRAZOLE 40 MG VIAL IV SCH (13:00)
[2017-01-24] MEDS: POLYETHYLENE GLYCOL 3350 17 GM PACKET PO SCH (13:01)
[2017-01-24] MEDS: DOCUSATE SODIUM 100 MG CAPSULE PO SCH ×2 (13:02→20:54)
[2017-01-24] MEDS: LEVOTHYROXINE 100 MCG TABLET PO SCH (13:03)
[2017-01-24] MEDS: ASPIRIN 81 MG TAB.CHEW PO SCH (13:03)
[2017-01-24] MEDS: CLOPIDOGREL 75 MG TABLET PO SCH (13:04)
[2017-01-24] MEDS: SERTRALINE 50 MG TABLET PO SCH (13:04)
[2017-01-24] MEDS: traMADol HCL/ACETAMINOPHEN 1 TAB TABLET PO SCH ×2 (13:13→20:55)
[2017-01-24] MEDS ORDERED: CELECOXIB 200 MG CAPSULE PO ONE (14:00)
--- NOTE | 2017-01-24 14:17 | Internal Med Progress Note ---
Medical - PN: Subj Patient information: Note initiated : 01/24/17 at 2:13 pm Service Date, if different from initiated Date: [] Patient: Debra Wolff 81 y/o F admitted on 01/18/17 for Fracture/Dislocation , Left Shoulder Fracture. Chief Complaint: [] Interval history: 01/18-patient admitted after a fall with Lt humerus and left femur fracture, pelvis fracture. History of ESRD on HD management nephrology. Await orthopedics intervention. Review postop. 01/19-patient seen in room. anesthesia concerned about Intra-Op EKG changes including ST depression. Serial troponin uptrending from 0.06-0.15 likely secondary to anesthesia induced demand ischemia. however patient clearly is asymptomatic without any pain diaphoresis dizziness or unstable hemodynamics. Continue serial trending. patient already on aspirin and Plavix and statin. Patient will require outpatient cardiac stress testing. Extensive peripheral vascular disease as evident on abdominal imaging. hemodialysis ongoing. Postoperative care as per orthopedics along with aggressive rehabilitation. EKG no significant change. ADDENDUM 01/19- 18:00 - case discussed with Dr Conti doll eye setter at [facility] as [facility] did not have tele beds. Television News Reporter recommended medical management as 16 Hrs out troponin level 0.28 is quite reassuring for a minor ischemic event likely precipitated by surgery/ stress. He recommended ASA/ plavix to continue along with statin and a B Natalie. Also Echo and OP nuke stress test on discharge. 01/20- troponin at 0.27 at 24 hours with a peak of 0.28. No chest pain. On aspirin and Plavix/statin. Scheduled outpatient nuclear studies on discharge. Recovering well from hip surgery. No significant postoperative pain. Patient expresses concern about left shoulder fracture and nonoperative management and wanted a second opinion from orthopedics. I subsequently discussed case with Dr. Levi Wilosn would see the patient and review images for further advice. I then informed patient about discussion with Dr. Wilson. Patient had hemodialysis yesterday. Managed by nephrology. No overnight fever chills or other concerns per staff. No telemetry events. 01/21- Patient complaining of left elbow pain. No overnight events. paroxysmal A. fib rate controlled and intermittently in sinus. Hemodialysis yesterday. patient's chads score is over 2 mandating anticoagulation on Coumadin however being on aspirin and Plavix patient will be a high risk bleeding. at this time will continue an aspirin Plavix/beta natalie and have patient follow outpatient cardiology/nuclear stress test on discharge. orthopedics recommends discharging in 24 hours. no overnight fever chills nausea vomiting. Telemetry paroxysmal A. fib. white count down to 11.8 from 14.2. Afebrile. 01/22 Patient reports pain control is not adequate, she still is in significant pain, labs reviewed shows Sodium dropped to 124, from 136, no changes in mental status. The patient is also drinking a lot of water as per her. Discussed with her that the low sodium could be from pain vs excess water consumption [facility]. Pt will be placed on free water restriction of 1500ml, started on po oxycodone in addition to dilaudid for pain control. Overnight intermittent in AFib, but no RVR, monitor, to be followed up by cardiology as outpatient. Pt was also on rocephin for unknow reason, I spoke with Dr Hassan who noted no indication for IV antibiotics, I could not find any need for rocephin based on chart review. no h/o infection in ER notes in [facility]. Will stop same. 01/23 pt seen examined, overnight events noted, pt was hyponatremic last night needing hypertonic saline x 1, her na this AM was better, but she was confused so was monitored on tele. She had HD today Discussed her case with her rate engineer Dr Gilbert who advised that she will get better after dialysis and to keep her on fluid restriction in the [place] She had HD today Her hb was low and plan to give her 2 Units prbc Pt denies any bleeding, no black stools, no halle Will keep pt for 24 hrs and monitor her, d/c to snf if remains stable in AM, Pain control with iv dialudid and po oxycodone for now. 01/24 patient seen examined, was confused last night, Na level > 130, do not think low sodium was source of confustion. patient this am somewhat confused but better than yesterday, feeling much better. still has severe pain when she moves. plan was for d/c today, however given ther pain issues when moved, consideration given to see if we could change the patient to swing status till her pain is better controlled and then d/c her. The patient will h ave HD today, continue on fluid restrictions Medication oxycodone changed to po dilaudid. Delirium could be related to this medication Dr Gilbert also added some tramadol and ordered Head CT for the patient. Pertinent ROS: Denies headache, dizziness Denies chest pain, palpitations Denies cough or shortness of breath Denies abdominal pain, nausea or vomiting. - Constitutional Vitals: Vital Signs Temp Pulse Resp BP Pulse Ox 97.9 F 108 H 20 139/100 93 01/24/17 12:03 01/24/17 12:03 01/24/17 12:00 01/24/17 12:03 01/24/17 12:00 Period Temp Pulse Resp BP Sys/Spence Pulse Ox Last 24 Hr 97.1 F-99.4 F 68-108 16-20 88-185/30-100 93-100 Intake and Output 01/24/17 01/24/17 01/24/17 05:59 13:59 21:59 Intake Total 538 / 538 420 / 420 Output Total 85218 / 23609 Balance 538 / 538 -79451 / -64114 Intake & Output: Intake & Output 01/24/17 01/24/17 01/24/17 05:59 13:59 21:59 Intake Total 538 / 538 420 / 420 Output Total 11470 / 95713 Balance 538 / 538 -82277 / -31654 Intake: IV 113 / 113 Sodium Chloride 0.9% 250 113 / 113 ml @ 20 mls/hr IV . [id number] [facility] Rx#:[id number] Oral 100 / 100 420 / 420 Blood Product 325 / 325 Output: Hemodialysis UF 74585 / 45901 Other: Meal Lunch Percent of Meal Consumed 50% Feeding Ability Assist with Tray Set Up Exam: Constitutional; Afebrile, cooperative, alert, not in distress. Eyes- No icterus, Pupils equal, reactive, No periorbital swelling Ears- Ext ear normal, hearing normal to conversation. Neck- Midline trachea, supple Respiratory system: Air Entry equal on both sides, No crackles or wheezing, no rhonchi. CVS- Rate rhythm regular, S1,S2 heard, no gallop, no rub. Abdomen- Soft nontender abdomen, no organomegaly, no tenderness, no guarding or rigidity, EARLY INTERVENTION SPECIALIST- AOOx2, moving all extremities, no focal deficit noted. Medical - PN: Obj Da - Labs CBC & Chem 7: 01/23/17 23:40 01/23/17 23:40 Labs: Abnormal Lab Results 01/23/17 01/23/17 01/23/17 23:40 23:40 23:40 WBC 12.6 H RBC 3.78 L Hgb 10.6 L Hct 33.1 L RDW Gran % 84.2 H Lymph % (Auto) 9.1 L Gran # 10.7 H Lymph # 1.1 L Seg Neutrophils % Lymphocytes % Monocytes % (Manual) WBC Morphology Vacuolated Neuts RBC Morphology Polychromasia Anisocytosis Sodium 132 L 131 L Potassium Chloride 90 L 91 L Anion Gap 18.0 H BUN Creatinine 2.9 H 3.0 H Glucose 151 H 147 H Calcium 7.6 L 7.6 L Total Bilirubin 1.4 H Direct Bilirubin 0.4 H GGT 37 H Lactate Dehydrogenase 296 H Total Protein 5.2 L Albumin 2.7 L Albumin/Globulin Ratio Triglycerides 178 H 01/23/17 01/23/17 01/22/17 04:19 04:19 21:30 WBC 11.1 H RBC 2.50 L Hgb 7.7 L Hct 23.4 L RDW 15.2 H Gran % Lymph % (Auto) Gran # Lymph # Seg Neutrophils % 83 H Lymphocytes % 5 L Monocytes % (Manual) WBC Morphology Abnorm A Vacuolated Neuts 1+ A RBC Morphology Abnorm A Polychromasia Few A Anisocytosis 1+ A Sodium 123 L 120 L Potassium 3.2 L Chloride 84 L 82 L Anion Gap 17.0 H BUN 33 H 32 H Creatinine 5.0 H 4.8 H Glucose 139 H 156 H Calcium 8.0 L 7.7 L Total Bilirubin Direct Bilirubin GGT Lactate Dehydrogenase 256 H Total Protein 5.5 L Albumin 2.5 L Albumin/Globulin Ratio 0.8 L Triglycerides 179 H 01/22/17 01/22/17 01/22/17 13:25 04:40 04:40 WBC 11.9 H RBC 2.84 L Hgb 8.8 L Hct 26.8 L RDW 15.3 H Gran % Lymph % (Auto) Gran # Lymph # Seg Neutrophils % Lymphocytes % Monocytes % (Manual) 10 H WBC Morphology Vacuolated Neuts RBC Morphology Polychromasia Anisocytosis Sodium 122 L 124 L Potassium Chloride 82 L 85 L Anion Gap BUN 30 H 24 H Creatinine 4.7 H 4.4 H Glucose 154 H 157 H Calcium 7.9 L 8.0 L Total Bilirubin Direct Bilirubin GGT 43 H Lactate Dehydrogenase 296 H Total Protein 5.6 L Albumin 2.6 L Albumin/Globulin Ratio 0.9 L Triglycerides 193 H Meds: Medications Acetaminophen (Tylenol) 650 mg PO Q4-6HP PRN PRN Reason: PAIN/FEVER > 101 Last Admin: 01/19/17 22:16 Dose: 650 mg Aspirin (Aspirin) 81 mg PO DAILY [facility] Last Admin: 01/24/17 13:03 Dose: 81 mg Atorvastatin Calcium (Lipitor) 80 mg PO HS [facility] Last Admin: 01/23/17 20:40 Dose: 80 mg Bisacodyl (Dulcolax) 10 mg IA Q2-3DAYS PRN PRN Reason: Constipation Calcium Carbonate/Glycine (Tums) 500 mg CHEWED Q4HP PRN PRN Reason: Dyspepsia Clonidine HCl (Catapres) 0.2 mg PO TID [facility] Last Admin: 01/24/17 13:11 Dose: Not Given Clonidine HCl (Catapres) 0.1 mg PO Q4HP PRN PRN Reason: Hypertension Last Admin: 01/24/17 11:01 Dose: 0.1 mg Clopidogrel Bisulfate (Plavix) 75 mg PO DAILY [facility] Last Admin: 01/24/17 13:04 Dose: 75 mg Docusate Sodium (Colace) 100 mg PO BID [facility] Last Admin: 01/24/17 13:02 Dose: 100 mg Heparin Sodium (Porcine) (Heparin) 5,000 unit SQ Q12 [facility] Last Admin: 01/24/17 13:00 Dose: 5,000 unit Hydralazine HCl (Apresoline) 10 mg IV Q4-6HP PRN PRN Reason: Hypertension Last Admin: 01/21/17 03:54 Dose: 10 mg Hydromorphone HCl (Dilaudid) 0 mg IV Q4HP PRN PRN Reason: Pain Last Admin: 01/24/17 08:35 Dose: 0.5 mg Hydromorphone HCl (Dilaudid) 2 mg PO Q4HP PRN PRN Reason: Pain Acetaminophen (Ofirmev) 1,000 mg in 100 mls @ 200 mls/hr IV Q6HP PRN PRN Reason: PAIN/FEVER > 101 Lactulose (Cephulac) 30 gm PO TID [facility] Last Admin: 01/24/17 13:12 Dose: Not Given Levothyroxine Sodium (Synthroid) 100 mcg PO QAMAC [facility] Last Admin: 01/24/17 13:03 Dose: 100 mcg Lisinopril (Zestril) 20 mg PO BID [facility] Last Admin: 01/24/17 08:33 Dose: Not Given Lorazepam (Ativan) 1 mg IV Q2-4HP PRN PRN Reason: ANXIETY/SEDATION Minoxidil (Minoxidil) 2.5 mg PO BID [facility] Last Admin: 01/24/17 08:33 Dose: Not Given Nadolol (Corgard) 80 mg PO BID [facility] Last Admin: 01/24/17 09:55 Dose: 80 mg Ondansetron HCl (Zofran) 4 mg IV Q4-6HP PRN PRN Reason: Nausea And Vomiting Pantoprazole Sodium (Protonix) 40 mg IV QAMAC [facility] Last Admin: 01/24/17 13:00 Dose: 40 mg Polyethylene Glycol (Miralax) 17 gm PO DAILY [facility] Last Admin: 01/24/17 13:01 Dose: 17 gm Senna/Docusate Sodium (Senna Plus Tablet) 1 tab PO HS [facility] Last Admin: 01/23/17 20:31 Dose: 1 tab Sertraline HCl (Zoloft) 75 mg PO DAILY [facility] Last Admin: 01/24/17 13:04 Dose: 75 mg Sevelamer Carbonate (Renvela) 1,600 mg PO TIDCC [facility] Last Admin: 01/24/17 13:03 Dose: 1,600 mg Sodium Chloride (Saline Flush) 10 ml IV Q8 [facility] Last Admin: 01/24/17 13:21 Dose: 10 ml Torsemide (Demadex) 100 mg PO DAILY [facility] Last Admin: 01/24/17 12:45 Dose: Not Given Tramadol/Acetaminophen (Ultracet) 1 tab PO BID [facility] Last Admin: 01/24/17 13:13 Dose: 1 tab Medical - PN: A/P - Time Spent With Patient Total time spent is greater than 50% in coordination of care (as documented) at patient's floor/unit and/or counseling patient: (1) Hyponatremia Status: Acute Current Visit: Yes (2) Shoulder fracture, left Status: Acute Current Visit: Yes (3) Hypertension Status: Acute Current Visit: Yes (4) Pain, postoperative, acute Status: Acute Current Visit: Yes (5) Closed left hip fracture Status: Acute Current Visit: Yes (6) End stage renal disease on dialysis Status: Acute Current Visit: Yes (7) Atrial fib/flutter, transient Status: Acute Current Visit: Yes (8) Non-ST elevation myocardial infarction (NSTEMI), type 2 Status: Acute Current Visit: Yes - Narrative A/P Narrative: Hyponatreami improving, on fluid restriction continue same, HD also helping, Delirium- due to age and pain/ Oxycodone, Medication changed. Pain- On po dilaudid, IV dilaudid and prn tramadol, monitor ESRD on HD NSTEMI/ AFIB follow up as outpatient with cardiology Patient will be changed to swing status tomorrow to help with pain management. to Avoid transportation of the patient back and forth from [place] for dialysis as this would exacerbate the patients pain. If swing is not possible, the patient can be d/c to SNF in AM. Medical - PN: Qual - VTE Deep Vein Thrombosis/Pulmonary Embolism Present on Admission: No
--- NOTE | 2017-01-24 17:26 | Cat Scan Report ---
CLINICAL INFORMATION: Decreased mental status COMPARISON: None. TECHNIQUE: 2.5 mm helical slices were obtained in the skull base to vertex. Following reconstruction, axial reformatted images were reviewed at bone and parenchymal windows. FINDINGS: The ventricles, sulci, fissures, and cisterns are symmetrically enlarged compatible with with mild age-related atrophy - no extra-axial fluid collections or masses appreciated. Minimal chronic ischemic changes in the deep cerebral white matter typical for age. There is no intracerebral hemorrhage, mass effect, edema or other acute finding. Bone windows show no osseous abnormality. IMPRESSION: Mild atrophy and chronic ischemic changes in cerebral white matter is typical for age.. Interpreted and Authenticated by: Jacinto Rivera 01/24/17
[2017-01-24] MEDS: ATORVASTATIN 20 MG TABLET PO SCH (20:52)
[2017-01-24] MEDS: ACETAMINOPHEN 325 MG TABLET PO PRN (20:53)
[2017-01-24] MEDS: SENNOSIDES/DOCUSATE SODIUM 1 TAB TABLET PO SCH (20:54)
[2017-01-25] MEDS: 0.9 % SODIUM CHLORIDE 10 ML SYRINGE IV SCH ×2 (05:31→07:43)
[2017-01-25 05:51] LABS: Basophils # (Auto) 0.1 K/mcL (0.0-0.3); Basophils % (Auto) 0.7 % (0.0-2.0); Eosinophils # (Auto) 0.1 K/mcL (0.0-0.7); Eosinophils % (Auto) 0.8 % (0.0-7.0); Granulocytes % (Auto) 82.1 % (38.0-78.0); Lymphocytes # (Auto) 1.1 K/mcL (1.5-4.8); Lymphocytes % (Auto) 9.8 % (15.5-49.0); Mean Cell Volume 91.2 fL (80.0-100.0); Mean Corpuscular HGB Conc 32.8 g/dL (31.0-36.0); Mean Corpuscular Hemoglobin 29.9 pg (26.0-34.0); Monocytes # (Auto) 0.8 K/mcL (0.1-0.9); Monocytes % (Auto) 6.6 % (1.0-9.0); Platelet Count 201 K/mcL (140-440); RBC 3.88 M/mcL (4.00-5.20); Red Cell Distribution Width 16.2 % (11.5-14.5)
[2017-01-25 06:31] LABS: ALT/SGPT 38 U/l (0-40); Albumin/Globulin Ratio 1.2 (1.0-2.3); Alkaline Phosphatase 135 U/L (39-117); Bilirubin,Direct 0.2 mg/dL (0.0-0.3); Blood Urea Nitrogen 16 mg/dl (8-23); Gamma Glutamyl Transpeptidase 47 U/L (5-36); Magnesium 2.2 mg/dL (1.6-2.5); Phosphorous 1.9 mg/dL (2.7-4.5); Uric Acid 2.4 mg/dL (2.5-8.0)
--- NOTE | 2017-01-25 06:43 | Orthopedic Progress Note ---
Subjective Patient information: Note initiated : 01/25/17 at 6:42 am Service Date, if different from initiated Date: [] Patient: Debra Wolff 81 y/o F admitted on 01/18/17 for Fracture/Dislocation , Left Shoulder Fracture. Chief Complaint: [] Principal diagnosis: S/P left cephalomedullary nailing Interval history: still painful but improving, hip feels better. shoulder still sore with motion Objective Vital signs: Vital Signs Temp Pulse Resp BP BP BP Pulse Ox 01/25/17 04:00 97.8 F 12 132/65 99 01/25/17 00:00 97.3 F L 16 114/58 97 01/24/17 20:00 97.9 F 18 145/49 99 01/24/17 16:00 97.8 F 18 105/46 95 01/24/17 12:03 97.9 F 108 H 139/100 01/24/17 12:00 97.2 F L 20 139/72 93 01/24/17 11:27 88 157/71 01/24/17 10:56 98 H 175/77 01/24/17 10:27 90 185/65 01/24/17 09:55 80 143/60 01/24/17 09:26 96 H 146/83 01/24/17 09:02 97.5 F L 88 131/65 Intake and Output 01/24/17 01/25/17 01/25/17 21:59 05:59 13:59 Intake Total 600 / 600 360 / 360 Balance 600 / 600 360 / 360 Intake: Oral 600 / 600 360 / 360 Other: Meal Dinner Percent of Meal Consumed 50% Feeding Ability Independent # Voids 1 # Bowel Movements 2 Weight 117 lb 6.4 oz Intake & Output: Intake & Output 01/24/17 01/25/17 01/25/17 21:59 05:59 13:59 Intake Total 600 / 600 360 / 360 Balance 600 / 600 360 / 360 Weight 117 lb 6.4 oz Intake: Oral 600 / 600 360 / 360 Other: Meal Dinner Percent of Meal Consumed 50% Feeding Ability Independent # Voids 1 # Bowel Movements 2 Incision: Yes clean and dry Incision clean and dry: Yes Dressing: Yes clean, Yes dry, Yes intact Weight bearing status: non Neurological exam IM: Yes motor sensory intact, Yes neurovascular intact Extremities exam IM: Yes Foot pink and warm, Yes neurovascular intact - Labs CBC & BMP: 01/25/17 04:16 01/25/17 04:16 Labs: 01/25/17 01/23/17 01/23/17 04:16 23:40 04:19 Hgb 11.6 L 10.6 L 7.7 L Hct 35.3 L 33.1 L 23.4 L 01/22/17 01/21/17 01/20/17 04:40 03:29 03:25 Hgb 8.8 L 9.2 L 8.8 L Hct 26.8 L 27.4 L 26.7 L 01/19/17 05:35 Hgb 11.8 L Hct 35.6 L Assessment and Plan (1) Closed left hip fracture pod 6 s/p left hip gamma nail. left proximal humerus fracture non-operative treatment NWB LUE, NWB LLE but ok to stand and pivot for transfers ok to come out of the sling for rom of the elbow, wrist, fingers take of mckayla wrap over arm at least once per day to allow skin to breath ok for rehab when ok per medicine f/u in office in 10-14 days. Status: Acute Qualifiers: Encounter type: subsequent encounter Fracture healing: with routine healing Qualified Code(s): S72.002D - Fracture of unspecified part of neck of left femur, subsequent encounter for closed fracture with routine healing
[2017-01-25] MEDS: PANTOPRAZOLE 40 MG VIAL IV SCH (07:43)
[2017-01-25] MEDS: LEVOTHYROXINE 100 MCG TABLET PO SCH (07:43)
[2017-01-25] MEDS: HYDROmorphone 2 MG/ML SYRINGE IV PRN (08:02)
[2017-01-25] MEDS: SEVELAMER 800 MG TABLET PO SCH ×2 (08:05→12:30)
[2017-01-25] MEDS: ASPIRIN 81 MG TAB.CHEW PO SCH (09:02)
[2017-01-25] MEDS: SERTRALINE 50 MG TABLET PO SCH (09:03)
[2017-01-25] MEDS: NADOLOL 40 MG TABLET PO SCH (09:04)
[2017-01-25] MEDS: cloNIDine HCL 0.1 MG TABLET PO SCH (09:04)
[2017-01-25] MEDS: MINOXIDIL 2.5 MG TABLET PO SCH (09:04)
[2017-01-25] MEDS: DOCUSATE SODIUM 100 MG CAPSULE PO SCH (09:04)
[2017-01-25] MEDS: CLOPIDOGREL 75 MG TABLET PO SCH (09:04)
[2017-01-25] MEDS: traMADol HCL/ACETAMINOPHEN 1 TAB TABLET PO SCH (09:05)
[2017-01-25] MEDS: HEPARIN 5,000 UNIT/ML VIAL SQ SCH (09:05)
[2017-01-25] MEDS: TORSEMIDE 10 MG TABLET PO SCH (09:06)
[2017-01-25] MEDS: LISINOPRIL 20 MG TABLET PO SCH (09:12)
[2017-01-25] MEDS: POLYETHYLENE GLYCOL 3350 17 GM PACKET PO SCH (09:13)
--- NOTE | 2017-01-25 11:31 | Discharge Summary ---
Medical - DS: Prov Patient information: Note initiated : 01/25/17 at 11:29 am Service Date, if different from initiated Date: [] Patient: Debra Wolff 81 y/o F admitted on 01/18/17 for Fracture/Dislocation , Left Shoulder Fracture. Chief Complaint: [] Date of admission: 01/18/17 06:45 Discharge date: 01/25/17 Primary care physician: [Dr. Saravia, phone #[phone]] Admitting clinician: Gray Rivas Consults: 01/18/17 07:13 Consult to Physician [CONS] Routine Comment: Consulting Provider: Gabby Yeung Reason For Exam: Physician to Consult 01/18/17 07:24 Consult to Physician [CONS] Routine Comment: Consulting Provider: Jacinto Boyce Reason For Exam: Physician to Consult Attending physician on discharge: Sharron Pillai Medical - DS: Meds - Discharge Medications Active and Home Medications: Home Medications Acetaminophen [Tylenol] 1,000 mg PO Q4-6HP PRN 01/18/17 [History Confirmed 01/18 Last Taken 01/17/17] Aspirin [Aspirin] 81 mg PO DAILY 01/18/17 [History Confirmed 01/18/17 Last Taken 01/17/17] Atorvastatin Calcium 80 mg PO HS 01/18/17 [History Confirmed 01/18/17 Last Taken 01/17/17] Calcium Carbonate [Tums] 500 mg CHEWED Q4HP PRN 01/18/17 [History Confirmed 01/05 Last Taken 01/11/17] Clopidogrel Bisulfate [Plavix] 75 mg PO DAILY 01/18/17 [History Confirmed Last Taken 01/17/17] Docusate Sodium [Colace] 100 mg PO DAILY 01/18/17 [History Confirmed 01/18/17 Last Taken 01/17/17] Glimepiride [Amaryl] 2 mg PO QAMAC 01/18/17 [History Confirmed 01/18/17 Last Taken 01/17/17] Levothyroxine Sodium [Levoxyl] 100 mcg PO QAMCC 01/18/17 [History Confirmed 01/05 Last Taken 01/17/17] Lisinopril [Zestril] 20 mg PO BID 01/18/17 [History Confirmed 01/18/17 Last Taken 01/17/17] Minoxidil 2.5 mg PO BID 01/18/17 [History Confirmed 01/18/17 Last Taken 01/17/17 ] Nadolol [Corgard] 80 mg PO BID 01/18/17 [History Confirmed 01/18/17 Last Taken 01/17/17] Sertraline HCl [Zoloft] 75 mg PO DAILY 01/18/17 [History Confirmed 01/18/17 Last Taken 01/17/17] Sevelamer [Renvela] 1,600 mg PO TIDCC 01/18/17 [History Confirmed 01/18/17 Last Taken 01/17/17] Torsemide 100 mg PO DAILY 01/18/17 [History Confirmed 01/18/17 Last Taken ] Vit B Cmplx 3/FA/Vit C/Biotin [Yamile-Luigi Rx Tablet] 1 tab PO DAILY 01/18/17 [ History Confirmed 01/18/17 Last Taken 01/17/17] cloNIDine HCL [Catapres] 0.1 mg PO TID 01/18/17 [History Confirmed 01/18/17 Last Taken 01/17/17] Medical - DS: Hosp Hospital course: Mrs. Wolff is a 81 year old female who was admitted on January 18 after a fall which caused a left humerus and left femur fracture, as well as a pelvis fracture. -She did have some EKG changes intra-op, and her troponin did bump from 0.06 up to 0.28. This was thought due to demand ischemia. she has remained clinically stable.- ardiology telephone consult was obtained with Dr. Conti at [facility], and he suggested continuing medical management with aspirin and Plavix, plus statin and beta trinity. He recommends echocardiogram and stress test after discharge. -the patient also has intermittent atrial fibrillation, and chads score of greater than 2, which would suggest adding Coumadin. However this has been held because of her need for aspirin and Plavix. -The patient did develop hyponatremia with sodium dropped down to 124. 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 She has undergone 3 times per week dialysis while here. - the patient has had some episodes of confusion at night, thought to be due to a combination of her low sodium, ICU psychosis, and pain medications. Oxycodone was changed over to by mouth Dilaudid, and she does seem to be tolerating that better. -left hip gamma nail was placed by Dr. Boyce for her hip fracture. -the patient did have postop anemia, and was transfused 2 units of packed red blood cells. today, the patient's pain control seems to be better. She is having less of the excruciating left arm pain. She was able to sit up in a chair for a while today. Our team thinks that she is ready to discharge to rehabilitation. Unfortunately, she needs dialysis 3 times a week, and the prospect of getting in and out of a vehicle for transport 3 days a week was overwhelming. We have decided instead, to transfer the patient to a swing bed status, so she can undergo rehabilitation here, and then can get to dialysis without getting into a vehicle. Otherwise, the patient denies fever or chills, headaches or dizziness, chest pain or palpitations or shortness of breath. She denies cough abdominal pain, nausea or vomiting or diarrhea, or dysuria. on exam, she is sitting in a chair, in no acute distress. Neck is supple without obvious lymphadenopathy or JVD. Cardiac exam shows regular rate and rhythm. Lungshave a few crackles at the bases. Abdomen soft and nontender. Extremities show no significant edema. Left shoulder is held in place with a sling. assessment and plan: #1. Multiple fractures, including her left arm and left hip and pelvis. -She will be discharged to rehabilitation today, to continue her complicated rehabilitation regimen to try to heal all of her fractures. -Continue by mouth Dilaudid, tramadol, Tylenol as needed for pain. -per Dr. Boyce: pod 6 s/p left hip gamma nail. left proximal humerus fracture non-operative treatment NWB LUE, NWB LLE but ok to stand and pivot for transfers ok to come out of the sling for rom of the elbow, wrist, fingers take of mckayla wrap over arm at least once per day to allow skin to breath ok for rehab when ok per medicine f/u in office in 10-14 days. #2. Probable recent mild cardiac event. -The patient has remained stable clinically and on telemetry. We will continue with aspirin and Plavix, plus statin and beta trinity. #3. Hypertension. -She will continue her complicated medical regimen, which is generally managed by nephrology. #4.End-stage renal disease. Managed by nephrology with dialysis. #5. Hyponatremia. This has improved. #6. DVT prophylaxis:The patient has been maintained on subcutaneous heparin, and addition to plavix and aspirin. We may want to consider discontinuing the heparin at some point. #7. CODE STATUS: Full code. Discharge diagnosis: left hip, lefthumerus, and pelvis fractures. Hyponatremia. ICU psychosis. Secondary discharge diagnosis: end-stage renal disease. -Intraoperative cardiac ischemia. - Time Spent with Patient Total time spent providing and/or coordinating discharge services: Greater than 30 minutes (reater than 30 minutes was spent today, interviewing and examining the patient, discussing plan of care with her family, reviewing the plan with staff, and writing orders.) Medical - DS: Exam - Constitutional Vitals: Vital Signs Temp Pulse Resp BP BP BP Pulse Ox 01/25/17 04:00 97.8 F 12 132/65 99 01/25/17 00:00 97.3 F L 16 114/58 97 01/24/17 20:00 97.9 F 18 145/49 99 01/24/17 16:00 97.8 F 18 105/46 95 01/24/17 12:03 97.9 F 108 H 139/100 01/24/17 12:00 97.2 F L 20 139/72 93 Intake and Output 01/24/17 01/25/17 01/25/17 21:59 05:59 13:59 Intake Total 600 / 600 360 / 360 240 / 240 Balance 600 / 600 360 / 360 240 / 240 Intake: Oral 600 / 600 360 / 360 240 / 240 Other: Meal Dinner Percent of Meal Consumed 50% 25% Feeding Ability Independent Assist with Tray Set Up # Voids 1 # Bowel Movements 2 Weight 117 lb 6.4 oz Medical - DS: Data Labs on day of discharge: Labs from last 24 hours 01/25/17 01/25/17 01/24/17 04:16 04:16 23:40 WBC 11.5 H RBC 3.88 L Hgb 11.6 L Hct 35.3 L MCV 91.2 MCH 29.9 MCHC 32.8 RDW 16.2 H Plt Count 201 MPV 8.7 Gran % 82.1 H Lymph % (Auto) 9.8 L [place] % (Auto) 6.6 Eos % (Auto) 0.8 Baso % (Auto) 0.7 Gran # 9.4 H Lymph # 1.1 L [place] # 0.8 Eos # 0.1 Baso # 0.1 Sodium 137 TNP Potassium 3.4 TNP Chloride 94 L TNP Carbon Dioxide 29 TNP Anion Gap 14.0 TNP BUN 16 TNP Creatinine 2.8 H TNP GFR Calculation 15 TNP Glucose 175 H TNP Uric Acid 2.4 L TNP Calcium 7.5 L TNP Phosphorus 1.9 L TNP Magnesium 2.2 TNP Total Bilirubin 0.6 TNP Direct Bilirubin 0.2 TNP GGT 47 H TNP AST 43 H TNP ALT 38 TNP Alkaline Phosphatase 135 H TNP Lactate Dehydrogenase 318 H TNP Total Protein 5.5 L TNP Albumin 3.0 L TNP Globulin 2.5 TNP Albumin/Globulin Ratio 1.2 TNP Triglycerides 187 H TNP blood cultures from January [address] showed mild chronic changes consistent with age. Medical - DS: A/P - Patient/Caregiver Discharge Instructions Activity: as per physical therapy, increase activity as tolerated Diet: Renal/Consistent Carbs Other Amb Orders: OT Discharge Order Location: Determined By Patient Physical Therapy at Discharge - General Location: Determined By Patient - Follow up Plan Disposition: [facility] Swing Bed Prognosis: Good Rehab Potential: Good I certify that the patient requires SNF services: Yes Overall status at discharge: patient is progressing back to baseline Medical - DS: Qual - VTE Deep Vein Thrombosis/Pulmonary Embolism Present on Admission: No
== END 2017-01-25 11:39 | disposition other institution (70) | DRG 956 ==
LOC: ICU 06:45 → SUATTDRO 06:45 → ICU 01-23 08:30
PROVIDERS: ADMIT Internal Medicine; ATTEND Internal Medicine

== ENCOUNTER 2017-01-25 11:40 | Inpatient (IN) ==
[2017-01-25] MEDS ORDERED: LORazepam 2 MG/ML VIAL IV PRN (14:25)
[2017-01-25] MEDS ORDERED: cloNIDine HCL 0.1 MG TABLET PO PRN (14:25)
[2017-01-25] MEDS ORDERED: ACETAMINOPHEN 325 MG TABLET PO PRN (14:25)
[2017-01-25] MEDS: cloNIDine HCL 0.1 MG TABLET PO SCH (15:39)
[2017-01-25] MEDS: HYDROmorphone 2 MG/ML SYRINGE IV PRN ×2 (15:59→19:47)
[2017-01-25] MEDS: 0.9 % SODIUM CHLORIDE 10 ML SYRINGE IV SCH ×2 (16:03→20:00)
[2017-01-25] MEDS: SEVELAMER 800 MG TABLET PO SCH (17:56)
[2017-01-25] MEDS ORDERED: HEPARIN 5,000 UNIT/ML VIAL SQ SCH (21:00)
[2017-01-25] MEDS: traMADol HCL/ACETAMINOPHEN 1 TAB TABLET PO SCH ×2 (21:40→21:52)
[2017-01-25] MEDS: DOCUSATE SODIUM 100 MG CAPSULE PO SCH (21:40)
[2017-01-25] MEDS: ATORVASTATIN 20 MG TABLET PO SCH (21:41)
[2017-01-25] MEDS: HEPARIN 5,000 UNIT/ML VIAL SQ SCH (21:41)
[2017-01-25] MEDS: SENNOSIDES/DOCUSATE SODIUM 1 TAB TABLET PO SCH (21:41)
[2017-01-26] MEDS: MINOXIDIL 2.5 MG TABLET PO SCH ×2 (01:18→08:30)
[2017-01-26] MEDS: NADOLOL 40 MG TABLET PO SCH ×3 (01:18→21:26)
[2017-01-26] MEDS: LISINOPRIL 20 MG TABLET PO SCH ×3 (01:19→21:34)
[2017-01-26] MEDS: cloNIDine HCL 0.1 MG TABLET PO SCH ×3 (01:21→14:44)
[2017-01-26 06:20] LABS: Basophils # (Auto) 0 K/mcL (0.0-0.3); Basophils % (Auto) 0.1 % (0.0-2.0); Eosinophils # (Auto) 0.5 K/mcL (0.0-0.7); Eosinophils % (Auto) 4.2 % (0.0-7.0); Granulocytes % (Auto) 82.6 % (38.0-78.0); Lymphocytes # (Auto) 1.2 K/mcL (1.5-4.8); Mean Cell Volume 90.2 fL (80.0-100.0); Mean Corpuscular HGB Conc 33.3 g/dL (31.0-36.0); Monocytes # (Auto) 0.5 K/mcL (0.1-0.9); Monocytes % (Auto) 4.1 % (1.0-9.0); Platelet Count 178 K/mcL (140-440); RBC 3.59 M/mcL (4.00-5.20); Red Cell Distribution Width 15.9 % (11.5-14.5)
[2017-01-26 06:36] LABS: ALT/SGPT 34 U/l (0-40); Albumin 2.8 gm/dL (3.2-5.2); Albumin/Globulin Ratio 1.1 (1.0-2.3); Alkaline Phosphatase 153 U/L (39-117); Blood Urea Nitrogen 28 mg/dl (8-23)
[2017-01-26] MEDS ORDERED: DEXTROSE 50% 50 ML VIAL IV PRN (07:49)
[2017-01-26] MEDS: 0.9 % SODIUM CHLORIDE 10 ML SYRINGE IV SCH ×3 (08:03→22:26)
[2017-01-26] MEDS: CLOPIDOGREL 75 MG TABLET PO SCH (08:08)
[2017-01-26] MEDS: PANTOPRAZOLE 40 MG PACKET PO SCH (08:08)
[2017-01-26] MEDS: ASPIRIN 81 MG TAB.CHEW PO SCH (08:09)
[2017-01-26] MEDS: LEVOTHYROXINE 100 MCG TABLET PO SCH (08:09)
[2017-01-26] MEDS: DOCUSATE SODIUM 100 MG CAPSULE PO SCH ×2 (08:09→21:32)
[2017-01-26] MEDS: HEPARIN 5,000 UNIT/ML VIAL SQ SCH ×2 (08:09→21:31)
[2017-01-26] MEDS: SERTRALINE 50 MG TABLET PO SCH (08:17)
[2017-01-26] MEDS: SEVELAMER 800 MG TABLET PO SCH ×3 (08:17→18:00)
[2017-01-26] MEDS: VITAMIN B COMPLEX 1 CAPSULE PO SCH (08:17)
[2017-01-26] MEDS: POLYETHYLENE GLYCOL 3350 17 GM PACKET PO SCH (08:17)
[2017-01-26] MEDS: TORSEMIDE 10 MG TABLET PO SCH (08:17)
[2017-01-26] MEDS: traMADol HCL/ACETAMINOPHEN 1 TAB TABLET PO SCH ×2 (08:17→21:33)
[2017-01-26] MEDS: HYDROmorphone 2 MG/ML SYRINGE IV PRN (10:20)
[2017-01-26] MEDS: INSULIN LISPRO 1 UNIT/0.01 ML UNIT SQ SCH ×3 (11:41→21:10)
[2017-01-26] MEDS: HYDROmorphone 2 MG TABLET PO PRN (12:48)
--- NOTE | 2017-01-26 13:11 | Internal Med History&Physical ---
Medical - H&P: HPI Patient information: Note initiated : 01/26/17 at 1:02 pm Service Date, if different from initiated Date: [] Patient: Debra Wolff 81 y/o F admitted on 01/25/17 for Hip Fracture, Shoulder Fracture. Chief Complaint: [] History of present illness: Ms. Wolff is a 81 year old female who [facility] - January 25, 2017, after a fall in which she sustained multiple fractures. She was discharged yesterday to swing bed status She was medically stable for transfer to a rehabilitation facility, but is still havingintermittent severe bouts of pain due to her left arm fracture and left leg fractures, which would have made getting in and out of a vehicle to transport to and from dialysis 3 times a week quite a challenge. the cause of her fall was a bit unclear, but it is likely related to the fact that her blood sugar was 30just after her fall. She was previously maintained on glimipiride for her type 2 diabetes. she did undergo a left hip gamma nail placement by Dr. Boyce.her pelvis and arm fractures are being managed conservatively. she also had apparent EKG changes intraoperatively, and troponin did bump to 0.28. Telephone consultation was obtained with cardiology, and it is assumed she had a minor cardiac ischemic event. She has been maintained on aspirin and Plavix, statin and beta trinity, and has otherwise remained clinically asymptomatic. She does have a history of atrial fibrillation but remains off Coumadin, as she was recently started on Plavix and aspirin for presumed coronary disease. She did have anbrief episode of hyponatremia, but this has been corrected with dialysis. This morning, she is a little upset,as she says her pain medication didn't really kick in before physical therapy. The left arm exercises today she found to be excruciatingly painful. Otherwise, she has generally been doing well. she denies Fever or chills, headaches or dizziness new eye or ear symptoms, sore throat or cough. She denies chest pain or palpitations shortness of breath or wheezing, abdominal pain, nausea or vomiting, diarrhea or constipation, dysuria. She makes little urine since she started dialysis. past medical history: End-stage renal disease, on dialysis since 2014, managed by Dr. Gilbert Type 2 diabetes left upper extremity fistula Hypertension Anxiety Hyperlipidemia current medication--as noted below. Allergies include shellfish, and sulfa antibiotics family history is notable for coronary disease, myocardial infarction in her father and her son Social history the patient lives with her in [place]. She quit smoking in 1974. She drinks alcohol rarely and does not use drugs. Medical - H&P: Meds Home Medications Medication Instructions Recorded Confirmed Type Acetaminophen [Tylenol] 1,000 mg PO Q4-6HP PRN 01/18/17 01/25/17 History Aspirin 81 mg PO DAILY 01/18/17 01/25/17 History Atorvastatin Calcium 80 mg PO HS 01/18/17 01/25/17 History Calcium Carbonate [Tums] 500 mg CHEWED Q4HP PRN 01/18/17 01/25/17 History Clopidogrel Bisulfate [Plavix] 75 mg PO DAILY 01/18/17 01/25/17 History Docusate Sodium [Colace] 100 mg PO DAILY 01/18/17 01/25/17 History Levothyroxine Sodium [Levoxyl] 100 mcg PO QAMCC 01/18/17 01/25/17 History Lisinopril [Zestril] 20 mg PO BID 01/18/17 01/25/17 History Minoxidil 2.5 mg PO BID 01/18/17 01/25/17 History Nadolol [Corgard] 80 mg PO BID 01/18/17 01/25/17 History Sertraline HCl [Zoloft] 75 mg PO DAILY 01/18/17 01/25/17 History Sevelamer [Renvela] 1,600 mg PO TIDCC 01/18/17 01/25/17 History Torsemide 100 mg PO DAILY 01/18/17 01/25/17 History Vit B Cmplx 3/FA/Vit C/Biotin 1 tab PO DAILY 01/18/17 01/25/17 History [Yamile-Luigi Rx Tablet] 0.9 % Sodium Chloride [Saline 10 ml IV Q8 syringe 01/25/17 01/25/17 Rx Flush] Acetaminophen [Tylenol] 650 mg PO Q4-6HP PRN #0 tablet 01/25/17 01/25/17 Rx Docusate Sodium [Colace] 100 mg PO BID capsule 01/25/17 01/25/17 Rx HYDROmorphone [Dilaudid] 1 - 2 mg IV Q4HP PRN #0 syringe 01/25/17 01/25/17 Rx HYDROmorphone [Dilaudid] 2 mg PO Q4HP PRN #0 tablet 01/25/17 01/25/17 Rx Heparin 5,000 unit SQ Q12 vial 01/25/17 01/25/17 Rx LORazepam [Ativan] 1 mg IV Q2-4HP PRN #0 vial 01/25/17 01/25/17 Rx Ondansetron [Zofran] 4 mg IV Q4-6HP PRN #0 vial 01/25/17 01/25/17 Rx Pantoprazole [Protonix] 40 mg IV QAMAC vial 01/25/17 01/25/17 Rx Polyethylene Glycol 3350 [Miralax] 17 gm PO DAILY packet 01/25/17 01/25/17 Rx Sennosides/Docusate Sodium [Senna 1 tab PO HS tablet 01/25/17 01/25/17 Rx Plus Tablet] cloNIDine HCL [Catapres] 0.1 mg PO Q4HP PRN #0 tablet 01/25/17 01/25/17 Rx cloNIDine HCL [Catapres] 0.2 mg PO TID tablet 01/25/17 01/25/17 Rx traMADol HCL/ACETAMINOPHEN 1 tab PO BID tablet 01/25/17 01/25/17 Rx [Ultracet] Allergies Allergy/AdvReac Type Severity Reaction Status Date / Time shellfish derived Allergy Severe Anaphylaxis Verified 01/18/17 08:15 Sulfa (Sulfonamide Allergy Mild Rash Verified 01/18/17 08:13 Antibiotics) Medical - H&P: Exam - Constitutional Vitals: Temp Pulse Resp BP Pulse Ox 98.6 F 66 12 156/65 96 01/26/17 07:48 01/26/17 08:00 01/26/17 08:00 01/26/17 07:48 01/26/17 08:00 Exam: on exam, she is a small framed elderly white female who still appears a bit upset about her level of pain. Head: Normocephalic, atraumatic. Eyes: PERRLA, EOMI, anicteric. Ears: TMs are clear. pharynx is clear. Neck: Is supple without obvious lymphadenopathy, JVD, thyromegaly, bruits. cardiac exam shows regular rate and rhythm, without obvious murmurs, rubs, gallops. Lungs: Clear to auscultation. abdomen: Is soft and nontender, without obvious masses or tenderness. Extremities:Show no cyanosis, clubbing, edema. Her left upper armis held close in a sling.Skin exam does not show any worrisome lesions.pulses in her feet are intact, with good vascular refill. neurologic. Patient is alert and oriented 3, and perhaps mildly anxious. Exam is grossly nonfocal, though not tested in detail. Medical - H&P: Reslt - Labs CBC & Chem 7: 01/26/17 04:45 01/26/17 04:45 Labs: Short CBC 01/26/17 Range/Units 04:45 WBC 13.1 H (4.5-11.0) K/mcL Hgb 10.8 L (12.0-15.0) g/dL Hct 32.3 L (36.0-48.0) % Plt Count 178 (140-440) K/mcL BMP 01/26/17 04:45 Sodium 133 Potassium 3.9 Chloride 90 L Carbon Dioxide 26 BUN 28 H Creatinine 4.0 H Glucose 167 H Calcium 7.2 L Liver Function 01/26/17 Range/Units 04:45 Total Bilirubin 0.5 (0.0-1.0) mg/dL AST 38 H (0-37) U/l ALT 34 (0-40) U/l Alkaline Phosphatase 153 H (39-117) U/L Albumin 2.8 L (3.2-5.2) gm/dL blood cultures from January [address] showed mild chronic changes consistent with age. January 21, 2017: Left elbow x-ray shows soft tissue swelling but no fracture eKG from January 20, 2017: Shows atrial fibrillationwith rapid ventricular response chocardiogram was a technically difficult study, but showed aortic root sclerosis. Aortic regurgitation, mild to moderate LVH with normal systolic performance, ejection fraction 75%. January 18, 2017:CT scan of the left shoulder shows multi bipartite fracture of the surgical neck of the humerus extending into the tuberosities CT scan of the left hip shows fractures of the anterior column of the left ischium and left inferior pubic ramus and left pubic bone CT scan of the abdomen shows atherosclerosis of the aorta without aneurysm, fracture of the left sacrum, left ischium, left pubic bone, diverticulosis Medical - H&P: A/P (1) Left ischial fracture Current visit: Yes Status: Acute (2) Fracture of left inferior pubic ramus Current visit: Yes Status: Acute (3) Left humeral fracture Current visit: Yes Status: Acute (4) Closed left hip fracture Current visit: Yes Status: Acute (5) Atrial fib/flutter, transient Current visit: No Status: Chronic (6) End stage renal disease on dialysis Current visit: No Status: Acute (7) Hypertension Current visit: No Status: Chronic (8) Non-ST elevation myocardial infarction (NSTEMI), type 2 Current visit: No Status: Acute (9) Pain, postoperative, acute Current visit: No Status: Acute (10) Shoulder fracture, left Current visit: No Status: Acute - Narrative A/P Narrative: #1. Multiple fractures, including her left arm and left hip and pelvis. -admit to swing bed status, for ongoing physical therapy and pain management and access to dialysis. -i reviewed with her today, that she can certainlyreturn away physical therapy or procedures until her pain is controlled, and encouraged her to take her pain medicines at least 30 minutes prior to physical therapy.-Continue when necessary Dilaudid, tramadol, Tylenol. -per Dr. Boyce: pod 6 s/p left hip gamma nail. left proximal humerus fracture non-operative treatment NWB LUE, NWB LLE but ok to stand and pivot for transfers ok to come out of the sling for rom of the elbow, wrist, fingers take of mckayla wrap over arm at least once per day to allow skin to breath -the patient's family was concerned that she had not had a left shoulder x-ray for over a week, so I did contact Dr. Boyce, who suggested we order a left shoulder series, which he will review this evening. -f/u in office in 10-14 days. #2. Probable recent mild cardiac event. - We will continue with aspirin and Plavix, plus statin and beta trinity. -it is suggested that the patient have a follow-up nuclear stress test after discharge, when she could more easily undergo such testing. #3. Hypertension. -She will continue her complicated medical regimen, which is generally managed by nephrology. #4.End-stage renal disease. Managed by nephrology with dialysis. #5. Hyponatremia. This has improved. #6. DVT prophylaxis:The patient has been maintained on subcutaneous heparin, and addition to plavix and aspirin. We may want to consider discontinuing the heparin at some point. #7. CODE STATUS: Full code. #8. Leukocytosis. It is not entirely clear why her white blood cell count has bumped a bit. She is not reporting any symptoms of infection.-Recheck a urinalysis. #9. Type 2 diabetes. It appears she was having hypoglycemia at home.gliamipiride is on hold. monitor Accu-Cheks.cover with insulin if needed. approximately 40 minutes was spent today, reviewing the patient's test results, interviewing and examining her,discussing overall plan of care for her various diagnoses with her as well as with her family and staff, contacting Dr. Boyce of orthopedics, and writing orders. Medical - H&P: Qual - Stroke Symptom Onset Unknown: No - VTE Deep Vein Thrombosis/Pulmonary Embolism Present on Admission: No
--- NOTE | 2017-01-26 14:12 | Nephrology Progress Note ---
Subjective Patient information: Note initiated : 01/26/17 at 2:10 pm Service Date, if different from initiated Date: [] Patient: Debra Wolff 81 y/o F admitted on 01/25/17 for Hip Fracture, Shoulder Fracture. Chief Complaint: Pain when she ambulates or do PT. Otherwise no problems. Objective - Vital Signs Vital signs: Vital Signs Temp Pulse Pulse Resp BP Pulse Ox 01/26/17 08:00 60 66 12 96 01/26/17 07:48 98.6 F 12 156/65 96 01/26/17 04:08 131/72 01/26/17 01:15 149/72 01/25/17 21:41 102/52 01/25/17 19:01 98.3 F 60 16 119/70 98 Intake and Output 01/26/17 01/26/17 01/26/17 05:59 13:59 21:59 Intake Total 340 / 340 Balance 340 / 340 Intake: Oral 340 / 340 Other: Meal Lunch Percent of Meal Consumed 25% Feeding Ability Independent Weight 111 lb 6.4 oz Patient Weight 01/27/17 05:59 Weight 111 lb 6.4 oz Intake & Output: Intake & Output 01/26/17 01/26/17 01/26/17 05:59 13:59 21:59 Intake Total 340 / 340 Balance 340 / 340 Weight 111 lb 6.4 oz Intake: Oral 340 / 340 Other: Meal Lunch Percent of Meal Consumed 25% Feeding Ability Independent - General Appearance General appearance: appears started age EENT: ATNC Neck: no JVD Respiratory: no kyphosis Cardiology: no murmurs Gastrointestinal: normoactive bowel sounds Integumentary: no rash Musculoskeletal: no deformities - Lab 01/26/17 04:45 01/26/17 04:45 Most recent lab results Calcium 7.2 mg/dl (8.6-10.4) L 01/26/17 04:45 Assessment and Plan (1) End stage renal disease on dialysis ESRD. WIll have dialysis today or tomorrow. Orders written. HTN Blood pressure adequately controlled. DM. check blood sugar AC and HS and ss. Status: Acute
--- NOTE | 2017-01-26 17:40 | XRay Report ---
CLINICAL INFORMATION: Follow comminuted fracture of the proximal humerus COMPARISON: Shoulder CT from 01/18/2017 FINDINGS: A mildly comminuted fracture through the surgical neck of humerus is again seen. There is mild broad displacement which is unchanged. No evidence yet of osseous callus formation. The articular surface humeral head is directed posteriorly away from the glenoid surface compatible with rotary subluxation. This may compromise function. Acromioclavicular joint shows mild degeneration. IMPRESSION: 1. Mildly comminuted fracture of the surgical neck with mild displacement similar to previous CT. No evidence of osseous callus 2. Rotary subluxation of the glenohumeral joint. Interpreted and Authenticated by: Jacinto Rivera 01/26/17
[2017-01-26] MEDS: ATORVASTATIN 20 MG TABLET PO SCH (21:26)
[2017-01-26] MEDS: SENNOSIDES/DOCUSATE SODIUM 1 TAB TABLET PO SCH (21:32)
[2017-01-27] MEDS: NADOLOL 40 MG TABLET PO SCH ×3 (01:15→21:34)
[2017-01-27] MEDS: MINOXIDIL 2.5 MG TABLET PO SCH ×3 (01:15→21:30)
[2017-01-27] MEDS: HYDROmorphone 2 MG TABLET PO PRN ×3 (01:17→18:47)
[2017-01-27] MEDS: cloNIDine HCL 0.1 MG TABLET PO SCH ×4 (01:19→21:31)
[2017-01-27] MEDS: 0.9 % SODIUM CHLORIDE 10 ML SYRINGE IV SCH ×2 (05:17→16:14)
--- NOTE | 2017-01-27 08:06 | Orthopedic Progress Note ---
Subjective Patient information: Note initiated : 01/27/17 at 8:03 am Service Date, if different from initiated Date: [] Patient: Debra Wolff 81 y/o F admitted on 01/25/17 for Hip Fracture, Shoulder Fracture. Chief Complaint: [] Interval history: doing well improving daily Objective Vital signs: Vital Signs Temp Pulse Resp BP Pulse Ox 01/26/17 20:00 98.3 F 68 18 114/67 97 01/26/17 12:15 95 Intake and Output 01/26/17 01/27/17 01/27/17 21:59 05:59 13:59 Intake Total 300 / 300 600 / 600 Output Total 120 / 120 Balance 300 / 300 600 / 600 -120 / -120 Intake: Oral 300 / 300 600 / 600 Output: Void Amount 120 / 120 Other: Meal Dinner Percent of Meal Consumed 25% Weight 115 lb Intake & Output: Intake & Output 01/26/17 01/27/17 01/27/17 21:59 05:59 13:59 Intake Total 300 / 300 600 / 600 Output Total 120 / 120 Balance 300 / 300 600 / 600 -120 / -120 Weight 115 lb Intake: Oral 300 / 300 600 / 600 Output: Void Amount 120 / 120 Other: Meal Dinner Percent of Meal Consumed 25% Incision: Yes clean and dry Incision clean and dry: Yes Dressing: Yes clean, Yes dry, Yes intact Weight bearing status: non Neurological exam IM: Yes alert, Yes oriented X3, Yes motor sensory intact, Yes neurovascular intact Extremities exam IM: Yes Foot pink and warm, Yes neurovascular intact - Labs CBC & BMP: 01/26/17 04:45 01/26/17 04:45 Labs: 01/26/17 04:45 Hgb 10.8 L Hct 32.3 L Assessment and Plan (1) Closed left hip fracture s/p gamma nail left hip and non displaced acetabular fracture doing well nwb but ok for transfers f/u in office 10-14 days s/p left proximal humerus fx nwb sling no change on xrays f/u in office in 10-14 days for repeat xrays Status: Acute (2) Fracture of left inferior pubic ramus Status: Acute (3) Left humeral fracture Status: Acute
[2017-01-27] MEDS: HYDROmorphone 2 MG/ML SYRINGE IV PRN (09:37)
[2017-01-27] MEDS: PANTOPRAZOLE 40 MG PACKET PO SCH (09:57)
[2017-01-27] MEDS: TORSEMIDE 10 MG TABLET PO SCH (09:57)
[2017-01-27] MEDS: SEVELAMER 800 MG TABLET PO SCH ×3 (09:57→17:58)
[2017-01-27] MEDS: ASPIRIN 81 MG TAB.CHEW PO SCH (09:58)
[2017-01-27] MEDS: HEPARIN 5,000 UNIT/ML VIAL SQ SCH ×2 (09:58→21:34)
[2017-01-27] MEDS: SERTRALINE 50 MG TABLET PO SCH (09:58)
[2017-01-27] MEDS: VITAMIN B COMPLEX 1 CAPSULE PO SCH (09:58)
[2017-01-27] MEDS: traMADol HCL/ACETAMINOPHEN 1 TAB TABLET PO SCH ×2 (09:59→21:31)
[2017-01-27] MEDS: DOCUSATE SODIUM 100 MG CAPSULE PO SCH ×2 (09:59→21:31)
[2017-01-27] MEDS: POLYETHYLENE GLYCOL 3350 17 GM PACKET PO SCH (09:59)
[2017-01-27] MEDS: LEVOTHYROXINE 100 MCG TABLET PO SCH (09:59)
[2017-01-27] MEDS: LISINOPRIL 20 MG TABLET PO SCH ×2 (09:59→21:32)
[2017-01-27] MEDS: CLOPIDOGREL 75 MG TABLET PO SCH (09:59)
[2017-01-27] MEDS: INSULIN LISPRO 1 UNIT/0.01 ML UNIT SQ SCH ×4 (10:23→21:15)
[2017-01-27] MEDS: ONDANSETRON 4 MG/2 ML VIAL IV PRN (11:32)
[2017-01-27] MEDS: ATORVASTATIN 20 MG TABLET PO SCH (21:32)
[2017-01-27] MEDS: SENNOSIDES/DOCUSATE SODIUM 1 TAB TABLET PO SCH (21:32)
[2017-01-28 01:24] LABS: Appearance,Urine CLOUDY; Bacteria,Urine FEW /hpf (0); Bilirubin,Urine NEG (NEG); Color,Urine AMBER; Glucose,Urine (UA) 50 mg/dL (NEG); Leukocyte Esterase,Urine 75 /uL (NEG); Mucus,Urine FEW /hpf (0); Nitrate,Urine NEG (NEG); Protein,Urine >=500 mg/dL (NEG); Specific Gravity,Urine 1.019 (1.000-1.035); Urine Blood 0.03 mg/dL (<0.03); Urine Hyaline Cast 32 /lpf (0-2); Urine RBC 5 /hpf (0-1); Urine Squamous Epithelial Cell 48 /hpf (0-4); Urine Transitional Epi Cells 4 /hpf (0-2); Urine WBC 18 /hpf (0-4); Urobilinogen,Urine NEG (NEG)
[2017-01-28] MEDS: CALCIUM CARBONATE 500 MG TAB.CHEW CHEWED PRN ×2 (03:15→22:06)
[2017-01-28] MEDS: HYDROmorphone 2 MG TABLET PO PRN (03:16)
[2017-01-28] MEDS: 0.9 % SODIUM CHLORIDE 10 ML SYRINGE IV SCH ×4 (03:19→22:07)
[2017-01-28] MEDS: LISINOPRIL 20 MG TABLET PO SCH ×2 (07:15→21:03)
[2017-01-28] MEDS: PANTOPRAZOLE 40 MG PACKET PO SCH (07:15)
[2017-01-28] MEDS: cloNIDine HCL 0.1 MG TABLET PO SCH ×3 (07:15→21:03)
[2017-01-28] MEDS: LEVOTHYROXINE 100 MCG TABLET PO SCH (07:15)
[2017-01-28] MEDS: traMADol HCL/ACETAMINOPHEN 1 TAB TABLET PO SCH ×2 (08:14→21:04)
[2017-01-28] MEDS: INSULIN LISPRO 1 UNIT/0.01 ML UNIT SQ SCH ×4 (08:43→21:04)
[2017-01-28] MEDS: DOCUSATE SODIUM 100 MG CAPSULE PO SCH ×2 (09:28→21:04)
[2017-01-28] MEDS: VITAMIN B COMPLEX 1 CAPSULE PO SCH (09:28)
[2017-01-28] MEDS: CLOPIDOGREL 75 MG TABLET PO SCH (09:28)
[2017-01-28] MEDS: SEVELAMER 800 MG TABLET PO SCH ×3 (09:28→18:09)
[2017-01-28] MEDS: ASPIRIN 81 MG TAB.CHEW PO SCH (09:28)
[2017-01-28] MEDS: NADOLOL 40 MG TABLET PO SCH ×2 (09:29→21:06)
[2017-01-28] MEDS: POLYETHYLENE GLYCOL 3350 17 GM PACKET PO SCH (09:29)
[2017-01-28] MEDS: SERTRALINE 50 MG TABLET PO SCH (09:30)
[2017-01-28] MEDS: MINOXIDIL 2.5 MG TABLET PO SCH ×2 (09:30→21:06)
[2017-01-28] MEDS: TORSEMIDE 10 MG TABLET PO SCH (09:31)
[2017-01-28] MEDS: HEPARIN 5,000 UNIT/ML VIAL SQ SCH ×2 (09:38→21:03)
[2017-01-28] MEDS: ONDANSETRON 4 MG/2 ML VIAL IV PRN ×2 (10:09→21:11)
[2017-01-28 11:52] LABS: Basophils # (Auto) 0 K/mcL (0.0-0.3); Basophils % (Auto) 0.3 % (0.0-2.0); Eosinophils # (Auto) 0.2 K/mcL (0.0-0.7); Eosinophils % (Auto) 1.9 % (0.0-7.0); Granulocytes % (Auto) 69.1 % (38.0-78.0); Lymphocytes # (Auto) 1.2 K/mcL (1.5-4.8); Lymphocytes % (Auto) 10.7 % (15.5-49.0); Mean Cell Volume 89.6 fL (80.0-100.0); Mean Corpuscular HGB Conc 33.6 g/dL (31.0-36.0); Mean Corpuscular Hemoglobin 30.2 pg (26.0-34.0); Platelet Count 220 K/mcL (140-440); RBC 3.38 M/mcL (4.00-5.20); Red Cell Distribution Width 15.2 % (11.5-14.5)
[2017-01-28] MEDS: HYDROmorphone 2 MG/ML SYRINGE IV PRN (11:55)
--- NOTE | 2017-01-28 17:41 | Internal Med Progress Note ---
Medical - PN: Subj Patient information: Note initiated : 01/28/17 at 5:38 pm Service Date, if different from initiated Date: [] Patient: Debra Wolff 81 y/o F admitted on 01/25/17 for Hip Fracture, Shoulder Fracture. Chief Complaint: [] Interval history: 01/26/17: History of present illness: Ms. Wolff is a 81 year old female who [facility] - January [facility], [facility], after a fall in which she sustained multiple fractures. She was discharged yesterday to swing bed status She was medically stable for transfer to a rehabilitation facility, but is still havingintermittent severe bouts of pain due to her left arm fracture and left leg fractures, which would have made getting in and out of a vehicle to transport to and from dialysis 3 times a week quite a challenge. the cause of her fall was a bit unclear, but it is likely related to the fact that her blood sugar was 30just after her fall. She was previously maintained on glimipiride for her type 2 diabetes. she did undergo a left hip gamma nail placement by Dr. Boyce.her pelvis and arm fractures are being managed conservatively. she also had apparent EKG changes intraoperatively, and troponin did bump to 0.28. Telephone consultation was obtained with cardiology, and it is assumed she had a minor cardiac ischemic event. She has been maintained on aspirin and Plavix, statin and beta trinity, and has otherwise remained clinically asymptomatic. She does have a history of atrial fibrillation but remains off Coumadin, as she was recently started on Plavix and aspirin for presumed coronary disease. She did have anbrief episode of hyponatremia, but this has been corrected with dialysis. This morning, she is a little upset,as she says her pain medication didn't really kick in before physical therapy. The left arm exercises today she found to be excruciatingly painful. Otherwise, she has generally been doing well. she denies Fever or chills, headaches or dizziness new eye or ear symptoms, sore throat or cough. She denies chest pain or palpitations shortness of breath or wheezing, abdominal pain, nausea or vomiting, diarrhea or constipation, dysuria. She makes little urine since she started dialysis. 01/28/17: I was called by the nurse to see this patient's afternoon as she has had a fair amount of nausea today, and then had some vomiting just now. She also seems rather confused. She complained of increased pain this morning, so did not receive her pain medicines initially, but ate some crackers and took some IV Zofran. She subsequently received some IV Dilaudid for her pain. But it seems that she's had increasing nausea since then. She has not had a bowel movement for about 3 days now, according to nursing staff. On interview, the patient is a bit groggy. She denies subjective fever or chills, chest pain or palpitations, coughing or shortness of breath abdominal pain. She has had nausea and vomiting, but denies diarrhea. She denies dysuria but has decreased urine output related to renal failure. - Constitutional Vitals: Vital Signs Temp Pulse Resp BP Pulse Ox 97.9 F 63 18 133/71 98 01/28/17 07:03 01/28/17 15:27 01/28/17 07:03 01/28/17 15:27 01/28/17 15:27 Period Temp Pulse Resp BP Sys/Spence Pulse Ox Last 24 Hr 97.9 F-98.8 F 61-66 18-18 133-180/51-79 95-98 Intake and Output 01/28/17 01/28/17 01/28/17 05:59 13:59 21:59 Intake Total Output Total 401 / 401 / Balance -401 / -401 -25 / -25 Intake & Output: Intake & Output 01/28/17 01/28/17 01/28/17 05:59 13:59 21:59 Intake Total Output Total 401 / 401 / Balance -401 / -401 -25 / -25 Intake: Oral Output: Void Amount 25 / 25 # of times incontinent of 1 / 1 urine Emesis 400 / 400 Exam: on exam, she is sitting up in a chair, and her daughter is sitting with her. She is a little bit groggy, but her answers appear appropriate. Neck is supple without obvious lymphadenopathy. Cardiac exam shows regular rate and rhythm. Lungs are clear to auscultation. Abdomen is softwithout obvious tenderness. Extremities show no significant edema. Neurologic exam: Patient is groggy, but is awake enough to answer questions and appears appropriate. Motor exam appears grossly nonfocal. Medical - PN: Obj Da - Labs CBC & Chem 7: 01/28/17 11:10 01/26/17 04:45 Labs: Abnormal Lab Results 01/28/17 01/28/17 01/26/17 11:10 00:37 04:45 WBC RBC 3.38 L Hgb 10.2 L Hct 30.3 L RDW 15.2 H Gran % Lymph % (Auto) 10.7 L [place] % (Auto) 18.0 H Gran # Lymph # 1.2 L [place] # 2.0 H Chloride 90 L Anion Gap 17.0 H BUN 28 H Creatinine 4.0 H Glucose 167 H Calcium 7.2 L AST 38 H Alkaline Phosphatase 153 H Total Protein 5.4 L Albumin 2.8 L Urine Protein >=500 A Urine Glucose (UA) 50 A Urine Occult Blood 0.03 A Ur Leukocyte Esterase 75 A Urine RBC 5 H Urine WBC 18 H Ur Squamous Epith Cells 48 H Ur Transition Epith Cell 4 H Urine Bacteria Few A Hyaline Casts 32 H 01/26/17 04:45 WBC 13.1 H RBC 3.59 L Hgb 10.8 L Hct 32.3 L RDW 15.9 H Gran % 82.6 H Lymph % (Auto) 9.0 L [place] % (Auto) Gran # 10.8 H Lymph # 1.2 L [place] # Chloride Anion Gap BUN Creatinine Glucose Calcium AST Alkaline Phosphatase Total Protein Albumin Urine Protein Urine Glucose (UA) Urine Occult Blood Ur Leukocyte Esterase Urine RBC Urine WBC Ur Squamous Epith Cells Ur Transition Epith Cell Urine Bacteria Hyaline Casts blood cultures from January [address] showed mild chronic changes consistent with age. January 21, 2017: Left elbow x-ray shows soft tissue swelling but no fracture eKG from January 20, 2017: Shows atrial fibrillationwith rapid ventricular response chocardiogram was a technically difficult study, but showed aortic root sclerosis. Aortic regurgitation, mild to moderate LVH with normal systolic performance, ejection fraction 75%. January 18, 2017:CT scan of the left shoulder shows multi bipartite fracture of the surgical neck of the humerus extending into the tuberosities CT scan of the left hip shows fractures of the anterior column of the left ischium and left inferior pubic ramus and left pubic bone CT scan of the abdomen shows atherosclerosis of the aorta without aneurysm, fracture of the left sacrum, left ischium, left pubic bone, diverticulosis Meds: Medications Acetaminophen (Tylenol) 650 mg PO Q4-6HP PRN PRN Reason: PAIN/FEVER > 101 Aspirin (Aspirin) 81 mg PO DAILY [facility] Last Admin: 01/28/17 09:28 Dose: 81 mg Atorvastatin Calcium (Lipitor) 80 mg PO HS [facility] Last Admin: 01/27/17 21:32 Dose: 80 mg Calcium Carbonate/Glycine (Tums) 500 mg CHEWED Q4HP PRN PRN Reason: Dyspepsia Last Admin: 01/28/17 03:15 Dose: 500 mg Clonidine HCl (Catapres) 0.1 mg PO Q4HP PRN PRN Reason: Hypertension Clonidine HCl (Catapres) 0.2 mg PO TID [facility] Last Admin: 01/28/17 15:26 Dose: 0.2 mg Clopidogrel Bisulfate (Plavix) 75 mg PO DAILY [facility] Last Admin: 01/28/17 09:28 Dose: 75 mg Dextrose (Dextrose 50%) 0 ml IV UD PRN PRN Reason: Hypoglycemia Diagnostic Test (Pha) (Accu-Chek) 1 each FS [facility] Last Admin: 01/28/17 16:47 Dose: 1 each Docusate Sodium (Colace) 100 mg PO BID [facility] Last Admin: 01/28/17 09:28 Dose: 100 mg Heparin Sodium (Porcine) (Heparin) 5,000 unit SQ Q12 [facility] Last Admin: 01/28/17 09:38 Dose: 5,000 unit Hydromorphone HCl (Dilaudid) 2 mg PO Q4HP PRN PRN Reason: Pain Last Admin: 01/28/17 03:16 Dose: 2 mg Hydromorphone HCl (Dilaudid) 0 mg IV Q4HP PRN PRN Reason: Pain Last Admin: 01/28/17 11:55 Dose: 1 mg Insulin Human Lispro (Humalog) 0 unit SQ [facility] PRN Reason: Protocol Last Admin: 01/28/17 12:08 Dose: Not Given Levothyroxine Sodium (Synthroid) [address] [facility] Last Admin: 01/28/17 07:15 Dose: 100 mcg Lisinopril (Zestril) 20 mg PO BID [facility] Last Admin: 01/28/17 07:15 Dose: 20 mg Lorazepam (Ativan) 1 mg IV Q2-4HP PRN PRN Reason: ANXIETY/SEDATION Minoxidil (Minoxidil) 2.5 mg PO BID [facility] Last Admin: 01/28/17 09:30 Dose: 2.5 mg Nadolol (Corgard) 80 mg PO BID [facility] Last Admin: 01/28/17 09:29 Dose: 80 mg Ondansetron HCl (Zofran) 4 mg IV Q4-6HP PRN PRN Reason: Nausea And Vomiting Last Admin: 01/28/17 10:09 Dose: 4 mg Pantoprazole Sodium (Protonix) 40 mg PO QAMAC [facility] Last Admin: 01/28/17 07:15 Dose: 40 mg Polyethylene Glycol (Miralax) 17 gm PO DAILY [facility] Last Admin: 01/28/17 09:29 Dose: 17 gm Senna/Docusate Sodium (Senna Plus Tablet) 1 tab PO HS [facility] Last Admin: 01/27/17 21:32 Dose: 1 tab Sertraline HCl (Zoloft) 75 mg PO DAILY [facility] Last Admin: 01/28/17 09:30 Dose: 75 mg Sevelamer Carbonate (Renvela) 1,600 mg PO TIDCC [facility] Last Admin: 01/28/17 12:09 Dose: Not Given Sodium Chloride (Saline Flush) 10 ml IV Q8 [facility] Last Admin: 01/28/17 15:26 Dose: 10 ml Torsemide (Demadex) 100 mg PO DAILY [facility] Last Admin: 01/28/17 09:31 Dose: 100 mg Tramadol/Acetaminophen (Ultracet) 1 tab PO BID [facility] Last Admin: 01/28/17 08:14 Dose: 1 tab Vitamin B Complex (Vitamin B Complex) 1 cap PO DAILY [facility] Last Admin: 01/28/17 09:28 Dose: 1 cap Medical - PN: A/P - Time Spent With Patient Total time spent is greater than 50% in coordination of care (as documented) at patient's floor/unit and/or counseling patient: (1) Left ischial fracture Status: Acute Current Visit: Yes (2) Fracture of left inferior pubic ramus Status: Acute Current Visit: Yes (3) Left humeral fracture Status: Acute Current Visit: Yes (4) Closed left hip fracture Status: Acute Current Visit: Yes (5) Atrial fib/flutter, transient Status: Chronic Current Visit: No (6) End stage renal disease on dialysis Status: Acute Current Visit: No (7) Hypertension Status: Chronic Current Visit: No (8) Non-ST elevation myocardial infarction (NSTEMI), type 2 Status: Acute Current Visit: No (9) Pain, postoperative, acute Status: Acute Current Visit: No (10) Shoulder fracture, left Status: Acute Current Visit: No - Narrative A/P Narrative: #1. Mild confusion this afternoon, following an episode of nausea and vomiting. - -we will check chest and abdomen x-rays, looking for signs of significant constipation and or aspiration pneumonia. If those are unrevealing, I will probably check some blood studies to include cultures and possible troponin, BNP , d-dimer, EKG. This was reviewed with the patient as well as with her daughter. #1. Multiple fractures, including her left arm and left hip and pelvis. -admitted to swing bed status, for ongoing physical therapy and pain management and access to dialysis. .-Continue when necessary Dilaudid, tramadol, Tylenol. -per Dr. Boyce: pod 6 s/p left hip gamma nail. left proximal humerus fracture non-operative treatment NWB LUE, NWB LLE but ok to stand and pivot for transfers ok to come out of the sling for rom of the elbow, wrist, fingers take of mckayla wrap over arm at least once per day to allow skin to breath -the patient's family was concerned that she had not had a left shoulder x-ray for over a week, so I did contact Dr. Boyce, who suggested we order a left shoulder series, which he will review this evening. -f/u in office in 10-14 days. #2. Probable recent mild cardiac event. - We will continue with aspirin and Plavix, plus statin and beta trinity. -it is suggested that the patient have a follow-up nuclear stress test after discharge, when she could more easily undergo such testing. #3. Hypertension. -She will continue her complicated medical regimen, which is generally managed by nephrology. #4.End-stage renal disease. Managed by nephrology with dialysis. #5. Hyponatremia. This has improved. #6. DVT prophylaxis:The patient has been maintained on subcutaneous heparin, and addition to plavix and aspirin. We may want to consider discontinuing the heparin at some point. #7. CODE STATUS: Full code. #8. Leukocytosis. this actually looked better on this morning's labs. #9. Type 2 diabetes. It appears she was having hypoglycemia at home.gliamipiride is on hold. Accu- Cheks are currently ranging from [id number]. monitor Accu-Cheks.cover with insulin if needed. this visit is taken approximately 25 minutes so far today, to check on her briefly this morning, and then again this afternoon, review plan of care with both nursing staff as well as with the patient and her daughter, and write orders. X-rays will be reviewed once they are available, and then further decisions about labs will be made. addendum: Chest x-ray shows some mild right base atelectasis, and abdominal film looks okay. she has not had a bowel movement in 3 days, so I am going to give her a dose of milk of magnesia. I will also check screening troponin and BNP, given her intraoperative cardiac issues. Medical - PN: Qual - Stroke Symptom Onset Unknown: No - VTE Deep Vein Thrombosis/Pulmonary Embolism Present on Admission: No
--- NOTE | 2017-01-28 20:11 | XRay Report ---
CLINICAL INFORMATION: Confusion and vomiting COMPARISON: None. FINDINGS: Right IJ catheter tip overlies the right atrium. The heart is minimally enlarged. Mediastinum and pulmonary vessels are normal. There is mild atelectasis in the right base. Lungs otherwise clear. No effusions. Acute mildly displaced fracture the surgical neck of the proximal left humerus is again noted. IMPRESSION: Mild right basilar atelectasis Interpreted and Authenticated by: Jacinto Rivera 01/28/17
--- NOTE | 2017-01-28 20:14 | XRay Report ---
CLINICAL INFORMATION: Vomiting COMPARISON: None. FINDINGS: Stool gas pattern is unremarkable - no free air, soft tissue mass or organomegaly. Acute fractures of the right symphysis pubis and left inferior pubic ramus are noted. IMPRESSION: No acute disease. Note: For persistent or recurrent or worrisome symptoms, consider repeat abdomen and pelvic CT to carefully compared to 01/18/2017 study Interpreted and Authenticated by: Jacinto Rivera 01/28/17
[2017-01-28] MEDS: ATORVASTATIN 20 MG TABLET PO SCH (21:03)
[2017-01-28] MEDS: SENNOSIDES/DOCUSATE SODIUM 1 TAB TABLET PO SCH (21:05)
[2017-01-28] MEDS ORDERED: MAGNESIUM HYDROXIDE 30 ML ORAL.SUSP PO ONE (21:33)
[2017-01-29] MEDS ORDERED: MAGNESIUM HYDROXIDE 30 ML ORAL.SUSP ONE (00:53)
[2017-01-29] MEDS: 0.9 % SODIUM CHLORIDE 10 ML SYRINGE IV SCH ×2 (05:52→14:07)
[2017-01-29] MEDS: INSULIN LISPRO 1 UNIT/0.01 ML UNIT SQ SCH ×4 (07:36→22:32)
[2017-01-29] MEDS: SEVELAMER 800 MG TABLET PO SCH ×3 (07:41→18:28)
[2017-01-29] MEDS: PANTOPRAZOLE 40 MG PACKET PO SCH (07:42)
[2017-01-29] MEDS: TORSEMIDE 10 MG TABLET PO SCH (08:35)
[2017-01-29] MEDS: SERTRALINE 50 MG TABLET PO SCH (08:36)
[2017-01-29] MEDS: cloNIDine HCL 0.1 MG TABLET PO SCH ×3 (08:37→22:31)
[2017-01-29] MEDS: VITAMIN B COMPLEX 1 CAPSULE PO SCH (08:37)
[2017-01-29] MEDS: LEVOTHYROXINE 100 MCG TABLET PO SCH (08:38)
[2017-01-29] MEDS: traMADol HCL/ACETAMINOPHEN 1 TAB TABLET PO SCH ×2 (08:38→22:31)
[2017-01-29] MEDS: LISINOPRIL 20 MG TABLET PO SCH ×2 (08:38→22:31)
[2017-01-29] MEDS: HEPARIN 5,000 UNIT/ML VIAL SQ SCH ×2 (08:38→22:29)
[2017-01-29] MEDS: DOCUSATE SODIUM 100 MG CAPSULE PO SCH ×2 (08:38→22:31)
[2017-01-29] MEDS: CLOPIDOGREL 75 MG TABLET PO SCH (08:38)
[2017-01-29] MEDS: ASPIRIN 81 MG TAB.CHEW PO SCH (08:38)
[2017-01-29] MEDS: POLYETHYLENE GLYCOL 3350 17 GM PACKET PO SCH (08:39)
[2017-01-29] MEDS: MINOXIDIL 2.5 MG TABLET PO SCH ×2 (08:41→22:32)
[2017-01-29] MEDS: HYDROmorphone 2 MG/ML SYRINGE IV PRN ×2 (10:23→17:31)
[2017-01-29] MEDS: NADOLOL 40 MG TABLET PO SCH ×2 (12:39→22:32)
--- NOTE | 2017-01-29 13:30 | Internal Med Progress Note ---
Medical - PN: Subj Patient information: Note initiated : 01/29/17 at 1:27 pm Service Date, if different from initiated Date: [] Patient: Debra Wolff 81 y/o F admitted on 01/25/17 for Hip Fracture, Shoulder Fracture. Chief Complaint: [] Interval history: 01/26/17: History of present illness: Ms. Wolff is a 81 year old female who was admitted to [facility] January 18 - January 25, 2017, after a fall in which she sustained multiple fractures. She was discharged yesterday to swing bed status She was medically stable for transfer to a rehabilitation facility, but is still having intermittent severe bouts of pain due to her left arm fracture and left leg fractures, which would have made getting in and out of a vehicle to transport to and from dialysis 3 times a week quite a challenge. the cause of her fall was a bit unclear, but it is likely related to the fact that her blood sugar was 30just after her fall. She was previously maintained on glimipiride for her type 2 diabetes. she did undergo a left hip gamma nail placement by Dr. Boyce.her pelvis and arm fractures are being managed conservatively. she also had apparent EKG changes intraoperatively, and troponin did bump to 0.28. Telephone consultation was obtained with cardiology, and it is assumed she had a minor cardiac ischemic event. She has been maintained on aspirin and Plavix, statin and beta trinity, and has otherwise remained clinically asymptomatic. She does have a history of atrial fibrillation but remains off Coumadin, as she was recently started on Plavix and aspirin for presumed coronary disease. She did have anbrief episode of hyponatremia, but this has been corrected with dialysis. This morning, she is a little upset,as she says her pain medication didn't really kick in before physical therapy. The left arm exercises today she found to be excruciatingly painful. Otherwise, she has generally been doing well. she denies Fever or chills, headaches or dizziness new eye or ear symptoms, sore throat or cough. She denies chest pain or palpitations shortness of breath or wheezing, abdominal pain, nausea or vomiting, diarrhea or constipation, dysuria. She makes little urine since she started dialysis. 01/28/17: I was called by the nurse to see this patient's afternoon as she has had a fair amount of nausea today, and then had some vomiting just now. She also seems rather confused. She complained of increased pain this morning, so did not receive her pain medicines initially, but ate some crackers and took some IV Zofran. She subsequently received some IV Dilaudid for her pain. But it seems that she's had increasing nausea since then. She has not had a bowel movement for about 3 days now, according to nursing staff. On interview, the patient is a bit groggy. She denies subjective fever or chills, chest pain or palpitations, coughing or shortness of breath abdominal pain. She has had nausea and vomiting, but denies diarrhea. She denies dysuria but has decreased urine output related to renal failure. 01/29/17: last night and this morning, the patient continues to have episodes of confusion. She has also had intermittent vomiting. I think that her vomiting is related to her need for pain medications. Sometimes Zofran seems to help, and sometimes it does not.Her and daughter are in the room with her today. The daughter notes that the patient has had memory issues and occasional confusion at home, prior to admission. This would indicate probable underlying dementia. otherwise, the patient denies significant pain at this time. She denies chest pain or shortness of breath or palpitations. She denies abdominal pain. I believe her nausea has settled down for the last couple of hours. She has not had diarrhea, but did receive a laxative last night since she had had no bowel movement for 3 days. She denies dysuria, but does not make much urine because of her renal failure. - Constitutional Vitals: Vital Signs Temp Pulse Resp BP Pulse Ox 97.6 F 65 18 146/94 100 01/29/17 11:27 01/29/17 11:27 01/29/17 11:27 01/29/17 11:27 01/29/17 11:27 Period Temp Pulse Resp BP Sys/Spence Pulse Ox Last 24 Hr 97.6 F-98.1 F 62-69 12-18 131-168/45-94 94-100 Intake and Output 01/28/17 01/29/17 01/29/17 21:59 05:59 13:59 Intake Total 480 / 480 240 / 240 120 / 120 Output Total 25 / 25 Balance 455 / 455 240 / 240 120 / 120 Intake & Output: Intake & Output 03/12/17 03/13/17 03/13/17 21:59 05:59 13:59 Intake Total 480 / 480 240 / 240 120 / 120 Output Total / 25 Balance 455 / 455 240 / 240 120 / 120 Intake: Oral 480 / 480 240 / 240 120 / 120 Output: Void Amount Other: Meal Breakfast Breakfast Percent of Meal Consumed 25% 25% Feeding Ability Total Assistance # Voids 1 Exam: on exam, she is currently in no acute distress, but does appear confused. Neck is supple without obvious lymphadenopathy or JVD. Cardiac examshows regular rate and rhythm. Lungs: Are clear to auscultation.Abdomen is soft and nontender with normal bowel sounds. Extremities: Show no significant edema. Neurologic:The patient is a little bit drifty and is clearly a bit forgetful. Otherwise she is able to follow commands, and motor exam is grossly nonfocal. Medical - PN: Obj Da - Labs CBC & Chem 7: 01/28/17 11:10 01/26/17 04:45 Labs: Abnormal Lab Results 01/28/17 01/28/17 01/28/17 21:47 21:47 11:10 RBC 3.38 L Hgb 10.2 L Hct 30.3 L RDW 15.2 H Lymph % (Auto) 10.7 L Mcclain % (Auto) 18.0 H Lymph # 1.2 L Mcclain # 2.0 H Troponin T 0.13 H* NT-Pro-B Natriuret Pep 24605.0 H Urine Protein Urine Glucose (UA) Urine Occult Blood Ur Leukocyte Esterase Urine RBC Urine WBC Ur Squamous Epith Cells Ur Transition Epith Cell Urine Bacteria Hyaline Casts 01/28/17 00:37 RBC Hgb Hct RDW Lymph % (Auto) Mcclain % (Auto) Lymph # Mcclain # Troponin T NT-Pro-B Natriuret Pep Urine Protein >=500 A Urine Glucose (UA) 50 A Urine Occult Blood 0.03 A Ur Leukocyte Esterase 75 A Urine RBC 5 H Urine WBC 18 H Ur Squamous Epith Cells 48 H Ur Transition Epith Cell 4 H Urine Bacteria Few A Hyaline Casts 32 H 01/29:eKG from this morning shows normal sinus rhythm, without obvious ischemic changes. 01/28: Chest x-ray shows mild right basilar atelectasis. abdominal x-ray shows no acute disease. blood cultures from January [address] showed mild chronic changes consistent with age. January 21, 2017: Left elbow x-ray shows soft tissue swelling but no fracture eKG from January 20, 2017: Shows atrial fibrillationwith rapid ventricular response chocardiogram was a technically difficult study, but showed aortic root sclerosis. Aortic regurgitation, mild to moderate LVH with normal systolic performance, ejection fraction 75%. January 18, 2017:CT scan of the left shoulder shows multi bipartite fracture of the surgical neck of the humerus extending into the tuberosities CT scan of the left hip shows fractures of the anterior column of the left ischium and left inferior pubic ramus and left pubic bone CT scan of the abdomen shows atherosclerosis of the aorta without aneurysm, fracture of the left sacrum, left ischium, left pubic bone, diverticulosis Meds: Medications Acetaminophen (Tylenol) 650 mg PO Q4-6HP PRN PRN Reason: PAIN/FEVER > 101 Aspirin (Aspirin) 81 mg PO DAILY [facility] Last Admin: 01/29/17 08:38 Dose: 81 mg Atorvastatin Calcium (Lipitor) 80 mg PO HS [facility] Last Admin: 01/28/17 21:03 Dose: 80 mg Calcium Carbonate/Glycine (Tums) 500 mg CHEWED Q4HP PRN PRN Reason: Dyspepsia Last Admin: 01/28/17 22:06 Dose: 500 mg Clonidine HCl (Catapres) 0.1 mg PO Q4HP PRN PRN Reason: Hypertension Clonidine HCl (Catapres) 0.2 mg PO TID [facility] Last Admin: 01/29/17 08:37 Dose: 0.2 mg Clopidogrel Bisulfate (Plavix) 75 mg PO DAILY [facility] Last Admin: 01/29/17 08:38 Dose: 75 mg Dextrose (Dextrose 50%) 0 ml IV UD PRN PRN Reason: Hypoglycemia Diagnostic Test (Pha) (Accu-Chek) 1 each FS ACHS [facility] Last Admin: 01/29/17 12:39 Dose: 1 each Docusate Sodium (Colace) 100 mg PO BID [facility] Last Admin: 01/29/17 08:38 Dose: 100 mg Heparin Sodium (Porcine) (Heparin) 5,000 unit SQ Q12 [facility] Last Admin: 01/29/17 08:38 Dose: 5,000 unit Hydromorphone HCl (Dilaudid) 2 mg PO Q4HP PRN PRN Reason: Pain Last Admin: 01/28/17 03:16 Dose: 2 mg Hydromorphone HCl (Dilaudid) 0 mg IV Q4HP PRN PRN Reason: Pain Last Admin: 01/29/17 10:23 Dose: 1 mg Insulin Human Lispro (Humalog) 0 unit SQ ACHS [facility] PRN Reason: Protocol Last Admin: 01/29/17 12:58 Dose: 4 unit Levothyroxine Sodium (Synthroid) 100 mcg PO QAC [facility] Last Admin: 01/29/17 08:38 Dose: 100 mcg Lisinopril (Zestril) 20 mg PO BID [facility] Last Admin: 01/29/17 08:38 Dose: 20 mg Lorazepam (Ativan) 1 mg IV Q2-4HP PRN PRN Reason: ANXIETY/SEDATION Minoxidil (Minoxidil) 2.5 mg PO BID [facility] Last Admin: 01/29/17 08:41 Dose: 2.5 mg Nadolol (Corgard) 80 mg PO BID [facility] Last Admin: 01/29/17 12:39 Dose: Not Given Ondansetron HCl (Zofran) 4 mg IV Q4-6HP PRN PRN Reason: Nausea And Vomiting Last Admin: 01/28/17 21:11 Dose: 4 mg [facility]oprazole [facility] Admin: 01/29/17 07:42 Dose: 40 mg Polyethylene Glycol (Miralax) 17 gm PO DAILY [facility] Last Admin: 01/29/17 08:39 Dose: 17 gm Senna/Docusate Sodium (Senna Plus Tablet) 1 tab PO HS [facility] Last Admin: 01/28/17 21:05 Dose: 1 tab Sertraline HCl (Zoloft) 75 mg PO DAILY [facility] Last Admin: 01/29/17 08:36 Dose: 75 mg Sevelamer Carbonate (Renvela) 1,600 mg PO TIDCC [facility] Last Admin: 01/29/17 12:55 Dose: 1,600 mg Sodium Chloride (Saline Flush) 10 ml IV Q8 [facility] Last Admin: 01/29/17 05:52 Dose: 10 ml Torsemide (Demadex) 100 mg PO DAILY [facility] Last Admin: 01/29/17 08:35 Dose: 100 mg Tramadol/Acetaminophen (Ultracet) 1 tab PO BID [facility] Last Admin: 03/13/17 08:38 Dose: 1 tab Vitamin B Complex (Vitamin B Complex) 1 cap PO DAILY [facility] Last Admin: 01/29/17 08:37 Dose: 1 cap Medical - PN: A/P - Time Spent With Patient Total time spent is greater than 50% in coordination of care (as documented) at patient's floor/unit and/or counseling patient: (1) Left ischial fracture Status: Acute Current Visit: Yes (2) Fracture of left inferior pubic ramus Status: Acute Current Visit: Yes (3) Left humeral fracture Status: Acute Current Visit: Yes (4) Closed left hip fracture Status: Acute Current Visit: Yes (5) Atrial fib/flutter, transient Status: Chronic Current Visit: No (6) End stage renal disease on dialysis Status: Acute Current Visit: No (7) Hypertension Status: Chronic Current Visit: No (8) Non-ST elevation myocardial infarction (NSTEMI), type 2 Status: Acute Current Visit: No (9) Pain, postoperative, acute Status: Acute Current Visit: No (10) Shoulder fracture, left Status: Acute Current Visit: No - Narrative A/P Narrative: #1. Mild confusion yesterday and today, following an episode of nausea and vomiting.- -it appears after talking with her family, that she has intermittent confusion and memory issues at home, so this may just be her baseline aggravated by being in unfamiliar surroundings. -troponin and BNP were both elevated, but are actually lower than her previous values about a week ago. EKG looks fine. She may be at some risk for PE as she is not on heparin I felt heparin was too high risk, given that she is already on Plavix and aspirin.however, she also has no shortness of breath and no drops in her oxygen saturation, so I do not have high suspicion for this. If she needed a CT angiogram, this could probably be done just prior to dialysis Urinalysis was abnormal, but appeared contaminated. She does not make much urine. It might be worthwhile to have this cultured after a straight catheter. -These things were all reviewed with the patient and her daughter and today. Further workup and treatment will depend onhow she does clinically over the course of the day. #1. Multiple fractures, including her left arm and left hip and pelvis. -admitted to swing bed status, for ongoing physical therapy and pain management and access to dialysis. .-Continue when necessary Dilaudid, tramadol, Tylenol. -per Dr. Boyce: pod 6 s/p left hip gamma nail. left proximal humerus fracture non-operative treatment NWB LUE, NWB LLE but ok to stand and pivot for transfers ok to come out of the sling for rom of the elbow, wrist, fingers take of mckayla wrap over arm at least once per day to allow skin to breath -the patient's family was concerned that she had not had a left shoulder x-ray for over a week, so I did contact Dr. Boyce, who suggested we order a left shoulder series, which he will review this evening. -f/u in office in 10-14 days. #2. Probable recent mild cardiac event. - We will continue with aspirin and Plavix, plus statin and beta trinity. -it is suggested that the patient have a follow-up nuclear stress test after discharge, when she could more easily undergo such testing. #3. Hypertension. -She will continue her complicated medical regimen, which is generally managed by nephrology. #4.End-stage renal disease. Managed by nephrology with dialysis. #5. Hyponatremia. This has improved. #6. DVT prophylaxis:The patient has been maintained on subcutaneous heparin, and addition to plavix and aspirin. #7. CODE STATUS: Full code. #8. Leukocytosis. this actually looked better on this morning's labs. #9. Type 2 diabetes. It appears she was having hypoglycemia at home.gliamipiride is on hold. Accu- Cheks are currently ranging from 159-217. monitor Accu-Cheks.cover with insulin if needed. this visit is taken approximately 30 minutes so far today, to review plan of care with both nursing staff as well as with the patient and her daughter, and write orders. Medical - PN: Qual - Stroke Symptom Onset Unknown: No - VTE Deep Vein Thrombosis/Pulmonary Embolism Present on Admission: No
--- NOTE | 2017-01-29 17:57 | Nephrology Progress Note ---
Subjective Patient information: Note initiated : 01/29/17 at 5:56 pm Service Date, if different from initiated Date: [] Patient: Debra Wolff 81 y/o F admitted on 01/25/17 for Hip Fracture, Shoulder Fracture. Chief Complaint: She is in pain on and off. Confused. Had dialysis today. Objective - Vital Signs Vital signs: Vital Signs Temp Pulse Pulse Resp BP Pulse Ox 01/29/17 11:27 97.6 F 65 18 146/94 100 01/29/17 09:18 62 96 01/29/17 07:26 97.8 F 64 14 168/69 97 01/29/17 04:02 67 14 135/72 96 01/28/17 23:43 98.1 F 69 12 131/73 94 01/28/17 19:47 97.7 F 69 12 148/45 97 Intake and Output 01/29/17 01/29/17 01/29/17 05:59 13:59 21:59 Intake Total 240 / 240 120 / 120 Balance 240 / 240 120 / 120 Intake: Oral 240 / 240 120 / 120 Other: Meal Breakfast Percent of Meal Consumed 25% Feeding Ability Total Assistance # Voids 1 Intake & Output: Intake & Output 01/29/17 01/29/17 01/29/17 05:59 13:59 21:59 Intake Total 240 / 240 120 / 120 Balance 240 / 240 120 / 120 Intake: Oral 240 / 240 120 / 120 Other: Meal Breakfast Percent of Meal Consumed 25% Feeding Ability Total Assistance # Voids 1 - General Appearance General appearance: cachectic EENT: ATNC Neck: no JVD Respiratory: no kyphosis Cardiology: no murmurs Gastrointestinal: normoactive bowel sounds Integumentary: no rash Neurologic: no focal deficit - Lab 01/28/17 11:10 01/26/17 04:45 Most recent lab results Calcium 7.2 mg/dl (8.6-10.4) L 01/26/17 04:45 Assessment and Plan (1) End stage renal disease on dialysis ESRD. Had dialysis today. Will have treatment on Sunday. HTN Blood pressure adequately controlled. DM. check blood sugar AC and HS and ss. Confusion related to pain meds. Status: Acute
--- NOTE | 2017-01-29 18:02 | XRay Report ---
CLINICAL INFORMATION: Right wrist pain TECHNIQUE: PA, oblique, lateral views of the right wrist COMPARISON: None. FINDINGS: No right wrist fracture. No lytic or destructive lesion. Very severe degenerative joint disease at the right 1st carpal metacarpal joint. There is vascular calcification consistent with diabetes. IMPRESSION: 1. Degenerative joint disease. 2. No acute abnormality. Interpreted and Authenticated by: Jacinto Roman 01/29/17
[2017-01-29] MEDS: ATORVASTATIN 20 MG TABLET PO SCH (22:30)
[2017-01-29] MEDS: SENNOSIDES/DOCUSATE SODIUM 1 TAB TABLET PO SCH (22:31)
[2017-01-30] MEDS: 0.9 % SODIUM CHLORIDE 10 ML SYRINGE IV SCH ×4 (05:26→20:17)
[2017-01-30] MEDS: SEVELAMER 800 MG TABLET PO SCH ×3 (07:23→17:39)
[2017-01-30] MEDS: PANTOPRAZOLE 40 MG PACKET PO SCH (07:23)
[2017-01-30] MEDS: LEVOTHYROXINE 100 MCG TABLET PO SCH (07:24)
[2017-01-30] MEDS: INSULIN LISPRO 1 UNIT/0.01 ML UNIT SQ SCH ×4 (07:25→22:19)
[2017-01-30] MEDS: HEPARIN 5,000 UNIT/ML VIAL SQ SCH ×2 (08:39→20:16)
[2017-01-30] MEDS: cloNIDine HCL 0.1 MG TABLET PO SCH ×3 (08:39→20:14)
[2017-01-30] MEDS: SERTRALINE 50 MG TABLET PO SCH (08:39)
[2017-01-30] MEDS: LISINOPRIL 20 MG TABLET PO SCH ×2 (08:39→20:15)
[2017-01-30] MEDS: CLOPIDOGREL 75 MG TABLET PO SCH (08:40)
[2017-01-30] MEDS: DOCUSATE SODIUM 100 MG CAPSULE PO SCH ×2 (08:40→20:16)
[2017-01-30] MEDS: ASPIRIN 81 MG TAB.CHEW PO SCH (08:40)
[2017-01-30] MEDS: VITAMIN B COMPLEX 1 CAPSULE PO SCH (08:40)
[2017-01-30] MEDS: traMADol HCL/ACETAMINOPHEN 1 TAB TABLET PO SCH ×2 (08:40→20:15)
[2017-01-30] MEDS: CELECOXIB 100 MG CAPSULE PO SCH (08:41)
[2017-01-30] MEDS: POLYETHYLENE GLYCOL 3350 17 GM PACKET PO SCH (08:41)
[2017-01-30] MEDS: TORSEMIDE 100 MG TABLET PO SCH (08:41)
[2017-01-30] MEDS: NADOLOL 40 MG TABLET PO SCH ×2 (08:41→20:13)
[2017-01-30] MEDS: MINOXIDIL 2.5 MG TABLET PO SCH ×2 (08:42→20:11)
[2017-01-30] MEDS: HYDROmorphone 2 MG TABLET PO PRN ×2 (08:48→13:07)
--- NOTE | 2017-01-30 16:34 | Nephrology Progress Note ---
Subjective Patient information: Note initiated : 01/30/17 at 4:30 pm Service Date, if different from initiated Date: [] Patient: Debra Wolff 81 y/o F admitted on 01/25/17 for Hip Fracture, Shoulder Fracture. Chief Complaint: Still a lot of pain wilder when she moves. Otherwise doing well. Objective - Vital Signs Vital signs: Vital Signs Temp Pulse Pulse Resp BP Pulse Ox 01/30/17 09:13 52 L 16 97 01/30/17 07:57 98.4 F 94 H 12 117/64 99 01/29/17 23:01 98.0 F 97 H 12 136/79 100 01/29/17 22:33 136/79 01/29/17 19:58 98.0 F 105 H 12 97/64 96 Intake and Output 01/30/17 01/30/17 01/30/17 05:59 13:59 21:59 Intake Total 240 / 240 120 / 120 Balance 240 / 240 120 / 120 Intake: Oral 240 / 240 120 / 120 Other: Meal Nourishment/Supplement Breakfast Lunch Percent of Meal Consumed 25% 25% 25% Feeding Ability Independent Assist with Tray Set Up Independent Intake & Output: Intake & Output 01/30/17 01/30/17 01/30/17 05:59 13:59 21:59 Intake Total 240 / 240 120 / 120 Balance 240 / 240 120 / 120 Intake: Oral 240 / 240 120 / 120 Other: Meal Nourishment/Supplement Breakfast Lunch Percent of Meal Consumed 25% 25% 25% Feeding Ability Independent Assist with Tray Set Up Independent - General Appearance General appearance: cachectic EENT: ATNC Neck: no JVD Respiratory: no kyphosis Cardiology: no murmurs Gastrointestinal: normoactive bowel sounds Neurologic: no focal deficit - Lab 01/28/17 11:10 01/26/17 04:45 Most recent lab results Calcium 7.2 mg/dl (8.6-10.4) L 01/26/17 04:45 Assessment and Plan (1) End stage renal disease on dialysis ESRD. Had dialysis yesterday. Will have treatment on Sunday. HTN Blood pressure adequately controlled. DM. check blood sugar AC and HS and ss. Confusion related to pain meds. Stable. Status: Acute
[2017-01-30] MEDS: BISACODYL 5 MG TABLET PO SCH (20:14)
[2017-01-30] MEDS: SENNOSIDES/DOCUSATE SODIUM 1 TAB TABLET PO SCH (20:15)
[2017-01-30] MEDS: LACTULOSE 20 GM/30 ML ORAL.SOL PO SCH (20:16)
[2017-01-30] MEDS: ATORVASTATIN 20 MG TABLET PO SCH (20:16)
[2017-01-31] MEDS: HYDROmorphone 2 MG TABLET PO PRN ×3 (06:33→15:18)
[2017-01-31] MEDS: NADOLOL 40 MG TABLET PO SCH ×2 (10:30→21:56)
[2017-01-31] MEDS: SERTRALINE 50 MG TABLET PO SCH (10:31)
[2017-01-31] MEDS: HEPARIN 5,000 UNIT/ML VIAL SQ SCH ×2 (10:31→21:56)
[2017-01-31] MEDS: MINOXIDIL 2.5 MG TABLET PO SCH ×2 (10:32→21:57)
[2017-01-31] MEDS: PANTOPRAZOLE 40 MG PACKET PO SCH (10:32)
[2017-01-31] MEDS: cloNIDine HCL 0.1 MG TABLET PO SCH ×3 (10:32→21:53)
[2017-01-31] MEDS: TORSEMIDE 100 MG TABLET PO SCH (10:32)
[2017-01-31] MEDS: ASPIRIN 81 MG TAB.CHEW PO SCH (10:33)
[2017-01-31] MEDS: DOCUSATE SODIUM 100 MG CAPSULE PO SCH ×2 (10:33→21:54)
[2017-01-31] MEDS: VITAMIN B COMPLEX 1 CAPSULE PO SCH (10:33)
[2017-01-31] MEDS: traMADol HCL/ACETAMINOPHEN 1 TAB TABLET PO SCH ×2 (10:33→21:56)
[2017-01-31] MEDS: LISINOPRIL 20 MG TABLET PO SCH ×2 (10:33→21:56)
[2017-01-31] MEDS: CLOPIDOGREL 75 MG TABLET PO SCH (10:33)
[2017-01-31] MEDS: SEVELAMER 800 MG TABLET PO SCH ×3 (10:34→17:33)
[2017-01-31] MEDS: LEVOTHYROXINE 100 MCG TABLET PO SCH (10:34)
[2017-01-31] MEDS: 0.9 % SODIUM CHLORIDE 10 ML SYRINGE IV SCH ×2 (10:34→15:19)
[2017-01-31] MEDS: CELECOXIB 100 MG CAPSULE PO SCH (10:35)
[2017-01-31] MEDS: POLYETHYLENE GLYCOL 3350 17 GM PACKET PO SCH (10:35)
[2017-01-31] MEDS: LACTULOSE 20 GM/30 ML ORAL.SOL PO SCH ×3 (10:35→21:55)
[2017-01-31] MEDS: INSULIN LISPRO 1 UNIT/0.01 ML UNIT SQ SCH ×4 (11:48→22:09)
--- NOTE | 2017-01-31 16:21 | Nephrology Progress Note ---
Subjective Patient information: Note initiated : 01/31/17 at 4:19 pm Service Date, if different from initiated Date: [] Patient: Debra Wolff 81 y/o F admitted on 01/25/17 for Hip Fracture, Shoulder Fracture. Chief Complaint: Pain is better. Objective - Vital Signs Vital signs: Vital Signs Temp Pulse Resp BP BP Pulse Ox 01/31/17 04:05 80 146/67 01/30/17 19:49 98.2 F 78 16 166/49 98 Intake and Output 01/31/17 01/31/17 01/31/17 05:59 13:59 21:59 Intake Total 350 / 350 120 / 120 Output Total 121 / 121 Balance 350 / 350 -1 / -1 Intake: Oral 350 / 350 120 / 120 Output: Void Amount 120 / 120 # of times incontinent of 1 / 1 urine Other: Meal Lunch Percent of Meal Consumed 25% Feeding Ability Assist with Tray Set Up Weight 123 lb Patient Weight 02/01/17 05:59 Weight 123 lb Intake & Output: Intake & Output 01/31/17 01/31/17 01/31/17 05:59 13:59 21:59 Intake Total 350 / 350 120 / 120 Output Total 121 / 121 Balance 350 / 350 -1 / -1 Weight 123 lb Intake: Oral 350 / 350 120 / 120 Output: Void Amount 120 / 120 # of times incontinent of 1 / 1 urine Other: Meal Lunch Percent of Meal Consumed 25% Feeding Ability Assist with Tray Set Up - General Appearance General appearance: cachectic EENT: ATNC Neck: no JVD Respiratory: no kyphosis Cardiology: no murmurs Integumentary: no rash - Lab 01/28/17 11:10 01/26/17 04:45 Most recent lab results Calcium 7.2 mg/dl (8.6-10.4) L 01/26/17 04:45 Assessment and Plan (1) End stage renal disease on dialysis ESRD. Had dialysis today. She will get dialysed at 6am on Sunday and she can be discharged to snf. HTN Blood pressure adequately controlled. DM. check blood sugar AC and HS and ss. Confusion related to pain meds. Stable. Status: Acute
[2017-01-31] MEDS: ATORVASTATIN 20 MG TABLET PO SCH (21:55)
[2017-01-31] MEDS: SENNOSIDES/DOCUSATE SODIUM 1 TAB TABLET PO SCH (21:56)
[2017-01-31] MEDS: BISACODYL 5 MG TABLET PO SCH (21:56)
[2017-02-01] MEDS: 0.9 % SODIUM CHLORIDE 10 ML SYRINGE IV SCH ×4 (01:25→22:49)
[2017-02-01 05:10] LABS: Basophils # (Auto) 0 K/mcL (0.0-0.3); Basophils % (Auto) 0.6 % (0.0-2.0); Eosinophils # (Auto) 0.1 K/mcL (0.0-0.7); Eosinophils % (Auto) 1.4 % (0.0-7.0); Granulocytes % (Auto) 69.9 % (38.0-78.0); Lymphocytes # (Auto) 1.6 K/mcL (1.5-4.8); Lymphocytes % (Auto) 18.3 % (15.5-49.0); Mean Cell Volume 91.1 fL (80.0-100.0); Mean Corpuscular HGB Conc 33.6 g/dL (31.0-36.0); Mean Corpuscular Hemoglobin 30.6 pg (26.0-34.0); Monocytes # (Auto) 0.9 K/mcL (0.1-0.9); Monocytes % (Auto) 9.8 % (1.0-9.0); Platelet Count 243 K/mcL (140-440); RBC 2.43 M/mcL (4.00-5.20); Red Cell Distribution Width 15.6 % (11.5-14.5)
[2017-02-01 05:35] LABS: ALT/SGPT 30 U/l (0-40); Albumin 2.4 gm/dL (3.2-5.2); Albumin/Globulin Ratio 0.8 (1.0-2.3); Alkaline Phosphatase 260 U/L (39-117); Bilirubin,Direct 0.2 mg/dL (0.0-0.3); Blood Urea Nitrogen 27 mg/dl (8-23); Gamma Glutamyl Transpeptidase 85 U/L (5-36); Magnesium 2.6 mg/dL (1.6-2.5); Uric Acid 3.3 mg/dL (2.5-8.0)
[2017-02-01] MEDS: HYDROmorphone 2 MG TABLET PO PRN ×2 (07:15→22:46)
[2017-02-01] MEDS: PANTOPRAZOLE 40 MG PACKET PO SCH (07:15)
[2017-02-01] MEDS: INSULIN LISPRO 1 UNIT/0.01 ML UNIT SQ SCH ×4 (07:18→21:32)
[2017-02-01] MEDS: HEPARIN 5,000 UNIT/ML VIAL SQ SCH ×2 (08:35→21:32)
[2017-02-01] MEDS: SERTRALINE 50 MG TABLET PO SCH (08:36)
[2017-02-01] MEDS: ASPIRIN 81 MG TAB.CHEW PO SCH (08:36)
[2017-02-01] MEDS: TORSEMIDE 100 MG TABLET PO SCH (08:36)
[2017-02-01] MEDS: cloNIDine HCL 0.1 MG TABLET PO SCH ×3 (08:36→21:32)
[2017-02-01] MEDS: SEVELAMER 800 MG TABLET PO SCH ×3 (08:36→17:00)
[2017-02-01] MEDS: MINOXIDIL 2.5 MG TABLET PO SCH ×2 (08:38→21:33)
[2017-02-01] MEDS: NADOLOL 40 MG TABLET PO SCH ×2 (08:38→21:33)
[2017-02-01] MEDS: POLYETHYLENE GLYCOL 3350 17 GM PACKET PO SCH (08:38)
[2017-02-01] MEDS: traMADol HCL/ACETAMINOPHEN 1 TAB TABLET PO SCH ×2 (08:39→21:32)
[2017-02-01] MEDS: DOCUSATE SODIUM 100 MG CAPSULE PO SCH ×2 (08:39→21:32)
[2017-02-01] MEDS: LISINOPRIL 20 MG TABLET PO SCH ×2 (08:39→21:32)
[2017-02-01] MEDS: CLOPIDOGREL 75 MG TABLET PO SCH (08:39)
[2017-02-01] MEDS: LEVOTHYROXINE 100 MCG TABLET PO SCH (08:40)
[2017-02-01] MEDS: VITAMIN B COMPLEX 1 CAPSULE PO SCH (08:40)
[2017-02-01] MEDS: CELECOXIB 100 MG CAPSULE PO SCH (08:40)
[2017-02-01] MEDS: LACTULOSE 20 GM/30 ML ORAL.SOL PO SCH ×3 (08:40→22:48)
[2017-02-01 09:03] LABS: Basophils # (Auto) 0 K/mcL (0.0-0.3); Basophils % (Auto) 0.1 % (0.0-2.0); Eosinophils # (Auto) 0.2 K/mcL (0.0-0.7); Eosinophils % (Auto) 2.1 % (0.0-7.0); Granulocytes % (Auto) 73.5 % (38.0-78.0); Lymphocytes # (Auto) 1.6 K/mcL (1.5-4.8); Lymphocytes % (Auto) 19.3 % (15.5-49.0); Mean Cell Volume 90.6 fL (80.0-100.0); Mean Corpuscular HGB Conc 32.8 g/dL (31.0-36.0); Mean Corpuscular Hemoglobin 29.7 pg (26.0-34.0); Monocytes # (Auto) 0.4 K/mcL (0.1-0.9); Platelet Count 257 K/mcL (140-440); RBC 2.45 M/mcL (4.00-5.20); Red Cell Distribution Width 15.9 % (11.5-14.5)
[2017-02-01] MEDS ORDERED: 0.9 % SODIUM CHLORIDE 250 ML IV SCH (13:15)
--- NOTE | 2017-02-01 13:32 | Internal Med Progress Note ---
Medical - PN: Subj Patient information: Note initiated : 02/01/17 at 1:27 pm Service Date, if different from initiated Date: [] Patient: Debra Wolff 81 y/o F admitted on 01/25/17 for Hip Fracture, Shoulder Fracture. Chief Complaint: [] Interval history: 01/26/17: History of present illness: Ms. Wolff is a 81 year old female who was admitted to [facility] January 18 - January 25, 2017, after a fall in which she sustained multiple fractures. She was discharged yesterday to swing bed status She was medically stable for transfer to a rehabilitation facility, but is still having intermittent severe bouts of pain due to her left arm fracture and left leg fractures, which would have made getting in and out of a vehicle to transport to and from dialysis 3 times a week quite a challenge. the cause of her fall was a bit unclear, but it is likely related to the fact that her blood sugar was 30just after her fall. She was previously maintained on glimipiride for her type 2 diabetes. she did undergo a left hip gamma nail placement by Dr. Boyce.her pelvis and arm fractures are being managed conservatively. she also had apparent EKG changes intraoperatively, and troponin did bump to 0.28. Telephone consultation was obtained with cardiology, and it is assumed she had a minor cardiac ischemic event. She has been maintained on aspirin and Plavix, statin and beta trinity, and has otherwise remained clinically asymptomatic. She does have a history of atrial fibrillation but remains off Coumadin, as she was recently started on Plavix and aspirin for presumed coronary disease. She did have anbrief episode of hyponatremia, but this has been corrected with dialysis. This morning, she is a little upset,as she says her pain medication didn't really kick in before physical therapy. The left arm exercises today she found to be excruciatingly painful. Otherwise, she has generally been doing well. she denies Fever or chills, headaches or dizziness new eye or ear symptoms, sore throat or cough. She denies chest pain or palpitations shortness of breath or wheezing, abdominal pain, nausea or vomiting, diarrhea or constipation, dysuria. She makes little urine since she started dialysis. 01/28/17: I was called by the nurse to see this patient's afternoon as she has had a fair amount of nausea today, and then had some vomiting just now. She also seems rather confused. She complained of increased pain this morning, so did not receive her pain medicines initially, but ate some crackers and took some IV Zofran. She subsequently received some IV Dilaudid for her pain. But it seems that she's had increasing nausea since then. She has not had a bowel movement for about 3 days now, according to nursing staff. On interview, the patient is a bit groggy. She denies subjective fever or chills, chest pain or palpitations, coughing or shortness of breath abdominal pain. She has had nausea and vomiting, but denies diarrhea. She denies dysuria but has decreased urine output related to renal failure. 01/29/17: last night and this morning, the patient continues to have episodes of confusion. She has also had intermittent vomiting. I think that her vomiting is related to her need for pain medications. Sometimes Zofran seems to help, and sometimes it does not.Her and daughter are in the room with her today. The daughter notes that the patient has had memory issues and occasional confusion at home, prior to admission. This would indicate probable underlying dementia. otherwise, the patient denies significant pain at this time. She denies chest pain or shortness of breath or palpitations. She denies abdominal pain. I believe her nausea has settled down for the last couple of hours. She has not had diarrhea, but did receive a laxative last night since she had had no bowel movement for 3 days. She denies dysuria, but does not make much urine because of her renal failure. 02/01- Pt seen examined, no acute overnight events, hb noted to be low, at 7.3, not on anaresp, pt denies any bleed, no hematuria, epistaxis blood in stools or halle reported She is othewrise fine except being tired. Discussed iwth her need for stool sample, Anemia workup and need to transfuse 2 units. pt verbalized agreement. Discussed [facility] who will write orders for anaresp Pertinent ROS: Denies headache, dizziness Denies chest pain, palpitations Denies cough or shortness of breath Denies abdominal pain, nausea or vomiting. - Constitutional Vitals: Vital Signs Temp Pulse Resp BP Pulse Ox 98.7 F 67 16 123/73 100 02/01/17 07:27 02/01/17 07:27 02/01/17 07:27 02/01/17 07:27 02/01/17 07:27 Period Temp Pulse Resp BP Sys/Spence Pulse Ox Last 24 Hr 98.1 F-98.7 F 67-105 12-16 123-141/68-73 98-100 Intake and Output 01/31/17 02/01/17 02/01/17 21:59 05:59 13:59 Intake Total 440 / 440 800 / 800 240 / 240 Output Total Balance 440 / 440 799 / 799 240 / 240 Weight 119 lb Intake & Output: Intake & Output 01/31/17 02/01/17 02/01/17 21:59 05:59 13:59 Intake Total 440 / 440 800 / 800 240 / 240 Output Total Balance 440 / 440 799 / 799 240 / 240 Weight 119 lb Intake: Oral 440 / 440 800 / 800 240 / 240 Output: # of times incontinent of urine Other: Meal Dinner Breakfast Percent of Meal Consumed 25% 25% Feeding Ability Assist with Tray Set Up Assist with Tray Set Up # Bowel Movements 1 Exam: Constitutional; Afebrile, cooperative, alert, not in distress. Eyes- No icterus, Pupils equal, reactive, No periorbital swelling Ears- Ext ear normal, hearing normal to conversation. Neck- Midline trachea, supple Respiratory system: Air Entry equal on both sides, No crackles or wheezing, no rhonchi. CVS- Rate rhythm regular, S1,S2 heard, no gallop, no rub. Abdomen- Soft nontender abdomen, no organomegaly, no tenderness, no guarding or rigidity, [employer]- AOOx3, moving all extremities, no focal deficit noted. Medical - PN: Obj Da - Labs CBC & Chem 7: 02/01/17 08:31 02/01/17 03:40 Labs: Abnormal Lab Results 02/01/17 02/01/17 02/01/17 08:31 03:40 03:40 RBC 2.45 L 2.43 L Hgb 7.3 L 7.4 L Hct 22.2 L 22.1 L RDW 15.9 H 15.6 H Owen % (Auto) 9.8 H Sodium 132 L Chloride 91 L BUN 27 H Creatinine 3.0 H Glucose 116 H Calcium 7.9 L Phosphorus 1.0 L Magnesium 2.6 H GGT 85 H Alkaline Phosphatase 260 H Lactate Dehydrogenase 285 H Total Protein 5.6 L Albumin 2.4 L Albumin/Globulin Ratio 0.8 L Meds: Medications Acetaminophen (Tylenol) 650 mg PO Q4-6HP PRN PRN Reason: PAIN/FEVER > 101 Aspirin (Aspirin) 81 mg PO DAILY [facility] Last Admin: 02/01/17 08:36 Dose: 81 mg Atorvastatin Calcium (Lipitor) 80 mg PO HS [facility] Last Admin: 01/31/17 21:55 Dose: 80 mg Bisacodyl (Dulcolax) 10 mg PO HS [facility] Last Admin: 01/31/17 21:56 Dose: 10 mg Calcium Carbonate/Glycine (Tums) 500 mg CHEWED Q4HP PRN PRN Reason: Dyspepsia Last Admin: 01/28/17 22:06 Dose: 500 mg Celecoxib (Celebrex) 100 mg PO DAILY [facility] Last Admin: 02/01/17 08:40 Dose: Not Given Clonidine HCl (Catapres) 0.1 mg PO Q4HP PRN PRN Reason: Hypertension Clonidine HCl (Catapres) 0.2 mg PO TID [facility] Last Admin: 02/01/17 08:36 Dose: 0.2 mg Clopidogrel Bisulfate (Plavix) 75 mg PO DAILY [facility] Last Admin: 02/01/17 08:39 Dose: 75 mg Dextrose (Dextrose 50%) 0 ml IV UD PRN PRN Reason: Hypoglycemia Diagnostic Test (Pha) (Accu-Chek) 1 each FS ACHS [facility] Last Admin: 02/01/17 12:06 Dose: 1 each Docusate Sodium (Colace) 100 mg PO BID [facility] Last Admin: 02/01/17 08:39 Dose: 100 mg Heparin Sodium (Porcine) (Heparin) 5,000 unit SQ Q12 [facility] Last Admin: 02/01/17 08:35 Dose: 5,000 unit Hydromorphone HCl (Dilaudid) 2 mg PO Q4HP PRN PRN Reason: Pain Last Admin: 02/01/17 07:15 Dose: 2 mg Hydromorphone HCl (Dilaudid) 0 mg IV Q4HP PRN PRN Reason: Pain Last Admin: 01/29/17 17:31 Dose: 1 mg Sodium Chloride (Sodium Chloride 0.9%) 250 mls @ 20 mls/hr IV .[id number] [facility] Stop: 02/02/17 01:44 Insulin Human Lispro (Humalog) 0 unit SQ ACHS [facility] PRN Reason: Protocol Last Admin: 02/01/17 12:07 Dose: 4 unit Lactulose (Cephulac) 30 gm PO TID [facility] Last Admin: 02/01/17 08:40 Dose: Not Given Levothyroxine Sodium (Synthroid) 100 mcg PO QAMCC [facility] Last Admin: 02/01/17 08:40 Dose: 100 mcg Lisinopril (Zestril) 20 mg PO BID [facility] Last Admin: 02/01/17 08:39 Dose: 20 mg Lorazepam (Ativan) 1 mg IV Q2-4HP PRN PRN Reason: ANXIETY/SEDATION Minoxidil (Minoxidil) 2.5 mg PO BID [facility] Last Admin: 02/01/17 08:38 Dose: 2.5 mg Nadolol (Corgard) 80 mg PO BID [facility] Last Admin: 02/01/17 08:38 Dose: 80 mg Ondansetron HCl (Zofran) 4 mg IV Q4-6HP PRN PRN Reason: Nausea And Vomiting Last Admin: 01/28/17 21:11 Dose: 4 mg Pantoprazole Sodium (Protonix) 40 mg PO QAMAC [facility] Last Admin: 02/01/17 07:15 Dose: 40 mg Torsemide 100 Mg (Tablet) 1 dose PO DAILY [facility] Last Admin: 02/01/17 08:36 Dose: 1 dose Polyethylene Glycol (Miralax) 17 gm PO DAILY [facility] Last Admin: 02/01/17 08:38 Dose: 17 gm Senna/Docusate Sodium (Senna Plus Tablet) 1 tab PO HS [facility] Last Admin: 01/31/17 21:56 Dose: 1 tab Sertraline HCl (Zoloft) 75 mg PO DAILY [facility] Last Admin: 02/01/17 08:36 Dose: 75 mg Sevelamer Carbonate (Renvela) 1,600 mg PO TIDCC [facility] Last Admin: 02/01/17 12:07 Dose: Not Given Sodium Chloride (Saline Flush) 10 ml IV Q8 [facility] Last Admin: 02/01/17 07:18 Dose: 10 ml Tramadol/Acetaminophen (Ultracet) 1 tab PO BID [facility] Last Admin: 02/01/17 08:39 Dose: 1 tab Vitamin B Complex (Vitamin B Complex) 1 cap PO DAILY [facility] Last Admin: 02/01/17 08:40 Dose: 1 cap Medical - PN: A/P - Time Spent With Patient Total time spent is greater than 50% in coordination of care (as documented) at patient's floor/unit and/or counseling patient: (1) Anemia in ESRD (end-stage renal disease) Status: Acute Current Visit: Yes (2) End stage renal disease on dialysis Status: Acute Current Visit: No (3) Hyponatremia Status: Acute Current Visit: No (4) Pain, postoperative, acute Status: Acute Current Visit: No (5) Shoulder fracture, left Status: Acute Current Visit: No - Narrative A/P Narrative: Pt is overall doing well ANemia likely from esrd, transfuse 2 units, check anemia studies, watch for bleed, pain control better. On HD for esrd Left shoulder x ray today and cc copy to Dr edwards for review as per his wishes. If patient remains stable, d/c in AM to SNF Medical - PN: Qual - Stroke Symptom Onset Unknown: No - VTE Deep Vein Thrombosis/Pulmonary Embolism Present on Admission: No
--- NOTE | 2017-02-01 13:35 | Nephrology Progress Note ---
Subjective Patient information: Note initiated : 02/01/17 at 1:33 pm Service Date, if different from initiated Date: [] Patient: Debra Wolff 81 y/o F admitted on 01/25/17 for Hip Fracture, Shoulder Fracture. Chief Complaint: [pain is better. She has not been doing much PT] Objective - Vital Signs Vital signs: Vital Signs Temp Pulse Resp BP BP Pulse Ox 02/01/17 07:27 98.7 F 67 16 123/73 100 01/31/17 19:58 98.1 F 105 H 12 141/68 98 Intake and Output 01/31/17 02/01/17 02/01/17 21:59 05:59 13:59 Intake Total 440 / 440 800 / 800 240 / 240 Output Total Balance 440 / 440 799 / 799 240 / 240 Intake: Oral 440 / 440 800 / 800 240 / 240 Output: # of times incontinent of / 1 urine Other: Meal Dinner Breakfast Percent of Meal Consumed 25% 25% Feeding Ability Assist with Tray Set Up Assist with Tray Set Up # Bowel Movements 1 Weight 119 lb Intake & Output: Intake & Output 01/31/17 02/01/17 02/01/17 21:59 05:59 13:59 Intake Total 440 / 440 800 / 800 240 / 240 Output Total / Balance 440 / 440 799 / 799 240 / 240 Weight 119 lb Intake: Oral 440 / 440 800 / 800 240 / 240 Output: # of times incontinent of / urine Other: Meal Dinner Breakfast Percent of Meal Consumed 25% 25% Feeding Ability Assist with Tray Set Up Assist with Tray Set Up # Bowel Movements 1 - General Appearance General appearance: appears started age, cachectic EENT: ATNC Neck: no JVD Respiratory: no kyphosis Cardiology: no murmurs Gastrointestinal: normoactive bowel sounds Neurologic: no focal deficit - Lab 02/01/17 08:31 02/01/17 03:40 Most recent lab results Calcium 7.9 mg/dl (8.6-10.4) L 02/01/17 03:40 Phosphorus 1.0 mg/dL (2.7-4.5) L 02/01/17 03:40 Magnesium 2.6 mg/dL (1.6-2.5) H 02/01/17 03:40 Assessment and Plan (1) End stage renal disease on dialysis ESRD. Had dialysis today. She will get dialysed at 6am on Sunday and she can be discharged to snf. HTN Blood pressure adequately controlled. DM. check blood sugar AC and HS and ss. Confusion related to pain meds. Stable. Anemia. Will have transfusion today. Status: Acute
[2017-02-01 14:25] LABS: Haptoglobin 148 mg/dl (30-200)
[2017-02-01] MEDS: BISACODYL 5 MG TABLET PO SCH (21:32)
[2017-02-01] MEDS: ATORVASTATIN 20 MG TABLET PO SCH (21:33)
[2017-02-01] MEDS: SENNOSIDES/DOCUSATE SODIUM 1 TAB TABLET PO SCH (21:33)
[2017-02-02] MEDS: HYDROmorphone 2 MG TABLET PO PRN ×2 (05:31→13:41)
[2017-02-02] MEDS: 0.9 % SODIUM CHLORIDE 10 ML SYRINGE IV SCH (05:48)
[2017-02-02 08:37] LABS: Mean Cell Volume 89.5 fL (80.0-100.0); Mean Corpuscular HGB Conc 32.6 g/dL (31.0-36.0); Mean Corpuscular Hemoglobin 29.2 pg (26.0-34.0); Platelet Count 258 K/mcL (140-440); RBC 3.73 M/mcL (4.00-5.20); Red Cell Distribution Width 15.6 % (11.5-14.5)
[2017-02-02 08:40] LABS: Band Neutrophils % 1 % (0-10); Eosinophils % (Manual) 2 % (0-7); Lymphocytes % 13 % (15-49); Monocytes % (Manual) 5 % (1-9); Myelocytes % 1 % (0-0); Platelet Estimate NORMAL (NORMAL); RBC Morphology NORMAL (NORMAL); Segmented Neutrophils % 78 % (38-78)
[2017-02-02] MEDS: INSULIN LISPRO 1 UNIT/0.01 ML UNIT SQ SCH ×2 (09:39→13:41)
[2017-02-02] MEDS: PANTOPRAZOLE 40 MG PACKET PO SCH (09:42)
[2017-02-02] MEDS: SEVELAMER 800 MG TABLET PO SCH ×2 (09:42→14:06)
[2017-02-02] MEDS: LEVOTHYROXINE 100 MCG TABLET PO SCH (09:43)
[2017-02-02] MEDS: LACTULOSE 20 GM/30 ML ORAL.SOL PO SCH (10:16)
[2017-02-02] MEDS: TORSEMIDE 100 MG TABLET PO SCH (10:16)
[2017-02-02] MEDS: DOCUSATE SODIUM 100 MG CAPSULE PO SCH (10:17)
[2017-02-02] MEDS: LISINOPRIL 20 MG TABLET PO SCH (10:17)
[2017-02-02] MEDS: cloNIDine HCL 0.1 MG TABLET PO SCH (10:18)
[2017-02-02] MEDS: HEPARIN 5,000 UNIT/ML VIAL SQ SCH (10:18)
[2017-02-02] MEDS: SERTRALINE 50 MG TABLET PO SCH (10:18)
[2017-02-02] MEDS: VITAMIN B COMPLEX 1 CAPSULE PO SCH (10:19)
[2017-02-02] MEDS: ASPIRIN 81 MG TAB.CHEW PO SCH (10:19)
[2017-02-02] MEDS: CLOPIDOGREL 75 MG TABLET PO SCH (10:19)
[2017-02-02] MEDS: MINOXIDIL 2.5 MG TABLET PO SCH (10:19)
[2017-02-02] MEDS: traMADol HCL/ACETAMINOPHEN 1 TAB TABLET PO SCH (10:19)
[2017-02-02] MEDS: POLYETHYLENE GLYCOL 3350 17 GM PACKET PO SCH (10:20)
[2017-02-02] MEDS: NADOLOL 40 MG TABLET PO SCH (10:21)
--- NOTE | 2017-02-02 10:27 | XRay Report ---
CLINICAL INFORMATION: Fracture follow-up TECHNIQUE: Portable left shoulder. Two views obtained. COMPARISON: Previous portable examination dated 01/26/[address] scan dated 01/18/2017 FINDINGS: Again demonstrated is a comminuted left shoulder fracture. Fracture through the surgical neck of the proximal left humerus with displacement. The humeral diaphysis is displaced medially. There is some foreshortening. Alignment is essentially unchanged. There are nondisplaced fractures of the greater and lesser tuberosities. Left scapula and clavicle are negative. No solid bony union. IMPRESSION: 1. Left shoulder fracture with dominant fracture through the surgical neck of the proximal left humerus 2. Displacement and foreshortening, no interval change. Interpreted and Authenticated by: Jacinto Roman 02/02/17
[2017-02-02] MEDS: CELECOXIB 100 MG CAPSULE PO SCH (10:38)
--- NOTE | 2017-02-02 11:08 | Discharge Summary ---
Medical - DS: Prov Patient information: Note initiated : 02/02/17 at 11:05 am Service Date, if different from initiated Date: [] Patient: Debra Wolff 81 y/o F admitted on 01/25/17 for Hip Fracture, Shoulder Fracture. Chief Complaint: [] Date of admission: 01/25/17 11:40 Discharge date: 02/02/17 Primary care physician: [f_Reg Prim Care Provider] Attending physician on admission: Sharron Pillai Consults: 01/26/17 07:43 Consult to Physician [CONS] Routine Comment: Consulting Provider: Jose Gilbert Reason For Exam: Physician to Consult 01/26/17 16:53 Consult to Physician [CONS] Routine Comment: Consulting Provider: Jacinto Boyce Reason For Exam: Physician to Consult Discharging clinician: Nanette Gregg Medical - DS: Meds - Discharge Medications Prescriptions: Acetaminophen [Tylenol] 1,000 mg PO Q4-6HP PRN #120 tablet PRN Reason: Pain Celecoxib [Celebrex] 100 mg PO DAILY #30 capsule HYDROmorphone [Dilaudid] 2 mg PO Q4HP PRN #40 tablet PRN Reason: Pain Lactulose [Cephulac] 30 gm PO TID PRN #120 oral.juan jose PRN Reason: Constipation Active and Home Medications: Home Medications Acetaminophen [Tylenol] 1,000 mg PO Q4-6HP PRN 01/18/17 [History Confirmed 01/25 Last Taken 01/17/17] Aspirin 81 mg PO DAILY 01/18/17 [History Confirmed 01/25/17 Last Taken 01/25/17 09:00] Atorvastatin Calcium 80 mg PO HS 01/18/17 [History Confirmed 01/25/17 Last Taken 01/24/17 21:00] Calcium Carbonate [Tums] 500 mg CHEWED Q4HP PRN 01/18/17 [History Confirmed 08/05 Last Taken 01/11/17] Clopidogrel Bisulfate [Plavix] 75 mg PO DAILY 01/18/17 [History Confirmed Last Taken 01/25/17 09:00] Docusate Sodium [Colace] 100 mg PO DAILY 01/18/17 [History Confirmed 01/25/17 Last Taken 01/17/17] Levothyroxine Sodium [Levoxyl] 100 mcg PO QAMCC 01/18/17 [History Confirmed 08/05 Last Taken 01/25/17 08:15] Lisinopril [Zestril] 20 mg PO BID 01/18/17 [History Confirmed 01/25/17 Last Taken 01/25/17 09:00] Minoxidil 2.5 mg PO BID 01/18/17 [History Confirmed 01/25/17 Last Taken 09:00] Nadolol [Corgard] 80 mg PO BID 01/18/17 [History Confirmed 01/25/17 Last Taken 01/25/17 09:00] Sertraline HCl [Zoloft] 75 mg PO DAILY 01/18/17 [History Confirmed 01/25/17 Last Taken 01/25/17 09:00] Sevelamer [Renvela] 1,600 mg PO TIDCC 01/18/17 [History Confirmed 01/25/17 Last Taken 01/25/17 09:00] Torsemide 100 mg PO DAILY 01/18/17 [History Confirmed 01/25/17 Last Taken 09:00] Vit B Cmplx 3/FA/Vit C/Biotin [Yamile-Luigi Rx Tablet] 1 tab PO DAILY 01/18/17 [ History Confirmed 01/25/17 Last Taken 01/17/17] 0.9 % Sodium Chloride [Saline Flush] 10 ml IV Q8 syringe 01/25/17 [Rx Confirmed 01/25/17 Last Taken 01/25/17 08:15] Acetaminophen [Tylenol] 650 mg PO Q4-6HP PRN #0 tablet 01/25/17 [Rx Confirmed Last Taken Unknown] Docusate Sodium [Colace] 100 mg PO BID capsule 01/25/17 [Rx Confirmed 01/25/17 Last Taken 01/25/17 09:00] HYDROmorphone [Dilaudid] 1 - 2 mg IV Q4HP PRN #0 syringe 01/25/17 [Rx Confirmed 01/25/17 Last Taken 01/24/17 22:30] HYDROmorphone [Dilaudid] 2 mg PO Q4HP PRN #0 tablet 01/25/17 [Rx Confirmed 01/25 Last Taken Unknown] Heparin 5,000 unit SQ Q12 vial 01/25/17 [Rx Confirmed 01/25/17 Last Taken 01/25 09:00] LORazepam [Ativan] 1 mg IV Q2-4HP PRN #0 vial 01/25/17 [Rx Confirmed 01/25/17 Last Taken Unknown] Ondansetron [Zofran] 4 mg IV Q4-6HP PRN #0 vial 01/25/17 [Rx Confirmed 01/25/17 Last Taken Unknown] Pantoprazole [Protonix] 40 mg IV QAMAC vial 01/25/17 [Rx Confirmed 01/25/17 Last Taken 01/25/17 08:15] Polyethylene Glycol 3350 [Miralax] 17 gm PO DAILY packet 01/25/17 [Rx Confirmed 01/25/17 Last Taken 01/24/17 09:00] Sennosides/Docusate Sodium [Senna Plus Tablet] 1 tab PO HS tablet 01/25/17 [Rx Confirmed 01/25/17 Last Taken 01/24/17 21:00] cloNIDine HCL [Catapres] 0.1 mg PO Q4HP PRN #0 tablet 01/25/17 [Rx Confirmed 08/05 Last Taken Unknown] cloNIDine HCL [Catapres] 0.2 mg PO TID tablet 01/25/17 [Rx Confirmed 01/25/17 Last Taken 01/25/17 09:00] traMADol HCL/ACETAMINOPHEN [Ultracet] 1 tab PO BID tablet 01/25/17 [Rx Confirmed 01/25/17 Last Taken 01/25/17 09:00] Medical - DS: Hosp Hospital course: Ms. Wolff is a 81 year old female who was admitted to [facility] January 18 - January 25, 2017, after a fall in which she sustained multiple fractures. She was discharged to swing bed status She was medically stable for transfer to a rehabilitation facility, but is still having intermittent severe bouts of pain due to her left arm fracture and left leg fractures, which would have made getting in and out of a vehicle to transport to and from dialysis 3 times a week quite a challenge. the cause of her fall was a bit unclear, but it is likely related to the fact that her blood sugar was 30just after her fall. She was previously maintained on glimipiride for her type 2 diabetes. she did undergo a left hip gamma nail placement by Dr. Boyce.her pelvis and arm fractures are being managed conservatively. she also had apparent EKG changes intraoperatively, and troponin did bump to 0.28. Telephone consultation was obtained with cardiology, and it is assumed she had a minor cardiac ischemic event. She has been maintained on aspirin and Plavix, statin and beta trinity, and has otherwise remained clinically asymptomatic. She does have a history of atrial fibrillation but remains off Coumadin, as she was recently started on Plavix and aspirin for presumed coronary disease. She did have a brief episode of hyponatremia, but this has been corrected with dialysis. 01/28/17: I was called by the nurse to see this patient's afternoon as she has had a fair amount of nausea today, and then had some vomiting just now. She also seems rather confused. She complained of increased pain this morning, so did not receive her pain medicines initially, but ate some crackers and took some IV Zofran. She subsequently received some IV Dilaudid for her pain. But it seems that she's had increasing nausea since then. She has not had a bowel movement for about 3 days now, according to nursing staff. On interview, the patient is a bit groggy. She denies subjective fever or chills, chest pain or palpitations, coughing or shortness of breath abdominal pain. She has had nausea and vomiting, but denies diarrhea. She denies dysuria but has decreased urine output related to renal failure. 01/29/17: last night and this morning, the patient continues to have episodes of confusion. She has also had intermittent vomiting. I think that her vomiting is related to her need for pain medications. Sometimes Zofran seems to help, and sometimes it does not.Her and daughter are in the room with her today. The daughter notes that the patient has had memory issues and occasional confusion at home, prior to admission. This would indicate probable underlying dementia. otherwise, the patient denies significant pain at this time. She denies chest pain or shortness of breath or palpitations. She denies abdominal pain. I believe her nausea has settled down for the last couple of hours. She has not had diarrhea, but did receive a laxative last night since she had had no bowel movement for 3 days. She denies dysuria, but does not make much urine because of her renal failure. 02/01- Pt seen examined, no acute overnight events, hb noted to be low, at 7.3, not on anaresp, pt denies any bleed, no hematuria, epistaxis blood in stools or halle reported She is otherwise fine except being tired. Discussed with her need for stool sample, Anemia workup and need to transfuse 2 units. pt verbalized agreement. Discussed with Nephrology who will write orders for anaresp 02/02 This morning the patient has no new complaints is doing well, denies any pain, no cp, sob, palpitations. She had HD done this AM. Her Bh was 10.9, no obvious source for blood loss noted, anemia likely from ESRD HTN- Resume home medications, which is a complex regime, managed by Dr Gilbert. Shoulder fracture/ Femur / Pelvic fractures - Follow up with Dr Hassan, X ray on the shoulder done this AM shows no significant changes NSTEMI- Needs to follow up with Cardiology as outpatient. ESRD follow up wht Nephrology She will be discharged to [facility] for ongoing rehab. Discharge diagnosis: Shoulde fracture, pelvic fracture, ESRD, femur fracture. - Time Spent with Patient Total time spent providing and/or coordinating discharge services: Greater than 30 minutes Medical - DS: Exam - Constitutional Vitals: Vital Signs Temp Pulse Resp BP Pulse Ox 02/02/17 03:38 137/59 02/02/17 01:47 160/66 02/02/17 01:02 98.6 F 74 16 186/95 97 02/01/17 22:00 98.6 F 68 16 133/74 99 02/01/17 21:50 98.2 F 67 16 167/65 99 02/01/17 21:35 98.4 F 66 16 145/67 97 02/01/17 20:00 98.9 F 64 16 130/70 98 02/01/17 18:57 98.9 F 64 16 125/68 97 02/01/17 18:47 98.9 F 64 16 115/56 96 Intake and Output 02/01/17 02/02/17 02/02/17 21:59 05:59 13:59 Intake Total 620 / 620 666 / 666 Output Total 2 / 2 101 / 101 Balance 618 / 618 565 / 565 Intake: IV 0 / 0 Sodium Chloride 0.9% 250 0 / 0 ml @ 20 mls/hr IV . [id number] [facility] Rx#:[id number] Oral 620 / 620 Blood Product 666 / 666 Output: # of times incontinent of 2 / 2 1 / urine Emesis 100 / 100 Other: Weight 115 lb 8 oz 117 lb 14.4 oz Patient Weight 02/03/17 05:59 Weight 117 lb 14.4 oz Additional comments: Constitutional; Afebrile, cooperative, alert, not in distress. Eyes- No icterus, Pupils equal, reactive, No periorbital swelling Ears- Ext ear normal, hearing normal to conversation. Neck- Midline trachea, supple Respiratory system: Air Entry equal on both sides, No crackles or wheezing, no rhonchi. CVS- Rate rhythm regular, S1,S2 heard, no gallop, no rub. Abdomen- Soft nontender abdomen, no organomegaly, no tenderness, no guarding or rigidity, [employer]- AOOx2-3, moving all extremities, no focal deficit noted. Medical - DS: Data Labs on day of discharge: Labs from last 24 hours 02/02/17 02/01/17 02/01/17 07:20 13:15 13:15 WBC 10.0 RBC 3.73 L Hgb 10.9 L Hct 33.4 L MCV 89.5 MCH 29.2 MCHC 32.6 RDW 15.6 H Plt Count 258 MPV 8.2 Total Counted 100 Seg Neutrophils % 78 Band Neutrophils % 1 Lymphocytes % 13 L Monocytes % (Manual) 5 Eosinophils % (Manual) 2 Myelocytes % 1 H Platelet Estimate Normal RBC Morphology Normal Absolute Retic 4.0 H Haptoglobin 148 Iron TIBC Unsat Iron Binding Transferrin % Sat Ferritin Vitamin B12 Folate 02/01/17 02/01/17 13:15 13:15 WBC RBC Hgb Hct MCV MCH MCHC RDW Plt Count MPV Total Counted Seg Neutrophils % Band Neutrophils % Lymphocytes % Monocytes % (Manual) Eosinophils % (Manual) Myelocytes % Platelet Estimate RBC Morphology Absolute Retic Haptoglobin Iron 34 L TIBC 167 L Unsat Iron Binding 133 Transferrin % Sat 20 Ferritin 5734.0 H Vitamin B12 1858 H Folate 15.6 Medical - DS: A/P - Patient/Caregiver Discharge Instructions Activity: increase activity as tolerated (see in instructions. ) Diet: Renal Additional Instructions: No weight bearing left upper extremity, No weight bearing left lower extremity but ok to stand and pivot for transfers. Ok to come out of the sling for ROM of the elbow, wrist, fingers. Take off the SÁNCHEZ wrap over arm at least once per day to allow skin to breath. Follow up with Dr Hassan in 7 days Follow up with Dialysis as per schedule with Dr Gilbert Follow up with PCP in 14 days. Prescriptions: Acetaminophen [Tylenol] 1,000 mg PO Q4-6HP PRN #120 tablet PRN Reason: Pain Celecoxib [Celebrex] 100 mg PO DAILY #30 capsule HYDROmorphone [Dilaudid] 2 mg PO Q4HP PRN #40 tablet PRN Reason: Pain Lactulose [Cephulac] 30 gm PO TID PRN #120 oral.juan jose PRN Reason: Constipation - Problem Maintenance (1) Anemia in ESRD (end-stage renal disease) Status: Acute (2) End stage renal disease on dialysis Status: Acute (3) Hyponatremia Status: Acute (4) Pain, postoperative, acute Status: Acute (5) Shoulder fracture, left Status: Acute - Follow up Plan Follow up with: Ambar Persaud MD [Primary Care Provider] - Jacinto Boyce MD [Physician] - (Please call/schedule a follow up to be seen in 7-10 days.) Disposition: Xfer SNF Prognosis: Fair Rehab Potential: Fair I certify that the patient requires SNF services: Yes Overall status at discharge: patient is progressing back to baseline Medical - DS: Qual - VTE Deep Vein Thrombosis/Pulmonary Embolism Present on Admission: No
--- NOTE | 2017-02-02 15:02 | Nephrology Progress Note ---
Subjective Patient information: Note initiated : 02/02/17 at 3:01 pm Service Date, if different from initiated Date: [] Patient: Debra Wolff 81 y/o F admitted on 01/25/17 for Hip Fracture, Shoulder Fracture. Chief Complaint: Pain is lot better Objective - Vital Signs Vital signs: Vital Signs Temp Pulse Resp BP BP Pulse Ox 02/02/17 12:47 98.2 F 57 L 16 118/65 97 02/02/17 03:38 137/59 02/02/17 01:47 160/66 02/02/17 01:02 98.6 F 74 16 186/95 97 02/01/17 22:00 98.6 F 68 16 133/74 99 02/01/17 21:50 98.2 F 67 16 167/65 99 02/01/17 21:35 98.4 F 66 16 145/67 97 02/01/17 20:00 98.9 F 64 16 130/70 98 02/01/17 18:57 98.9 F 64 16 125/68 97 02/01/17 18:47 98.9 F 64 16 115/56 96 Intake and Output 02/02/17 02/02/17 02/02/17 05:59 13:59 21:59 Intake Total 666 / 666 120 / 120 Output Total 101 / 101 Balance 565 / 565 120 / 120 Intake: IV 0 / 0 Sodium Chloride 0.9% 250 0 / 0 ml @ 20 mls/hr IV . [id number] [facility] Rx#:[id number] Oral 120 / 120 Blood Product 666 / 666 Output: # of times incontinent of 1 / 1 urine Emesis 100 / 100 Other: Meal Lunch Percent of Meal Consumed 25% Feeding Ability Independent Weight 117 lb 14.4 oz Patient Weight 02/03/17 05:59 Weight 117 lb 14.4 oz Intake & Output: Intake & Output 02/02/17 02/02/17 02/02/17 05:59 13:59 21:59 Intake Total 666 / 666 120 / 120 Output Total 101 / 101 Balance 565 / 565 120 / 120 Weight 117 lb 14.4 oz Intake: IV 0 / 0 Sodium Chloride 0.9% 250 0 / 0 ml @ 20 mls/hr IV . [id number] [facility] Rx#:[id number] Oral 120 / 120 Blood Product 666 / 666 Output: # of times incontinent of urine Emesis 100 / 100 Other: Meal Lunch Percent of Meal Consumed 25% Feeding Ability Independent - General Appearance General appearance: cachectic EENT: ATNC Neck: no JVD Respiratory: no kyphosis Cardiology: no murmurs Gastrointestinal: normoactive bowel sounds Integumentary: no rash - Lab 02/02/17 07:20 02/01/17 03:40 Most recent lab results Calcium 7.9 mg/dl (8.6-10.4) L 02/01/17 03:40 Phosphorus 1.0 mg/dL (2.7-4.5) L 02/01/17 03:40 Magnesium 2.6 mg/dL (1.6-2.5) H 02/01/17 03:40 Assessment and Plan (1) End stage renal disease on dialysis ESRD. Had dialysis today. Will be discharged to snf. HTN Blood pressure adequately controlled. DM. check blood sugar AC and HS and ss. Confusion related to pain meds. Stable. Anemia. Will have transfusion today. Status: Acute
== END 2017-02-02 13:45 | DRG 963 ==
LOC: ICU 11:40 → MEDSUR 16:00
PROVIDERS: ADMIT Internal Medicine; ATTEND Internal Medicine